=== PATIENT | female | born 1940 | race Caucasian/White ===

== ENCOUNTER → 2018-01-23 13:33 | Outpatient (CLI) | payer MEDICARE, MEDICAID, SELFPAY ==
--- NOTE | 2018-01-23 | DI.RAD.S_ITS ---
PROCEDURE: XR KNEE LT 1TO2V INDICATIONS: LEFT KNEE PAIN TECHNIQUE: 3 views of the knee were acquired. COMPARISON: None. FINDINGS: Bones: No fractures or dislocations. Severe joint space narrowing, subchondral sclerosis and osteophyte formation in the lateral femorotibial compartment and patellofemoral compartment. There is chondrocalcinosis. No suspicious bony lesions. Soft tissues: No joint effusion. No suspicious soft tissue calcifications. IMPRESSION: 1. Severe degenerative joint disease involving the lateral femorotibial compartment and patellofemoral compartment. 2. Chondrocalcinosis. Recommend clinical correlation for CPPD. Dictated by: Naya Rodriguez M.D. on 01/23/2018 at 17:14 Approved by: Naya Rodriguez M.D. on 01/23/2018 at 17:16
== END ==
PROVIDERS: Visit Provider Nurse Practitioner Family
DX: M17.12 Unilateral primary osteoarthritis, left knee (principal); M11.262 Other chondrocalcinosis, left knee; M25.562 Pain in left knee
CPT/HCPCS: 73560

== ENCOUNTER → 2018-02-02 07:49 | Outpatient (REF) | payer MEDICARE, MEDICAID, SELFPAY ==
[2018-02-02 08:36] LABS: Add Manual Diff / Slide Review NO; Basophils Percent Auto 0.8 % (0-2); Eosinophils Percent Auto 3.2 % (2-4); Hematocrit 40.7 % (36-46); Hemoglobin 13.8 g/dL (12.0-16.0); Lymphocytes Percent Auto 22.4 % (25-40); Mean Corpuscular HGB Conc 33.9 % (30-36); Mean Corpuscular Hemoglobin 30.2 PG (26-34); Mean Corpuscular Volume 88.9 fL (80-100); Monocytes Percent Auto 9.2 % (3-14); Neutrophils Absolute Auto 4000 /uL (3000-5900); Neutrophils Percent Auto 64.4 % (50-75); Platelet Count 220 X10^3/uL (150-400); Red Blood Cell Count 4.58 X10^6/uL (4.0-5.2); Red Cell Distribution Width 12.4 % (11.6-14.8); White Blood Cell Count 6.2 X10^3/uL (4.5-11.0)
[2018-02-02 08:52] LABS: BUN Creatinine Ratio 22.9 (6-22); Blood Urea Nitrogen 16 mg/dL (7-17); Calcium 9.4 mg/dL (8.4-10.2); Carbon Dioxide 31 mmol/L (22-32); Chloride 104 mmol/L (98-107); Estimated Glomerular Filt Rate > 60.0 mL/min (>60); Glucose 89 mg/dL (80-110); HEMOLYSIS < 15 (0-50); Magnesium 2.2 mg/dL (1.6-2.3); Potassium 4.3 mmol/L (3.4-5.1); Sodium 143 mmol/L (137-145)
== END ==
LOC: LAB 07:49
PROVIDERS: Visit Provider Nurse Practitioner Family
DX: M11.20 Other chondrocalcinosis, unspecified site (principal); M19.90 Unspecified osteoarthritis, unspecified site
CPT/HCPCS: 36415; 80048; 83735; 84443; 85025

== ENCOUNTER → 2018-02-27 11:00 | Outpatient (CLI) | payer MEDICARE, MEDICAID, SELFPAY ==
--- NOTE | 2018-02-27 | DI.US.S_ITS ---
PROCEDURE: US PELVIC COMPLETE INDICATIONS: POSTMENOPAUSAL BLEEDING TECHNIQUE: Real-time scanning was performed of the pelvic organs, with image documentation. Additional endovaginal scanning was necessary due to incomplete visualization of the adnexal and endometrial structures by transabdominal scanning. COMPARISON: None. FINDINGS: Transabdominal scanning: Limited scanning through the kidneys shows no hydronephrosis. No pathologic free abdominal or pelvic fluid. Endovaginal scanning: Uterus: Uterus is not well seen by transabdominal or endovaginal technique and appears enlarged. The endometrial complex is not well visualized cannot be accurately evaluated. Ovaries: Not visualized. IMPRESSION: Essentially nondiagnostic pelvic ultrasound as the uterus is not well-visualized, the endometrial complex is suboptimally visualized and the ovaries are not seen bilaterally. If indicated, pre and post contrast gynecologic protocol MRI could be performed for further assessment. Dictated by: Kwaku CABRAL Interpreted: Crystal Edgar MD on 02/27/2018 at 12:15 Approved by: Crystal Edgar MD, PhD on 02/27/2018 at 13:49
== END ==
PROVIDERS: Visit Provider Nurse Practitioner Family
DX: N95.0 Postmenopausal bleeding (principal)
CPT/HCPCS: 76830; 76856

== ENCOUNTER → 2018-03-09 07:50 | Outpatient (REF) | payer MEDICARE, MEDICAID, SELFPAY ==
[2018-03-09 08:23] LABS: Estimated Glomerular Filt Rate > 60.0 mL/min (>60)
== END ==
LOC: LAB 07:50
PROVIDERS: Visit Provider Nurse Practitioner Family
DX: N95.0 Postmenopausal bleeding (principal)
CPT/HCPCS: 36415; 82565

== ENCOUNTER → 2018-03-21 16:28 | Outpatient (CLI) | payer MEDICARE, MEDICAID, SELFPAY ==
--- NOTE | 2018-03-21 16:32 | DI.MRI.S_ITS ---
PROCEDURE: MR PELVIS WO/W CON INDICATIONS: POST MENOPAUSAL BLEEDING TECHNIQUE: Coronal HASTE, sagittal breath-hold T2 FSE; axial T1 FSE with and without fat saturation through the pelvis. Optional long- and short-axis uterine nonbreath-hold T2 FSE through the uterus. Sagittal or axial dynamic VIBE during administration of contrast. Post-contrast axial or coronal VIBE/2-D FLASH with fat saturation from the iliac crests to the symphysis. Optional diffusion weighted imaging and ADC may be performed. COMPARISON: [facility], , US PELVIC COMPLETE, 02/27/2018, 11:24. FINDINGS: Image quality: Excellent. Uterus: Endometrium is normal in thickness. Junctional zone is normal in thickness at 12 mm or less. There is an ovoid T2 hypointense mass along the fundal endometrium with associated mild mass effect. Findings likely represent asymmetric also fibroid and measures approximately 1.6 x 1.4 x 1.6 cm. In addition, there is a large ovoid slightly lobulated T2 hyperintense mass in the left adnexa measuring approximately 8.1 x 7.6 x 8.0 cm which is contiguous with the uterus and most likely represents an exophytic fibroid. This demonstrates mildly heterogeneous hypoenhancement following contrast administration. In addition, there are a few additional small low T2 signal intensity foci within the uterus compatible with smaller fibroids. Adnexa: The ovaries appear within normal size limits. The left ovary abuts the left adnexal mass. Urinary system: The urinary bladder is partially distended with mild trabeculation of the bladder wall and small areas of cystic changes suggesting sequelae of chronic bladder outlet obstruction. Distal ureters are non distended. Urethra appears normal in morphology. Nodes and vessels: No pelvic or inguinal adenopathy by size criteria. Iliac vessels are normal in size. Bowel and peritoneum: No pathologic free pelvic fluid. Inferior colon and small bowel loops are normal in caliber. Soft tissues: No inguinal hernias. No findings of pelvic floor incompetence in the absence of provocation. Bones: There is heterogeneous bone marrow signal intensity consistent with hematopoietic marrow reconversion. In addition, there is a discrete ovoid T2 hyperintense lesion in the posterior right ilium measuring 1.6 x 0.9 x 1.9 cm which demonstrates enhancement following contrast administration. IMPRESSION: 1. Small T2 hypointense mass along the endometrium likely represents a submucosal fibroid and may be associated with patient's bleeding. 2. Large T2 hypointense exophytic mass contiguous with the left aspect of the uterus. This also likely represents a large fibroid. However, a low-grade leiomyosarcoma cannot be distinguished by imaging. Consider surgical consultation. 3. Enhancing lesion in the right iliac bone is nonspecific but metastatic disease cannot be excluded. Consider further evaluation with dedicated bone scan. 4. Mild trabeculation of the bladder wall suggesting sequela of chronic bladder outlet obstruction. Dictated by: Luciano Moses M.D. on 03/22/2018 at 15:06 Approved by: Luciano Moses M.D. on 03/22/2018 at 15:17
== END ==
PROVIDERS: Visit Provider Nurse Practitioner Family
DX: N95.0 Postmenopausal bleeding (principal); N85.9 Noninflammatory disorder of uterus, unspecified; N32.89 Other specified disorders of bladder; M89.9 Disorder of bone, unspecified
CPT/HCPCS: 72197; A9579

== ENCOUNTER → 2018-05-02 08:45 | Outpatient (REF) | payer MEDICARE, MEDICAID, SELFPAY ==
[2018-05-02 10:05] LABS: Add Manual Diff / Slide Review NO; Eosinophils Percent Auto 1.7 % (2-4); Hematocrit 40.8 % (36-46); Hemoglobin 13.7 g/dL (12.0-16.0); Lymphocytes Percent Auto 7.1 % (25-40); Mean Corpuscular HGB Conc 33.6 % (30-36); Mean Corpuscular Hemoglobin 29.9 PG (26-34); Mean Corpuscular Volume 88.9 fL (80-100); Monocytes Percent Auto 7.7 % (3-14); Neutrophils Absolute Auto 6400 /uL (3000-5900); Neutrophils Percent Auto 82.5 % (50-75); Platelet Count 210 X10^3/uL (150-400); Red Blood Cell Count 4.59 X10^6/uL (4.0-5.2); White Blood Cell Count 7.8 X10^3/uL (4.5-11.0)
[2018-05-02 10:18] LABS: Alanine Aminotransferase 19 IU/L (9-52); Albumin 4.1 g/dL (3.5-5.0); Albumin Globulin Ratio 1.4 (1.0-2.8); Alkaline Phosphatase 78 U/L (38-126); Aspartate Aminotransferase 19 IU/L (14-36); BUN Creatinine Ratio 25.7 (6-22); Bilirubin Total 0.6 mg/dL (0.2-1.3); Blood Urea Nitrogen 18 mg/dL (7-17); Calcium 9.2 mg/dL (8.4-10.2); Carbon Dioxide 30 mmol/L (22-32); Chloride 104 mmol/L (98-107); Cholesterol 223 mg/dL (140-199); Estimated Glomerular Filt Rate > 60.0 mL/min (>60); Globulin 2.9 g/dL (1.7-4.1); Glucose 80 mg/dL (80-110); HDL Cholesterol 61 mg/dL (40-60); HEMOLYSIS < 15 (0-50); LDL Cholesterol Calculated 148 mg/dL (<100); Sodium 144 mmol/L (137-145); Triglycerides 70 mg/dL (35-150)
== END ==
LOC: LAB 08:45
PROVIDERS: PCP Nurse Practitioner Family; Visit Provider Internal Medicine
DX: E78.5 Hyperlipidemia, unspecified (principal)
CPT/HCPCS: 36415; 80053; 80061; 85025

== ENCOUNTER → 2018-06-08 19:06 | Outpatient (REF) | payer MEDICARE, MEDICAID, SELFPAY ==
[2018-06-12 14:43] LABS: Fecal Immunochemical Test NOT DETECTED
== END ==
LOC: LAB 19:06
PROVIDERS: PCP Nurse Practitioner Family; Visit Provider Nurse Practitioner Family
DX: K62.5 Hemorrhage of anus and rectum (principal)
CPT/HCPCS: 82274

== ENCOUNTER → 2018-06-15 07:22 | Outpatient (REF) | payer MEDICARE, MEDICAID, SELFPAY ==
[2018-06-15 07:36] LABS: Hemoglobin 13.8 g/dL (12.0-16.0)
== END ==
LOC: LAB 07:22
PROVIDERS: PCP Nurse Practitioner Family; Visit Provider Nurse Practitioner Family
DX: K62.5 Hemorrhage of anus and rectum (principal)
CPT/HCPCS: 36415; 85014; 85018

== ENCOUNTER → 2018-09-23 08:06 | Outpatient (REF) | payer MEDICARE, MEDICAID, SELFPAY ==
[2018-09-23 08:09] LABS: Bacteria Urine None Seen
[2018-09-23 08:17] LABS: Appearance Urine UA CLEAR; Bilirubin Urine UA NEGATIVE (NEGATIVE); Color Urine UA YELLOW; Glucose Urine UA NEGATIVE (Negative); Ketones Urine UA NEGATIVE (NEGATIVE); Leukocyte Esterase Urine UA NEGATIVE (NEGATIVE); Nitrite Urine UA NEGATIVE (Negative); Occult Blood Urine UA TRACE-INTACT (Negative); Protein Urine UA NEGATIVE (Negative); Urobilinogen Urine UA 0.2 E.U./dL (0.2)
[2018-09-23 08:31] LABS: Culture Indicated Urine Cult Not Indicated; RBC Urine 0-1/HPF (0-5/HPF); WBC Urine 0-1/HPF (0-5/HPF)
== END ==
LOC: LAB 08:06
PROVIDERS: PCP Nurse Practitioner Family; Visit Provider Nurse Practitioner Family
DX: R35.0 Frequency of micturition (principal); R32 Unspecified urinary incontinence
CPT/HCPCS: 81001

== ENCOUNTER → 2018-09-24 08:23 | Outpatient (REF) | payer MEDICARE, MEDICAID, SELFPAY ==
[2018-09-24 08:57] LABS: Blood Urea Nitrogen 21 mg/dL (7-17); Calcium 9.5 mg/dL (8.4-10.2); Carbon Dioxide 27 mmol/L (22-32); Chloride 105 mmol/L (98-107); Cholesterol 251 mg/dL (140-199); Estimated Glomerular Filt Rate > 60.0 mL/min (>60); Glucose 83 mg/dL (80-110); HDL Cholesterol 66 mg/dL (40-60); HEMOLYSIS 15 (0-50); LDL Cholesterol Calculated 170 mg/dL (<100); Potassium 4.2 mmol/L (3.4-5.1); Sodium 140 mmol/L (137-145); Triglycerides 77 mg/dL (35-150)
[2018-09-24 09:07] LABS: Add Manual Diff / Slide Review NO; Basophils Absolute Auto 100 /uL (0-100); Basophils Percent Auto 0.9 % (0-2); Eosinophils Absolute Auto 200 /uL (0-450); Eosinophils Percent Auto 2.9 % (2-4); Hematocrit 42.1 % (36-46); Hemoglobin 14.1 g/dL (12.0-16.0); Lymphocytes Absolute Auto 1600 /uL (1100-4500); Lymphocytes Percent Auto 26.2 % (25-40); Mean Corpuscular HGB Conc 33.4 % (30-36); Mean Corpuscular Hemoglobin 29.5 PG (26-34); Mean Corpuscular Volume 88.4 fL (80-100); Monocytes Absolute Auto 400 /uL (0-900); Monocytes Percent Auto 6.3 % (3-14); Neutrophils Absolute Auto 3800 /uL (1500-7000); Neutrophils Percent Auto 63.7 % (50-75); Platelet Count 218 X10^3/uL (150-400); Red Blood Cell Count 4.76 X10^6/uL (4.0-5.2); Red Cell Distribution Width 12.9 % (11.6-14.8); White Blood Cell Count 5.9 X10^3/uL (4.5-11.0)
== END ==
LOC: LAB 08:23
PROVIDERS: PCP Nurse Practitioner Family; Visit Provider Nurse Practitioner Family
DX: K62.5 Hemorrhage of anus and rectum (principal); E78.2 Mixed hyperlipidemia
CPT/HCPCS: 36415; 80048; 80061; 85025

== ENCOUNTER → 2018-09-28 07:30 | Outpatient (REF) | payer MEDICARE, MEDICAID, SELFPAY ==
[2018-09-28 09:40] LABS: Carcinoembryonic Antigen 1.4 ng/mL (0.1-3.0)
== END ==
LOC: LAB 07:30
PROVIDERS: PCP Nurse Practitioner Family; Visit Provider Nurse Practitioner Family
DX: K62.5 Hemorrhage of anus and rectum (principal)
CPT/HCPCS: 36415; 82378

== ENCOUNTER → 2019-04-24 20:37 | Outpatient (ROUT) | payer MEDICARE, MEDICAID, SELFPAY ==
[2019-04-24 20:43] LABS: Appearance Urine UA CLEAR; Bilirubin Urine UA NEGATIVE (NEGATIVE); Color Urine UA YELLOW; Glucose Urine UA NEGATIVE (Negative); Ketones Urine UA NEGATIVE (NEGATIVE); Leukocyte Esterase Urine UA 2+ (NEGATIVE); Nitrite Urine UA NEGATIVE (Negative); Occult Blood Urine UA TRACE-INTACT (Negative); Protein Urine UA NEGATIVE (Negative); Specific Gravity Urine UA 1.025 (1.000-1.035); Urobilinogen Urine UA 0.2 E.U./dL (0.2)
[2019-04-24 21:00] LABS: Bacteria Urine Few (2-10); Culture Indicated Urine Specimen Cultured; Mucus Urine 1+ (Negative); RBC Urine 5-10/HPF (0-5/HPF); Squamous Epithelial Cell Urine 1-5 /HPF (0-5/HPF); Transitional Epi Cells Urine 1-5/HPF (0-5/HPF); WBC Urine 30-100/HPF (0-5/HPF)
== END ==
PROVIDERS: PCP Nurse Practitioner Family; Visit Provider Nurse Practitioner Family
DX: R39.81 Functional urinary incontinence (principal)
CPT/HCPCS: 81001; 87077; 87086; 87147

== ENCOUNTER → 2019-06-27 02:56 | Outpatient (ROUT) | payer MEDICARE, MEDICAID, SELFPAY ==
[2019-06-27 03:01] LABS: RBC Urine None Seen (0-5/HPF)
[2019-06-27 03:04] LABS: Appearance Urine UA CLEAR; Bilirubin Urine UA NEGATIVE (NEGATIVE); Color Urine UA YELLOW; Glucose Urine UA NEGATIVE (Negative); Ketones Urine UA NEGATIVE (NEGATIVE); Leukocyte Esterase Urine UA 1+ (NEGATIVE); Nitrite Urine UA NEGATIVE (Negative); Occult Blood Urine UA NEGATIVE (Negative); Protein Urine UA NEGATIVE (Negative); Urobilinogen Urine UA 0.2 E.U./dL (0.2)
[2019-06-27 03:44] LABS: Bacteria Urine Few (2-10); Culture Indicated Urine Specimen Cultured; Squamous Epithelial Cell Urine 0-1 /HPF (0-5/HPF); WBC Urine 0-1/HPF (0-5/HPF)
== END ==
PROVIDERS: PCP Nurse Practitioner Family; Visit Provider Nurse Practitioner Family
DX: R35.0 Frequency of micturition (principal)
CPT/HCPCS: 81001; 87086

== ENCOUNTER → 2019-08-16 07:24 | Outpatient (ROUT) | payer OTHER, MEDICAID, SELFPAY ==
[2019-08-16 08:29] LABS: Add Manual Diff / Slide Review NO; Alanine Aminotransferase 14 IU/L (<35); Albumin 4.5 g/dL (3.5-5.0); Albumin Globulin Ratio 1.3 (1.0-2.8); Alkaline Phosphatase 90 U/L (38-126); Aspartate Aminotransferase 22 IU/L (14-36); BUN Creatinine Ratio 27.5 (6-22); Basophils Absolute Auto 100 /uL (0-100); Basophils Percent Auto 0.9 % (0-2); Bilirubin Total 0.4 mg/dL (0.2-1.3); Blood Urea Nitrogen 22 mg/dL (7-17); Calcium 9.8 mg/dL (8.4-10.2); Carbon Dioxide 27 mmol/L (22-32); Chloride 104 mmol/L (98-107); Eosinophils Absolute Auto 300 /uL (0-450); Eosinophils Percent Auto 3.8 % (2-4); Estimated Glomerular Filt Rate > 60.0 mL/min (>60); Globulin 3.5 g/dL (1.7-4.1); Glucose 94 mg/dL (80-110); HEMOLYSIS < 15 (0-50); Hematocrit 40.2 % (36-46); Hemoglobin 13.8 g/dL (12.0-16.0); Lymphocytes Absolute Auto 1400 /uL (1100-4500); Lymphocytes Percent Auto 17.8 % (25-40); Mean Corpuscular HGB Conc 34.3 % (30-36); Mean Corpuscular Volume 87.4 fL (80-100); Monocytes Absolute Auto 500 /uL (0-900); Monocytes Percent Auto 6.5 % (3-14); Neutrophils Absolute Auto 5500 /uL (1500-7000); Platelet Count 240 X10^3/uL (150-400); Potassium 4.4 mmol/L (3.4-5.1); Red Cell Distribution Width 12.7 % (11.6-14.8); Sodium 142 mmol/L (137-145); White Blood Cell Count 7.7 X10^3/uL (4.5-11.0)
[2019-08-16 09:12] LABS: Thyroid Stimulating Hormone 2.49 uIU/mL (0.47-4.68)
[2019-08-16 09:18] LABS: Vitamin B12 296 pg/mL (239-931)
== END ==
PROVIDERS: PCP Nurse Practitioner Family; Visit Provider Nurse Practitioner Family
DX: R79.89 Other specified abnormal findings of blood chemistry (principal); E03.8 Other specified hypothyroidism; R53.83 Other fatigue
CPT/HCPCS: 36415; 80053; 82607; 84443; 85025

== ENCOUNTER → 2019-08-24 12:03 | Outpatient (ROUT) | payer OTHER, MEDICAID, SELFPAY ==
[2019-08-24 12:05] LABS: Bacteria Urine None Seen; RBC Urine None Seen (0-5/HPF); WBC Urine None Seen (0-5/HPF)
[2019-08-24 12:17] LABS: Appearance Urine UA CLEAR; Bilirubin Urine UA NEGATIVE (NEGATIVE); Color Urine UA YELLOW; Glucose Urine UA NEGATIVE (Negative); Ketones Urine UA NEGATIVE (NEGATIVE); Leukocyte Esterase Urine UA NEGATIVE (NEGATIVE); Nitrite Urine UA NEGATIVE (Negative); Occult Blood Urine UA NEGATIVE (Negative); Protein Urine UA NEGATIVE (Negative); Specific Gravity Urine UA 1.015 (1.000-1.035); Urobilinogen Urine UA 0.2 E.U./dL (0.2)
[2019-08-24 12:18] LABS: pH Urine UA 7.5 (4.5-8.0)
[2019-08-24 12:19] LABS: Culture Indicated Urine Cult Not Indicated; Urine Comments Microscopic Normal
== END ==
PROVIDERS: PCP Nurse Practitioner Family; Visit Provider Nurse Practitioner Family
DX: R53.83 Other fatigue (principal); R35.0 Frequency of micturition
CPT/HCPCS: 81001

== ENCOUNTER → 2019-12-27 07:21 | Outpatient (ROUT) | payer OTHER, MEDICAID, SELFPAY ==
[2019-12-27 08:37] LABS: BUN Creatinine Ratio 27.6 (6-22); Blood Urea Nitrogen 21 mg/dL (7-17); Carbon Dioxide 28 mmol/L (22-32); Chloride 104 mmol/L (98-107); Estimated Glomerular Filt Rate > 60.0 mL/min (>60); Glucose 92 mg/dL (80-110); HEMOLYSIS < 15 (0-50); Potassium 4.3 mmol/L (3.4-5.1); Sodium 139 mmol/L (137-145)
== END ==
PROVIDERS: PCP Nurse Practitioner Family; Visit Provider Nurse Practitioner Family
DX: R60.9 Edema, unspecified (principal)
CPT/HCPCS: 36415; 80048

== ENCOUNTER → 2020-02-12 07:25 | Outpatient (ROUT) | payer OTHER, MEDICAID, SELFPAY ==
[2020-02-12 08:23] LABS: Add Manual Diff / Slide Review NO; Basophils Absolute Auto 0 /uL (0-100); Basophils Percent Auto 0.4 % (0-2); Eosinophils Absolute Auto 100 /uL (0-450); Eosinophils Percent Auto 2.3 % (2-4); Hematocrit 40.8 % (36-46); Hemoglobin 13.5 g/dL (12.0-16.0); Lymphocytes Absolute Auto 1300 /uL (1100-4500); Lymphocytes Percent Auto 20.1 % (25-40); Mean Corpuscular HGB Conc 33.2 % (30-36); Mean Corpuscular Hemoglobin 29.5 PG (26-34); Mean Corpuscular Volume 88.9 fL (80-100); Monocytes Absolute Auto 400 /uL (0-900); Monocytes Percent Auto 6.6 % (3-14); Neutrophils Absolute Auto 4600 /uL (1500-7000); Neutrophils Percent Auto 70.6 % (50-75); Platelet Count 257 X10^3/uL (150-400); Red Blood Cell Count 4.59 X10^6/uL (4.0-5.2); Red Cell Distribution Width 12.9 % (11.6-14.8); White Blood Cell Count 6.5 X10^3/uL (4.5-11.0)
[2020-02-12 08:30] LABS: BUN Creatinine Ratio 22.4 (6-22); Blood Urea Nitrogen 15 mg/dL (7-17); Calcium 9.6 mg/dL (8.4-10.2); Carbon Dioxide 26 mmol/L (22-32); Chloride 107 mmol/L (98-107); Estimated Glomerular Filt Rate > 60.0 mL/min (>60); Glucose 96 mg/dL (80-110); HEMOLYSIS < 15 (0-50); Potassium 4.1 mmol/L (3.4-5.1); Sodium 139 mmol/L (137-145)
[2020-02-12 09:05] LABS: Thyroid Stimulating Hormone 2.29 uIU/mL (0.47-4.68)
== END ==
PROVIDERS: PCP Nurse Practitioner Family; Visit Provider Nurse Practitioner Family
DX: F32.9 Major depressive disorder, single episode, unspecified (principal)
CPT/HCPCS: 36415; 80048; 84443; 85025

== ENCOUNTER → 2020-07-08 08:14 | Outpatient (ROUT) | payer OTHER, MEDICAID, SELFPAY ==
[2020-07-08 09:05] LABS: Add Manual Diff / Slide Review NO; Basophils Absolute Auto 0 /uL (0-100); Basophils Percent Auto 0.5 % (0-2); Eosinophils Absolute Auto 100 /uL (0-450); Eosinophils Percent Auto 2.2 % (2-4); Hematocrit 41.4 % (36-46); Lymphocytes Absolute Auto 1400 /uL (1100-4500); Lymphocytes Percent Auto 21.3 % (25-40); Mean Corpuscular HGB Conc 33.7 % (30-36); Mean Corpuscular Hemoglobin 29.9 PG (26-34); Mean Corpuscular Volume 88.9 fL (80-100); Monocytes Absolute Auto 300 /uL (0-900); Monocytes Percent Auto 5.1 % (3-14); Neutrophils Absolute Auto 4700 /uL (1500-7000); Neutrophils Percent Auto 70.9 % (50-75); Platelet Count 238 X10^3/uL (150-400); Red Blood Cell Count 4.66 X10^6/uL (4.0-5.2); White Blood Cell Count 6.6 X10^3/uL (4.5-11.0)
[2020-07-08 10:01] LABS: Thyroid Stimulating Hormone 1.62 uIU/mL (0.47-4.68)
[2020-07-08 12:52] LABS: BUN Creatinine Ratio 21.6 (6-22); Blood Urea Nitrogen 16 mg/dL (7-17); Calcium 9.6 mg/dL (8.4-10.2); Carbon Dioxide 32 mmol/L (22-32); Chloride 107 mmol/L (98-107); Estimated Glomerular Filt Rate > 60.0 mL/min (>60); Glucose 100 mg/dL (80-110); HEMOLYSIS < 15 (0-50); Sodium 142 mmol/L (137-145)
[2020-07-08 13:40] LABS: Vitamin B12 251 pg/mL (239-931)
== END ==
PROVIDERS: PCP Nurse Practitioner Family; Visit Provider Nurse Practitioner Family
DX: R41.82 Altered mental status, unspecified (principal)
CPT/HCPCS: 36415; 80048; 82607; 84443; 85025

== ENCOUNTER → 2020-08-08 16:16 | Outpatient (ROUT) | payer OTHER, MEDICAID, SELFPAY ==
[2020-08-08 16:24] LABS: Bacteria Urine None Seen; RBC Urine None Seen (0-5/HPF); WBC Urine None Seen (0-5/HPF)
[2020-08-08 16:40] LABS: Appearance Urine UA CLEAR; Bilirubin Urine UA NEGATIVE (NEGATIVE); Color Urine UA YELLOW; Glucose Urine UA NEGATIVE (Negative); Ketones Urine UA NEGATIVE (NEGATIVE); Leukocyte Esterase Urine UA NEGATIVE (NEGATIVE); Nitrite Urine UA NEGATIVE (Negative); Occult Blood Urine UA NEGATIVE (Negative); Protein Urine UA NEGATIVE (Negative); Urobilinogen Urine UA 0.2 E.U./dL (0.2)
[2020-08-08 16:55] LABS: Culture Indicated Urine Cult Not Indicated; Squamous Epithelial Cell Urine 1-5 /HPF (0-5/HPF)
== END ==
PROVIDERS: PCP Nurse Practitioner Family; Visit Provider Nurse Practitioner Family
DX: R35.0 Frequency of micturition (principal); R32 Unspecified urinary incontinence
CPT/HCPCS: 81001

== ENCOUNTER → 2020-08-26 07:27 | Outpatient (ROUT) | payer OTHER, MEDICAID, SELFPAY ==
[2020-08-26 07:41] LABS: Ammonia (NH3) < 9 umol/L (9-30)
[2020-08-26 08:33] LABS: Add Manual Diff / Slide Review NO; Basophils Absolute Auto 100 /uL (0-100); Basophils Percent Auto 0.6 % (0-2); Eosinophils Absolute Auto 200 /uL (0-450); Eosinophils Percent Auto 2.5 % (2-4); Hematocrit 40.2 % (36-46); Hemoglobin 13.5 g/dL (12.0-16.0); Lymphocytes Absolute Auto 1600 /uL (1100-4500); Lymphocytes Percent Auto 20.7 % (25-40); Mean Corpuscular HGB Conc 33.7 % (30-36); Mean Corpuscular Hemoglobin 29.8 PG (26-34); Mean Corpuscular Volume 88.5 fL (80-100); Monocytes Absolute Auto 500 /uL (0-900); Monocytes Percent Auto 6.3 % (3-14); Neutrophils Absolute Auto 5500 /uL (1500-7000); Neutrophils Percent Auto 69.9 % (50-75); Platelet Count 263 X10^3/uL (150-400); Red Blood Cell Count 4.54 X10^6/uL (4.0-5.2); Red Cell Distribution Width 12.8 % (11.6-14.8); White Blood Cell Count 7.8 X10^3/uL (4.5-11.0)
[2020-08-26 08:41] LABS: Alanine Aminotransferase 13 IU/L (<35); Albumin Globulin Ratio 1.3 (1.0-2.8); Alkaline Phosphatase 76 U/L (38-126); Aspartate Aminotransferase 20 IU/L (14-36); BUN Creatinine Ratio 26.8 (6-22); Bilirubin Total 0.4 mg/dL (0.2-1.3); Blood Urea Nitrogen 19 mg/dL (7-17); Calcium 9.6 mg/dL (8.4-10.2); Carbon Dioxide 29 mmol/L (22-32); Chloride 107 mmol/L (98-107); Estimated Glomerular Filt Rate > 60.0 mL/min (>60); Globulin 3.2 g/dL (1.7-4.1); Glucose 97 mg/dL (80-110); HEMOLYSIS < 15 (0-50); Sodium 139 mmol/L (137-145); Total Protein 7.2 g/dL (6.3-8.2)
[2020-08-26 09:31] LABS: Vitamin B12 263 pg/mL (239-931)
== END ==
PROVIDERS: PCP Nurse Practitioner Family; Visit Provider Nurse Practitioner Family
DX: F22 Delusional disorders (principal)
CPT/HCPCS: 36415; 80053; 82140; 82607; 85025

== ENCOUNTER 2020-09-17 13:56 | Emergency (ER) | payer OTHER, MEDICAID, SELFPAY ==
[2020-09-17 14:00] VITALS: BP 138/77; PULSE 90; RESP 20; TEMP 36.9; O2SAT 95; BMI 31.8
--- NOTE | 2020-09-17 14:04 | ED.AMS ---
HPI - Altered Mental Status General Chief Complaint: Neuro Symptoms/Deficit Stated Complaint: auditory hallucinations/delusions not at baseline Time Seen by Provider: 09/17/20 13:57 Source: patient Limitations: no limitations History of Present Illness HPI narrative: 79-year-old female nonsmoker with advancing behavior disorder and delirium from a local nursing facility presents due to the presence of increasing auditory hallucinations over the past month or so. She has been seen by her primary care provider and they have initiated medications but the patient escalated earlier today and was sent here for evaluation. Patient has had no trauma has had no fever chills denies nausea, vomiting or diarrhea. She has not been violent, denies desire to hurt herself or others. She is not currently hearing or seeing anything that is not there and is very pleasant and agreeable. Onset (ago): day(s) Severity: mild Associated symptoms: denies other symptoms Related Data Home Medications Medication Instructions Recorded Confirmed acetaminophen 325 mg PO BID 09/17/20 09/17/20 acetaminophen 650 mg PO Q4H PRN 09/17/20 09/17/20 docusate sodium 100 mg PO DAILY PRN 09/17/20 09/17/20 fluticasone propionate [Allergy 1 spray INTRANASAL DAILY PRN 09/17/20 09/17/20 Relief (fluticasone)] fluticasone propionate [Flonase] 1 spray INTRANASAL DAILY PRN 09/17/20 09/17/20 phenyleph-shark [id number] 1 applic NM QID PRN 09/17/20 09/17/20 [Preparation H] quetiapine 25 mg PO BID 09/17/20 09/17/20 Allergies Allergy/AdvReac Type Severity Reaction Status Date / Time Penicillins [PENICILLINS] Allergy Unknown Verified 09/17/20 14:07 Review of Systems Constitutional Constitutional: Denies chills, Denies fatigue, Denies fever(s), Denies frequent falls, Denies lethargy and Denies weakness Eyes Eyes: Denies change in vision, Denies eye discharge, Denies irritation and Denies loss of vision ENT Ears, Nose, Mouth, and Throat: Denies change in voice, Denies dizziness, Denies neck pain, Denies sore throat and Denies throat swelling Cardiovascular Cardiovascular: Denies chest pain, Denies irregular heart rhythm, Denies lightheadedness, Denies palpitations, Denies dyspnea, Denies dyspnea on exertion and Denies orthopnea Respiratory Respiratory: Denies cough, Denies dyspnea, Denies dyspnea on exertion and Denies wheezing Gastrointestinal Gastrointestinal: Denies abdominal pain, Denies change in bowel habits, Denies diarrhea, Denies nausea and Denies vomiting Musculoskeletal Musculoskeletal: Denies neck pain and Denies numbness Integumentary/Breasts Skin/Breast: Denies pruritus, Denies erythema, Denies rash and Denies wounds Neurologic Neurologic: Denies behavioral changes, Denies confusion, Denies dizziness, Denies frequent falls, Denies loss of vision, Denies numbness and Denies weakness Psychiatric Psychiatric: Denies anxiety, Denies behavioral changes, Denies confusion, Denies depression, Reports auditory hallucinations, Denies homicidal ideation and Denies suicidal ideation Endocrine Endocrine: Denies fatigue, Denies flushing and Denies palpitations Hematologic/Lymphatic Hematologic/Lymphatic: Denies easy bruising Allergic/Immunologic Allergic/Immunologic: Denies urticaria, Denies throat swelling and Denies wheezing Patient History Social History Smoking Status: Never smoker Smoking Status: Never smoker Exam Narrative Exam Narrative: GENERAL: [79] year old patient appears stated age. Well-nourished, well-developed patient, in no obvious distress, very pleasant, very hard of hearing. No current complaints HEAD: Atraumatic. Normocephalic. EYES: Pupils equal round and reactive. Extraocular motions intact. No scleral icterus. No injection or drainage. ENT: Nose without bleeding, purulent drainage. Throat without erythema, tonsillar hypertrophy or exudate. Airway patent. NECK: Trachea midline. Non tender CARDIOVASCULAR: Regular rate and rhythm without murmurs, gallops, or rubs. RESPIRATORY: Clear to auscultation. Breath sounds equal bilaterally. No wheezes, rales, or rhonchi. GASTROINTESTINAL: Abdomen soft, non-tender, nondistended. EXTREMITIES: No edema or joint tenderness. BACK: Nontender without deformity or crepitance. No flank tenderness. NEURO: Moving all extremities, cranial nerves 2-12 grossly intact SKIN: No rash or erythema of visible areas Initial Vital Signs Initial Vital Signs: Vital Signs Temperature 98.5 F 09/17/20 14:00 Pulse Rate 90 09/17/20 14:00 Respiratory Rate 20 09/17/20 14:00 Blood Pressure 138/77 09/17/20 14:00 Pulse Oximetry 95 09/17/20 14:00 Course Orders Ordered: ED Orders 09/17/20 14:05 CT head/brain wo con Stat 09/17/20 14:10 Urinalysis and Microscopic Stat 09/17/20 14:17 Complete Blood Count AUTO DIFF Stat Comprehensive Metabolic Panel Stat Vital Signs Vital signs: Vital Signs - 8 hr 09/17/20 14:00 09/17/20 14:30 09/17/20 14:52 Temperature 98.5 F Pulse Rate 90 78 83 Respiratory Rate 20 Blood Pressure 138/77 141/65 H 147/71 H Pulse Oximetry 95 94 97 09/17/20 15:00 09/17/20 15:30 Temperature Pulse Rate 77 70 Respiratory Rate Blood Pressure 142/69 H 139/63 Pulse Oximetry 97 98 MDM - Altered Mental Status Lab Data Result diagrams: 09/17/20 14:17 09/17/20 14:17 Labs: Lab Results 09/17/20 09/17/20 09/17/20 Range/Units 14:10 14:17 14:17 WBC 8.8 (4.5-11.0) X10^3/uL RBC 4.45 (4.0-5.2) X10^6/uL Hgb 13.1 (12.0-16.0) g/dL Hct 39.7 (36-46) % MCV 89.3 (80-100) fL MCH 29.5 (26-34) PG MCHC 33.1 (30-36) % RDW 12.9 (11.6-14.8) % Plt Count 280 (150-400) X10^3/uL Neut % (Auto) 78.1 H (50-75) % Lymph % (Auto) 13.9 L (25-40) % [place] % (Auto) 6.7 (3-14) % Eos % (Auto) 0.7 L (2-4) % Baso % (Auto) 0.6 (0-2) % Neut # (Auto) 6800 (6811-2126) /uL Lymph # (Auto) 1200 (4580-9830) /uL [place] # (Auto) 600 (0-900) /uL Eos # (Auto) 100 (0-450) /uL Baso # (Auto) 100 (0-100) /uL Sodium 141 (137-145) mmol/L Potassium 4.1 (3.4-5.1) mmol/L Chloride 106 (98-107) mmol/L Carbon Dioxide 28 (22-32) mmol/L BUN 19 H (7-17) mg/dL Creatinine 0.76 (0.52-1.04) mg/dL Estimated GFR > 60.0 (>60) mL/min BUN/Creatinine Ratio 25.0 H (6-22) Glucose 114 H (80-110) mg/dL Calcium 9.5 (8.4-10.2) mg/dL Total Bilirubin 0.2 (0.2-1.3) mg/dL AST 18 (14-36) IU/L ALT 14 (<35) IU/L Alkaline Phosphatase 84 (38-126) U/L Total Protein 7.2 (6.3-8.2) g/dL Albumin 4.1 (3.5-5.0) g/dL Globulin 3.1 (1.7-4.1) g/dL Albumin/Globulin Ratio 1.3 (1.0-2.8) Urine Color Yellow Urine Appearance Clear Urine pH 7.0 (4.5-8.0) Ur Specific [place] 1.020 (1.000-1.035) Urine Protein Negative (Negative) Urine Glucose (UA) Negative (Negative) g/dL Urine Ketones Negative (NEGATIVE) Urine Occult Blood Trace-intact (Negative) Urine Nitrate Negative (Negative) Urine Bilirubin Negative (NEGATIVE) Urine Urobilinogen 0.2 (0.2) E.U./dL Ur Leukocyte Esterase Negative (NEGATIVE) Urine RBC 0-1/hpf (0-5/HPF) Urine WBC 1-5/hpf (0-5/HPF) Ur Squamous Epith Cells 0-1 /hpf (0-5/HPF) Urine Bacteria Few (2-10) H (None) Hyaline Casts 0-1/lpf (None) Ur Culture Indicated? Cult not indicated Imaging Data CT scan - head: Radiologist's Impression: Chart Viewer Diagnostics DATE TYPE STATUS REF RANGE/AUTHOR Hx Today 14:05 Ricardo Gross 03/21/18 16:32 Luciano Moses 02/27/18 00:00 Crystal Edgar 01/23/18 00:00 Sacha Rodriguez 08/24/16 11:08 08/24/16 11:08 Perri Gaytan 79, [id number] [facility], Main ED R05 160.02cm 81.647kg BMI: 31.9kg/m? Neuro Symptoms/Deficit Search Chart No Data to Display ONSET Today 15:30 Perri Gaytan 79 F [address] [id number] Scan ReportSigned Patient: Perri Gaytan RMR#: [id number]: 1940cct:[id number]/Sex: 79 / FDate of Service: 09/17/20Loc: EDAccession Number: [id number] Procedure: CT head/brain wo con Ordering Provider: Dustin Villegas D.O. PROCEDURE: CT HEAD/BRAIN WO CON INDICATIONS: altered, confused TECHNIQUE: Noncontrast 4.5 mm thick angled axial sections acquired from the foramen magnum to the vertex, with coronal and sagittal reformats. For radiation dose reduction, the following was used: automated exposure control, adjustment of mA and/or kV according to patient size. COMPARISON: [facility], CT, HEAD WITHOUT CONTRAST, 08/24/2016, 11:09. FINDINGS: Image quality: Excellent. CSF spaces: Basal cisterns are patent. No extra-axial fluid collections. The ventricles are symmetric in size and shape. Brain: No intracranial bleeds or masses. There is moderate cerebral volume loss for age, with resultant ventricular and sulcal prominence. There are moderate periventricular and deep white matter chronic small vessel ischemic changes. Stable appearance of chronic right lacunar infarcts. There is intracranial internal carotid artery atherosclerosis. Skull and face: Calvarium and visualized facial bones appear intact, without suspicious lesions. Sinuses: Visualized sinuses and mastoids are clear. IMPRESSION: 1. CT head without acute intracranial abnormalities or acute calvarial fractures. 2. Age-related senescent changes and sequela of moderate chronic small vessel ischemic disease. 3. Stable appearance of remote right basal ganglial lacunar infarctions. Dictated by: Ricardo Gross M.D. on 09/17/2020 at 14:56 Approved by: Ricardo Gross M.D. on 09/17/2020 at 14:58 MDM Narrative Medical decision making narrative: Elderly female with increasing auditory hallucinations presents for evaluation. She is currently at her apparent baseline, physical exam is reassuring, no significant abnormalities in her labs, physical exam or head CT. There is no obvious reversible cause. I have discussed this case with her primary care provider who agrees to receive her back and will alter her medications accordingly. Discharge Plan Departure Patient Disposition: Home Clinical Impression: Delirium Instructions: Delirium Activity Restrictions/Additional Instructions: *You have been diagnosed with [auditory hallucinations and confusion] *What to do: *Take medications as directed *Follow up with your primary care provider in 2-3 days, call for an appointment. Let them know you were seen in the Emergency Department and that we ask that you be seen in follow up *Return to ER if you should have any new, worsening or concerning symptoms Prescriptions: No Action acetaminophen 325 mg Tablet 325 mg PO BID RF: 0 quetiapine 25 mg Tablet 25 mg PO BID RF: 0 acetaminophen 325 mg Tablet 650 mg PO Q4H PRN (Reason: Fever) RF: 0 docusate sodium 100 mg Capsule 100 mg PO DAILY PRN (Reason: Constipation) RF: 0 fluticasone propionate [Allergy Relief (fluticasone)] 50 mcg/actuation [place],Suspension 1 spray INTRANASAL DAILY PRN (Reason: Congestion) RF: 0 fluticasone propionate [Flonase] 50 mcg/actuation [place],Suspension 1 spray INTRANASAL DAILY PRN (Reason: Congestion) RF: 0 Preparation H Cream 1 applic NM QID PRN (Reason: Hemorrhoids) RF: 0 Referrals: Ayanna Darnell ARNP [Primary Care Provider] -
[2020-09-17 14:24] LABS: Add Manual Diff / Slide Review NO; Basophils Absolute Auto 100 /uL (0-100); Basophils Percent Auto 0.6 % (0-2); Eosinophils Absolute Auto 100 /uL (0-450); Eosinophils Percent Auto 0.7 % (2-4); Hematocrit 39.7 % (36-46); Hemoglobin 13.1 g/dL (12.0-16.0); Lymphocytes Absolute Auto 1200 /uL (1100-4500); Lymphocytes Percent Auto 13.9 % (25-40); Mean Corpuscular HGB Conc 33.1 % (30-36); Mean Corpuscular Hemoglobin 29.5 PG (26-34); Mean Corpuscular Volume 89.3 fL (80-100); Monocytes Absolute Auto 600 /uL (0-900); Monocytes Percent Auto 6.7 % (3-14); Neutrophils Absolute Auto 6800 /uL (1500-7000); Neutrophils Percent Auto 78.1 % (50-75); Platelet Count 280 X10^3/uL (150-400); Red Blood Cell Count 4.45 X10^6/uL (4.0-5.2); Red Cell Distribution Width 12.9 % (11.6-14.8); White Blood Cell Count 8.8 X10^3/uL (4.5-11.0)
[2020-09-17 14:30] VITALS: BP 141/65; PULSE 78; O2SAT 94
[2020-09-17 14:35] LABS: Appearance Urine UA CLEAR; Bilirubin Urine UA NEGATIVE (NEGATIVE); Color Urine UA YELLOW; Glucose Urine UA NEGATIVE (Negative); Ketones Urine UA NEGATIVE (NEGATIVE); Leukocyte Esterase Urine UA NEGATIVE (NEGATIVE); Nitrite Urine UA NEGATIVE (Negative); Occult Blood Urine UA TRACE-INTACT (Negative); Protein Urine UA NEGATIVE (Negative); Urobilinogen Urine UA 0.2 E.U./dL (0.2)
[2020-09-17 14:40] LABS: Alanine Aminotransferase 14 IU/L (<35); Albumin 4.1 g/dL (3.5-5.0); Albumin Globulin Ratio 1.3 (1.0-2.8); Alkaline Phosphatase 84 U/L (38-126); Aspartate Aminotransferase 18 IU/L (14-36); Bilirubin Total 0.2 mg/dL (0.2-1.3); Blood Urea Nitrogen 19 mg/dL (7-17); Calcium 9.5 mg/dL (8.4-10.2); Carbon Dioxide 28 mmol/L (22-32); Chloride 106 mmol/L (98-107); Estimated Glomerular Filt Rate > 60.0 mL/min (>60); Globulin 3.1 g/dL (1.7-4.1); Glucose 114 mg/dL (80-110); Potassium 4.1 mmol/L (3.4-5.1); Sodium 141 mmol/L (137-145); Total Protein 7.2 g/dL (6.3-8.2)
[2020-09-17 14:49] LABS: HEMOLYSIS < 15 (0-50)
[2020-09-17 14:50] LABS: Bacteria Urine Few (2-10); Culture Indicated Urine Cult Not Indicated; Hyaline Casts Urine 0-1/LPF; RBC Urine 0-1/HPF (0-5/HPF); Squamous Epithelial Cell Urine 0-1 /HPF (0-5/HPF); WBC Urine 1-5/HPF (0-5/HPF)
[2020-09-17 14:52] VITALS: BP 147/71; PULSE 83; O2SAT 97
[2020-09-17 15:00] VITALS: BP 142/69; PULSE 77; O2SAT 97
[2020-09-17 15:30] VITALS: BP 139/63; PULSE 70; O2SAT 98
[2020-09-17 16:00] VITALS: BP 132/69; PULSE 78; TEMP 37.1; O2SAT 95
== END 2020-09-17 16:08 | disposition home or self-care (01) ==
PROVIDERS: Emergency Provider Emergency Medicine; PCP Nurse Practitioner Family
DX: R41.0 Disorientation, unspecified (principal); R44.0 Auditory hallucinations
CPT/HCPCS: 36415; 70450; 80053; 81001; 85025; 99284

== ENCOUNTER → 2020-09-23 08:16 | Outpatient (ROUT) | payer OTHER, MEDICAID, SELFPAY ==
[2020-09-23 08:51] LABS: Cholesterol 237 mg/dL (140-199); HDL Cholesterol 58 mg/dL (40-60); LDL Cholesterol Calculated 153 mg/dL (<100); Triglycerides 129 mg/dL (35-150)
[2020-09-23 09:55] LABS: Folate 15.1 ng/mL (2.76-20.0); Vitamin B12 235 pg/mL (239-931)
== END ==
PROVIDERS: PCP Nurse Practitioner Family; Visit Provider Nurse Practitioner Family
DX: R41.0 Disorientation, unspecified (principal); E78.00 Pure hypercholesterolemia, unspecified
CPT/HCPCS: 36415; 80061; 82607; 82746

== ENCOUNTER 2020-10-07 16:37 | Observation (INO) | payer OTHER, MEDICAID, SELFPAY ==
[2020-10-07] VITALS (17 sets, daily range): BP systolic 133–166; BP diastolic 68–86; PULSE 64–84; RESP 17–20; TEMP 36.9; O2SAT 91–99
--- NOTE | 2020-10-07 17:11 | DI.RAD.S_ITS ---
PROCEDURE: XR CHEST 1V INDICATIONS: suspected sepsis TECHNIQUE: One view of the chest was acquired. COMPARISON: [facility], , CHEST 1 VIEW, 08/24/2016, 11:23. FINDINGS: Surgical changes and devices: None. Lungs and pleura: Probable patchy left basilar consolidation. No pleural effusions or pneumothorax. Mediastinum: Mediastinal contours appear normal. Mild cardiomegaly. Bones and chest wall: No suspicious bony lesions. Overlying soft tissues appear unremarkable. IMPRESSION: 1. Mild cardiomegaly. 2. Probable focal left basilar pneumonia. Dictated by: Avery Aleman M.D. on 10/07/2020 at 18:28 Approved by: Avery Aleman M.D. on 10/07/2020 at 18:29
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
[2020-10-07 17:27] LABS: Add Manual Diff / Slide Review NO; Basophils Absolute Auto 100 /uL (0-100); Basophils Percent Auto 0.8 % (0-2); Eosinophils Absolute Auto 100 /uL (0-450); Eosinophils Percent Auto 1.3 % (2-4); Hemoglobin 13.4 g/dL (12.0-16.0); Lactate (Lactic Acid) 1.1 mmol/L (0.7-2.1); Lymphocytes Absolute Auto 1300 /uL (1100-4500); Lymphocytes Percent Auto 19.3 % (25-40); Mean Corpuscular HGB Conc 33.4 % (30-36); Mean Corpuscular Volume 89.9 fL (80-100); Monocytes Absolute Auto 400 /uL (0-900); Monocytes Percent Auto 6.5 % (3-14); Neutrophils Absolute Auto 4800 /uL (1500-7000); Neutrophils Percent Auto 72.1 % (50-75); Platelet Count 232 X10^3/uL (150-400); Red Blood Cell Count 4.45 X10^6/uL (4.0-5.2); Red Cell Distribution Width 12.9 % (11.6-14.8); White Blood Cell Count 6.6 X10^3/uL (4.5-11.0)
[2020-10-07 17:28] LABS: Alanine Aminotransferase 12 IU/L (<35); Albumin 4.1 g/dL (3.5-5.0); Albumin Globulin Ratio 1.4 (1.0-2.8); Alkaline Phosphatase 72 U/L (38-126); Aspartate Aminotransferase 19 IU/L (14-36); BUN Creatinine Ratio 23.3 (6-22); Bilirubin Total 0.4 mg/dL (0.2-1.3); Blood Urea Nitrogen 20 mg/dL (7-17); Calcium 9.8 mg/dL (8.4-10.2); Carbon Dioxide 29 mmol/L (22-32); Chloride 106 mmol/L (98-107); Estimated Glomerular Filt Rate > 60.0 mL/min (>60); Globulin 2.9 g/dL (1.7-4.1); Glucose 102 mg/dL (80-110); HEMOLYSIS < 15 (0-50); Lipase 119 U/L (23-300); Potassium 3.8 mmol/L (3.4-5.1); Sodium 140 mmol/L (137-145)
[2020-10-07 17:45] LABS: Procalcitonin 0.04 ng/mL (<0.5)
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
[2020-10-07 18:42] LABS: Prothrombin Time 11.7 SECONDS (10.1-12.7)
[2020-10-07 18:45] LABS: PTT Partial Thromboplastin Tim 37 SECONDS (26.4-36.2)
--- NOTE | 2020-10-07 19:15 | PC.NURSE ---
BRIAN nurse Senia) called in and arrived to ED. provider aware.
--- NOTE | 2020-10-07 19:45 | PC.NURSE ---
BRIAN Soria at bedside.
--- NOTE | 2020-10-07 21:40 | PC.NURSE ---
At request of Adrián PLAZA, called [employer] [phone], [employer] to discuss safety plan.
--- NOTE | 2020-10-07 21:49 | PC.NURSE ---
Spoke w/ Catina Hart who approved social admission for patient safety. Felled Seam Operator aware.
[2020-10-07] MEDS: DOXYCYCLINE HYCLATE 100 MG TABLET PO (21:52)
[2020-10-07] MEDS: GENTAMICIN 160 MG in SODIUM CHLORIDE 0.9% 100 ML 104 ML IV (21:52)
[2020-10-07 22:38] LABS: COVID19 - ADMIT (NP swab/PCR) Negative (Negative)
--- NOTE | 2020-10-07 22:53 | PC.NURSE ---
Assisted patient with urination. She was able to get off the bed and on to the commode with very little assistance. Patient was able to complete the urination process and cleansing herself independently. Patient was then assisted back in bed, covered up, call light within reach, and patient instructed to use it for any need that may arise. Left patient napping.
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
[2020-10-08 00:06] LABS: Appearance Urine UA CLEAR; Bilirubin Urine UA NEGATIVE (NEGATIVE); Color Urine UA YELLOW; Glucose Urine UA NEGATIVE (Negative); Ketones Urine UA NEGATIVE (NEGATIVE); Leukocyte Esterase Urine UA TRACE (NEGATIVE); Nitrite Urine UA NEGATIVE (Negative); Occult Blood Urine UA TRACE-LYSED (Negative); Protein Urine UA NEGATIVE (Negative); Specific Gravity Urine UA >=1.030 (1.000-1.035); Urobilinogen Urine UA 0.2 E.U./dL (0.2)
[2020-10-08 00:22] VITALS: BP 131/62
[2020-10-08 00:32] LABS: UR Morphine/Opiate cutoff 300 Negative (Negative); Ur Creatinine 20 (Normal); Ur Specific Gravity >1.030 (Normal); Urine Amphetamines Negative (Negative); Urine Barbiturates Negative (Negative); Urine Benzodiazepines Negative (Negative); Urine Cocaine Negative (Negative); Urine MDMA Negative (Negative); Urine Methadone Negative (Negative); Urine Methamphetamines Negative (Negative); Urine Oxycodone Negative (Negative); Urine Phencyclidine Negative (Negative); Urine Tetrahydrocannabinol Negative (Negative); Urine Tricyclic Antidepressant Positive (Negative); Urine pH 6 (Normal)
[2020-10-08 00:33] LABS: Bacteria Urine Few (2-10); Culture Indicated Urine Specimen Cultured; Mucus Urine 2+ (Negative); RBC Urine 0-1/HPF (0-5/HPF); Squamous Epithelial Cell Urine 1-5 /HPF (0-5/HPF); WBC Urine 0-1/HPF (0-5/HPF)
[2020-10-08 01:50] VITALS: BP 157/83; PULSE 74; RESP 18; TEMP 36.2; O2SAT 94
[2020-10-08 02:00] VITALS: BMI 30.9
--- NOTE | 2020-10-08 04:10 | PC.NURSE ---
Patient has with her a dress, sandals,cloth masks, wearing a string bead bracelet, took off alert watch type band. Placed in her belongings bag as she requested.
[2020-10-08 08:01] VITALS: BP 173/80; PULSE 70; RESP 20; TEMP 36.7; O2SAT 96
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
[2020-10-08] MEDS: QUETIAPINE 25 MG TABLET 100 MG PO (10:26)
--- NOTE | 2020-10-08 10:43 | PC.NURSE ---
Patient got dressed and collected her things trying to leave. She was standing at her door wanting to find the front door because her family was waiting for her. This telegraphic typewriter operator chief redirected the patient to have a seat in the doorway and sat with her for a while. This telegraphic typewriter operator chief encouraged the patient to take her scheduled Seroquel which she eventually agreed to after having some questions about the medication answered. She is sitting pleasantly singing the same phrase repetitively to herself and engaging in conversation. Chair alarm attached.
--- NOTE | 2020-10-08 11:58 | PC.NURSE ---
Addendum entered by Hu White R.N. 10/08/20 12:02: Patient was becoming increasingly anxious to go home. Refused all her morning medications from this RN, stating she would not take any medications from the hospital, that she wanted to take her own at home. Patient had put on her own gown and had made her way to the door of her room with UX DEVELOPER standby. Patient singing same phrase repeatedly and would not go back to sit in her chair in her room. Float RN in to sit with patient at doorway (see her note). Patient eventually fell asleep in her chair with chair alarm in place. Original Note: Upon AM assessment this morning at approx. 8am, patient sitting up in her looking out the window. Alert to self, her birthday, and todays date. Denies pain, or shortness of breath. States she has urinated but did not have any BM. Patient would like to put on her own gown, she is mentioning frequently that she would like to go home today, stating she lives at the facility [facility] across the street. Chair alarm in place, call light within reach. Continue to monitor.
[2020-10-08] MEDS: LORazepam 2 MG/ML INJ 0.5 MG IV (13:33)
--- NOTE | 2020-10-08 14:13 | PC.NURSE ---
Assistance called overhead paging to main nurses station, as patient had made her way with LIVE OUT NANNY up to the front end web developer and was attempting to leave. Patient was agitated and refusing to sit down or go back to room. Yolanda Ashford and other RN's and LIVE OUT NANNY's on team up to see and assist with patient. Float RN was able to convince patient to get back to room to rest, IV lorazepam given as ordered. Float RN then continued to sit 1:1 with patient to monitor for safety.
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
[2020-10-08 22:27] LABS: Appearance Urine UA CLOUDY; Bilirubin Urine UA NEGATIVE (NEGATIVE); Color Urine UA YELLOW; Glucose Urine UA NEGATIVE (Negative); Ketones Urine UA 1+ (NEGATIVE); Leukocyte Esterase Urine UA TRACE (NEGATIVE); Nitrite Urine UA NEGATIVE (Negative); Occult Blood Urine UA TRACE-LYSED (Negative); Protein Urine UA NEGATIVE (Negative); Specific Gravity Urine UA 1.025 (1.000-1.035); Urobilinogen Urine UA 0.2 E.U./dL (0.2)
[2020-10-08 22:28] LABS: Amorphous Sediment Urine 3+; Bacteria Urine Few (2-10); Hyaline Casts Urine 0-1/LPF; RBC Urine 0-1/HPF (0-5/HPF); Squamous Epithelial Cell Urine 0-1 /HPF (0-5/HPF); WBC Urine 0-1/HPF (0-5/HPF); pH Urine UA 5.5 (4.5-8.0)
[2020-10-08 22:33] LABS: Culture Indicated Urine Specimen Cultured
[2020-10-09] VITALS: BP 132/60; PULSE 58; RESP 16; TEMP 36.6; O2SAT 93
[2020-10-09] MEDS: HALOPERIDOL 5 MG/ML VIAL 2 MG IV ×2 (02:11→20:10)
[2020-10-09] MEDS: SODIUM CHLORIDE 0.9% FLUSH 10 ML IV ×2 (02:11→20:57)
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
[2020-10-09 05:00] VITALS: BP 148/77; PULSE 83; RESP 17; TEMP 36.3; O2SAT 96
[2020-10-09 07:45] VITALS: BP 133/74; PULSE 78; RESP 20; TEMP 36.7; O2SAT 97
--- NOTE | 2020-10-09 09:09 | PC.NURSE ---
Addendum entered by Selene Burnham R.N. 10/09/20 11:04: Patient is back in chair and napping. She only ate bites at breakfast. She allowed the teasel gig operator to change her to a gown and her brief was changed. She is calm and quiet at this time. Original Note: Assess- Patient compliant this am, able to get a physical assessment done. She is now upset because Ni is not showing up. Patient was standing in the door way and now sitting back in her chair. She wants to go home. 0945- Patient is now sitting in her chair, she has been incontinent in her brief but she will not let us help her to the bathroom or change her. Will re approach patient soon.
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
[2020-10-09 16:01] VITALS: BP 161/97; PULSE 92; RESP 17; TEMP 36.8; O2SAT 95
[2020-10-09] MEDS: LORazepam 0.5 MG TABLET PO (17:19)
[2020-10-09] MEDS: QUETIAPINE 25 MG TABLET 100 MG PO (20:47)
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
[2020-10-10 06:03] VITALS: RESP 18
--- NOTE | 2020-10-10 06:08 | PC.NURSE ---
Addendum entered by Fatmata Bird CNA 10/10/20 06:48: Was able to retrieve wrist call light and clean it, placed it on the self above the glove dispenser. Original Note: Patient ambulated to bathroom and back to her chair well and required little assistance, only preparing the room. Patient wanted water, but refused to let staff get it for her from the tap, even when she was shown that it was rinsed, and could see that staff was not tampering with the water. Patient took the cup and washed it three times with soap and water, before drinking approximately 50cc of water. Patient refused offered food, and threw away her bracelet call light from the assisted living facility into the trash and did not allow staff to retrieve.
[2020-10-10] MEDS: ASPIRIN 81 MG CHEW TAB PO (10:28)
[2020-10-10] MEDS: SODIUM CHLORIDE 0.9% FLUSH 10 ML IV (10:33)
--- NOTE | 2020-10-10 11:20 | PC.NURSE ---
Addendum entered by Viv Dickinson R.N. 10/10/20 14:43: pt PIV removed and tolerated well. All personal belongings, including call light bracelet and beaded bracelet in patient belonging bag. This nurse remained 1:1 with patient all shift. Addendum entered by Viv Dickinson R.N. 10/10/20 14:17: called and gave report to nurse Fatmata at [facility]. No questions or concerns. Addendum entered by Viv Dickinson R.N. 10/10/20 13:46: pt declined shower because she said she was going home today. I encouraged a quick bath in the chair, pt agreed. pt did decline soap d/t a topical allergy. pt helped perform bath and asked to clean under her breast by her self. pt was also very private and would not take off gown so we kept a blanket over her during the bath and only exposed her extremities. Gown was changed. Tracey-area was not cleaned at this time as pt stated she would clean that area when she goes to the BR next. pt ate a couple bites of her lunch and stated that she wasn't very hungry since she ate a big breakfast. pt asked if I would throw her bracelet away and when I confirmed that she wanted to throw it away she changed her mind and asked me to place it on the sink counter (the bracelet is by the sink currently). pt resting in chair with legs elevated intermittently. Agreed to take AM Seroquel dose at [address] Nolasco conversation. Denying pain and pleasant. Original Note: AM Shift note. pt AOx3, poor historian, and will answer some questions incorrectly (like when I asked pt if she has been passing gas and she responded with I don't normally cough). pt up SBA to BR and repositions IND in chair. Tracey-care and breif change at start of shift. Washed face, brushed teeth and had a BM before breakfast. pt ate all her breakfast this AM. Pleasant and giving thanks often. Alarm bracelet is on top of closet still (per previous shifts). pt wearing personal shoes. Denying pain and choosing which medications she would like to take, Aspirin and NS flush, and declined her Seroquel, docusate, and Lovenox. PIV right FA flushing.
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
[2020-10-10] MEDS: QUETIAPINE 25 MG TABLET 100 MG PO (13:38)
--- NOTE | 2020-10-10 13:40 | PC.NURSE ---
Dr. Nolasco call. Dr. Nolasco called to discuss concerns for patient returning home, mostly d/t the patient refusing Seroquel. Ask me to encourage pt to take her Seroquel or Ativan before transfer. I agreed to talk to the patient and stated that the patient was oriented and making her own decisions this AM during medication pass. Dr. Nolasco also mentioned that the pt will not be going back to her original room and the change may be disruptive but that it was for the pt's safety.
--- NOTE | 2020-10-10 14:38 | CM.DPNOTE ---
DC Note This PICKLER HELPER and CM Edda Denissesherri Brysonchiquita met yesterday morning w/two investigators from the [facility]. They were in an interview process w/staff at [facility] before coming in to [facility] to speak with us, and they were scheduled to return to [facility] after our visit. They were appreciative for information and advised that a wet mount specimen collection needed to be done and results faxed to [facility] before patient would be considered safe to return to her home. this did not require a COMMERCIAL LINES UNDERWRITER. MELA Morton completed the wet mount specimen collection yesterday afternoon w/ORDERLY at bedside, patient was agreeable and remained calm and cooperative throughout this process...specimen was sent to the lab, results were back 4.08.30 at 1500, this PICKLER HELPER left message for Isa and lab work had been electronically sent to PCP, DARELL Darnell. This morning, faxed completed lab results that indicated the following: occasional WBC seen, no clue cells, no yeast, no trichomonas Patient doing very well today, calm and cooperative, in good spirits. Spoke w/Isa at [facility] throughout the day, faxed completed DC ppk and signed med list to [facility]. MELA Avilez completed bedside assessment w/patient and later transport arranged for [id number] Patient aware and agreeable to returning home. Staff updated w/p/u information Plan: DC back to [facility] via facility [facility]
--- NOTE | 2020-10-12 10:23 | PC.NURSE ---
spoke w/ Fatmata Meyers from [employer]. Requested to speak with Jeanine PLAZA who is not present at this time. Gave contact information for Estella Marsh (SANE examiner) and Karlie Chowdhury, director of care management. Fatmata's call back number is [phone].
--- NOTE | 2020-10-12 11:37 | PC.NURSE ---
I returned a call back to [employer] agency and spoke with Fatmata Meyers. Fatmata asked if I had any other information regarding Perri Gaytan and the report that was made. I added that while Perri Gaytan was in my care she was alert and oriented. When I asked Perri Gaytan who she was and her birthday she replied with Perri Gaytan 1940. When I asked Perri Gaytan what month and year it was she answered September 2020. When I asked Perri Gaytan where she was currently at she replied a hospital across from where I live. I answered all her questions and told that I would be available if needed.
== END 2020-10-10 14:50 ==
LOC: ED 10-08 01:21 → AC 10-08 01:22
PROVIDERS: Emergency Medicine; Admitting Provider Nurse Practitioner Family; Emergency Provider Emergency Medicine; PCP Nurse Practitioner Family; Referring Provider Emergency Medicine; Visit Provider Nurse Practitioner Family
DX: S30.814A Abrasion of vagina and vulva, initial encounter (principal); F03.91 Unspecified dementia, unspecified severity, with behavioral disturbance; E78.5 Hyperlipidemia, unspecified; Z20.822 Contact with and (suspected) exposure to COVID-19
CPT/HCPCS: 36415; 51798; 71045; 80053; 80305; 81001; 83605; 83690; 84145; 85025; 85610; 85730; 87040; 87086; 87210; 87635; 93005; 96365; 96375; 96376; 99285; G0378; J1630; J2060

== ENCOUNTER 2020-10-20 11:25 | Emergency (ER) | payer OTHER, MEDICAID, SELFPAY ==
[2020-10-20] VITALS (34 sets, daily range): BP systolic 95–150; BP diastolic 52–77; PULSE 64–94; RESP 16–20; TEMP 36.9; O2SAT 94–99
--- NOTE | 2020-10-20 11:28 | DI.CT.S_ITS ---
PROCEDURE: CT HEAD/BRAIN WO CON INDICATIONS: altered mental status TECHNIQUE: Noncontrast 4.5 mm thick angled axial sections acquired from the foramen magnum to the vertex, with coronal and sagittal reformats. For radiation dose reduction, the following was used: automated exposure control, adjustment of mA and/or kV according to patient size. COMPARISON: [facility], CT, HEAD WITHOUT CONTRAST, 08/24/2016, 11:09. [facility], CT, CT HEAD/BRAIN WO CON, 09/17/2020, 14:45. FINDINGS: Image quality: Excellent. CSF spaces: Basal cisterns are patent. No extra-axial fluid collections. The ventricles are symmetric in size and shape. Brain: No intracranial bleeds or masses. There is cerebral volume loss for age, with resultant ventricular and sulcal prominence. There are periventricular and deep white matter chronic small vessel ischemic changes. Areas of focal volume loss and encephalomalacia can be seen, which are worst involving the occipital lobes, left worse than right. These findings are similar to the prior examination dated 09/17/2020. Bilateral basal ganglia lacunar infarctions are also seen. There is intracranial internal carotid artery atherosclerosis. Skull and face: Calvarium and visualized facial bones appear intact, without suspicious lesions. Sinuses: Visualized sinuses and mastoids are clear. IMPRESSION: No bashir, acute intracranial abnormality can be seen. No acute intracranial hemorrhage is seen. Areas of prior focal infarction are seen, which are similar to the prior examination. If there is strong clinical suspicion for an acute stroke, please consider an MRI for further evaluation, as it is more sensitive (assuming that there is no contraindication to MRI). Dictated by: Tigre Senior M.D. on 10/20/2020 at 11:44 Approved by: Tigre Senior M.D. on 10/20/2020 at 11:45
--- NOTE | 2020-10-20 12:06 | ED_ITS ---
HPI - Altered Mental Status <Dustin Villegas DO - Last Filed: 10/22/20 16:06> General Chief Complaint: Altered Mental Status Stated Complaint: Altered mental status Time Seen by Provider: 10/20/20 11:28 Source: patient, EMS and other Mode of arrival: EMS Limitations: altered mental status History of Present Illness HPI narrative: 79-year-old femaleNonsmoker with recent hospitalization presents by EMS for evaluation of continued confusion and altered mental status. The patient has been increasingly confused and refusing her medications. She apparently has made comments to the staff and her primary care provider that she is preparing to have a wedding with some unknown person and apparently is convinced that he is here waiting for her in the emergency department. She has had no traumas or injuries. She has had no fever or chills. She has no suggestion of recent chest pain, shortness of breath, nausea, vomiting or diarrhea. She is sent here largely to get a mental health evaluation by social Work and consider the possibility of referral to geriatric psych facility MD complaint: altered mental status and confusion Onset (ago): week(s) Timing confirmed by: caregiver Severity: moderate Related Data Home Medications Medication Instructions Recorded Confirmed acetaminophen 650 mg PO Q4H PRN 09/17/20 10/20/20 docusate sodium 100 mg PO DAILY PRN 09/17/20 10/20/20 fluticasone propionate [Allergy 1 spray INTRANASAL DAILY PRN 09/17/20 10/20/20 Relief (fluticasone)] nystatin 1 applic TOPICAL BID 10/08/20 10/20/20 C Valentina/Di/Leopoldo 0.5/12/5/0.5mg/Gm 2 ml TOPICAL Q2HR PRN 10/20/20 10/20/20 haloperidol lactate 1 mg PO BID 10/20/20 10/20/20 lorazepam 1 mg PO Q4HR PRN 10/20/20 10/20/20 phenyleph-shark vao-zchw-uxp 1 applic GA BID PRN 10/20/20 10/20/20 [Preparation H] Allergies Allergy/AdvReac Type Severity Reaction Status Date / Time Penicillins [PENICILLINS] Allergy Unknown Verified 10/20/20 16:52 Review of Systems <Dustin Villegas DO - Last Filed: 10/22/20 16:06> Constitutional Constitutional: Denies chills, Denies fatigue, Denies fever(s), Denies frequent falls, Denies lethargy and Denies weakness Eyes Eyes: Denies change in vision, Denies eye discharge, Denies irritation and Denies loss of vision ENT Ears, Nose, Mouth, and Throat: Denies change in voice, Denies dizziness, Denies neck pain, Denies sore throat and Denies throat swelling Cardiovascular Cardiovascular: Denies chest pain, Denies irregular heart rhythm, Denies lightheadedness, Denies palpitations, Denies dyspnea, Denies dyspnea on exertion and Denies orthopnea Respiratory Respiratory: Denies cough, Denies dyspnea, Denies dyspnea on exertion and Denies wheezing Gastrointestinal Gastrointestinal: Denies abdominal pain, Denies change in bowel habits, Denies diarrhea, Denies nausea and Denies vomiting Musculoskeletal Musculoskeletal: Denies neck pain and Denies numbness Integumentary/Breasts Skin/Breast: Denies pruritus, Denies erythema, Denies rash and Denies wounds Neurologic Neurologic: Denies behavioral changes, Denies confusion, Denies dizziness, Denies frequent falls, Denies loss of vision, Denies numbness and Denies weakness Psychiatric Psychiatric: Denies anxiety, Denies behavioral changes, Denies confusion, Denies depression, Denies homicidal ideation and Denies suicidal ideation Endocrine Endocrine: Denies fatigue, Denies flushing and Denies palpitations Hematologic/Lymphatic Hematologic/Lymphatic: Denies easy bruising Allergic/Immunologic Allergic/Immunologic: Denies urticaria, Denies throat swelling and Denies wheezing Patient History <Dustin Villegas DO - Last Filed: 10/22/20 16:06> Medical History Dementia HLD (hyperlipidemia) Social History household members: other Smoking Status: Never smoker alcohol intake: former Smoking Status: Never smoker Substance Use Type: does not use Exam <Dustin Villegas DO - Last Filed: 10/22/20 16:06> Narrative Exam Narrative: GENERAL: [79] year old patient appears stated age. Well- nourished, well-developed patient, in mild distress. Pleasantly confused. GCS 14 HEAD: Atraumatic. Normocephalic. EYES: Pupils equal round and reactive. Extraocular motions intact. No scleral icterus. No injection or drainage. ENT: Nose without bleeding, purulent drainage. Throat without erythema, tonsillar hypertrophy or exudate. Airway patent. NECK: Trachea midline. Non tender CARDIOVASCULAR: Regular rate and rhythm without murmurs, gallops, or rubs. RESPIRATORY: Clear to auscultation. Breath sounds equal bilaterally. No wheezes, rales, or rhonchi. GASTROINTESTINAL: Abdomen soft, non-tender, nondistended. EXTREMITIES: No edema or joint tenderness. BACK: Nontender without deformity or crepitance. No flank tenderness. NEURO: Cranial nerves 2-12 grossly intact, moving all 4 extremities with equal strength, sensation and coordination.. SKIN: No rash or erythema of visible areas Initial Vital Signs Initial Vital Signs: Vital Signs Temperature 98.5 F 10/20/20 11:25 Pulse Rate 85 10/20/20 11:25 Respiratory Rate 20 10/20/20 11:25 Blood Pressure 149/74 H 10/20/20 11:25 Pulse Oximetry 99 10/20/20 11:25 <Maik Jones DO - Last Filed: 10/21/20 06:17> Initial Vital Signs Initial Vital Signs: Vital Signs Temperature 98.5 F 10/20/20 11:25 Pulse Rate 85 10/20/20 11:25 Respiratory Rate 20 10/20/20 11:25 Blood Pressure 149/74 H 10/20/20 11:25 Pulse Oximetry 99 10/20/20 11:25 Course <Dustin Villegas DO - Last Filed: 10/22/20 16:06> Course Course Narrative: Patient is again alert and oriented but certainly confused about some items such as whether not there is someone waiting for her here that she can . She is singing for much of her visit and largely pleasant with some episodes of confusion. Social work has seen and evaluated the patient and there is request for DCR. DCR is now seen and evaluated the patient and state that she is not detainable. Orders Ordered: Discontinued Medications Haloperidol (Haloperidol 1 Mg Tablet) 1 mg PO NOW ONE Stop: 10/20/20 21:37 Last Admin: 10/20/20 22:48 Dose: Not Given Documented by: IMANI Vital Signs Vital signs: Vital Signs - 8 hr 10/20/20 23:29 10/21/20 04:07 Pulse Rate 84 80 Respiratory Rate 20 18 Blood Pressure 111/61 146/66 H Pulse Oximetry 98 98 <Maik Jones DO - Last Filed: 10/21/20 06:17> Orders Ordered: Discontinued Medications Haloperidol (Haloperidol 1 Mg Tablet) 1 mg PO NOW ONE Stop: 10/20/20 21:37 Last Admin: 10/20/20 22:48 Dose: Not Given Documented by: IMANI Vital Signs Vital signs: Vital Signs - 8 hr 10/20/20 23:29 10/21/20 04:07 Pulse Rate 84 80 Respiratory Rate 20 18 Blood Pressure 111/61 146/66 H Pulse Oximetry 98 98 MDM - Altered Mental Status <Dustin Villegas DO - Last Filed: 10/22/20 16:06> Lab Data Result diagrams: 10/20/20 12:24 10/20/20 12:24 Labs: Lab Results 10/20/20 10/20/20 10/20/20 Range/Units 12:24 12:24 12:24 WBC 9.1 (4.5-11.0) X10^3/uL RBC 4.80 (4.0-5.2) X10^6/uL Hgb 14.4 (12.0-16.0) g/dL Hct 43.0 (36-46) % MCV 89.6 (80-100) fL MCH 29.9 (26-34) PG MCHC 33.4 (30-36) % RDW 12.9 (11.6-14.8) % Plt Count 271 (150-400) X10^3/uL Neut % (Auto) 79.1 H (50-75) % Lymph % (Auto) 12.6 L (25-40) % [place] % (Auto) 7.1 (3-14) % Eos % (Auto) 0.6 L (2-4) % Baso % (Auto) 0.6 (0-2) % Neut # (Auto) 7200 H (4494-9103) /uL Lymph # (Auto) 1100 (5617-1122) /uL [place] # (Auto) 600 (0-900) /uL Eos # (Auto) 100 (0-450) /uL Baso # (Auto) 100 (0-100) /uL Sodium 139 (137-145) mmol/L Potassium 3.6 (3.4-5.1) mmol/L Chloride 105 (98-107) mmol/L Carbon Dioxide 26 (22-32) mmol/L BUN 20 H (7-17) mg/dL Creatinine 0.68 (0.52-1.04) mg/dL Estimated GFR > 60.0 (>60) mL/min BUN/Creatinine Ratio 29.4 H (6-22) Glucose 102 (80-110) mg/dL Calcium 9.8 (8.4-10.2) mg/dL Total Bilirubin 0.5 (0.2-1.3) mg/dL AST 31 (14-36) IU/L ALT 16 (<35) IU/L Alkaline Phosphatase 90 (38-126) U/L Total Protein 7.2 (6.3-8.2) g/dL Albumin 4.0 (3.5-5.0) g/dL Globulin 3.2 (1.7-4.1) g/dL Albumin/Globulin Ratio 1.3 (1.0-2.8) TSH 1.41 (0.47-4.68) uIU/mL U Opiates 300ng/mL cut (Negative) Ur Oxycodone Screen (Negative) Urine Methadone Screen (Negative) Ur Barbiturates Screen (Negative) U Tricyclic Antidepress (Negative) Ur Phencyclidine Scrn (Negative) Ur Amphetamines Screen (Negative) U Methamphetamines Scrn (Negative) Ur MDMA Scrn (Ecstasy) (Negative) U Benzodiazepines Scrn (Negative) Urine Cocaine Screen (Negative) U Marijuana (THC) Screen (Negative) Ethyl Alcohol < 10 ( - 10) mg/dL SARS-CoV-2 (PCR) (Negative) 10/20/20 10/20/20 Range/Units 12:39 15:00 WBC (4.5-11.0) X10^3/uL RBC (4.0-5.2) X10^6/uL Hgb (12.0-16.0) g/dL Hct (36-46) % MCV (80-100) fL MCH (26-34) PG MCHC (30-36) % RDW (11.6-14.8) % Plt Count (150-400) X10^3/uL Neut % (Auto) (50-75) % Lymph % (Auto) (25-40) % [place] % (Auto) (3-14) % Eos % (Auto) (2-4) % Baso % (Auto) (0-2) % Neut # (Auto) (4406-6939) /uL Lymph # (Auto) (1482-6583) /uL [place] # (Auto) (0-900) /uL Eos # (Auto) (0-450) /uL Baso # (Auto) (0-100) /uL Sodium (137-145) mmol/L Potassium (3.4-5.1) mmol/L Chloride (98-107) mmol/L Carbon Dioxide (22-32) mmol/L BUN (7-17) mg/dL Creatinine (0.52-1.04) mg/dL Estimated GFR (>60) mL/min BUN/Creatinine Ratio (6-22) Glucose (80-110) mg/dL Calcium (8.4-10.2) mg/dL Total Bilirubin (0.2-1.3) mg/dL AST (14-36) IU/L ALT (<35) IU/L Alkaline Phosphatase (38-126) U/L Total Protein (6.3-8.2) g/dL Albumin (3.5-5.0) g/dL Globulin (1.7-4.1) g/dL Albumin/Globulin Ratio (1.0-2.8) TSH (0.47-4.68) uIU/mL U Opiates 300ng/mL cut Negative (Negative) Ur Oxycodone Screen Negative (Negative) Urine Methadone Screen Negative (Negative) Ur Barbiturates Screen Negative (Negative) U Tricyclic Antidepress Negative (Negative) Ur Phencyclidine Scrn Negative (Negative) Ur Amphetamines Screen Negative (Negative) U Methamphetamines Scrn Negative (Negative) Ur MDMA Scrn (Ecstasy) Negative (Negative) U Benzodiazepines Scrn Negative (Negative) Urine Cocaine Screen Negative (Negative) U Marijuana (THC) Screen Negative (Negative) Ethyl Alcohol ( - 10) mg/dL SARS-CoV-2 (PCR) Negative (Negative) Urine Dip Bedside Urine Glucose 100 mg/dl Bedside Urine Ketone +/- 5 Urine Specific [place] 1.030 Bedside Urine Occult Blood - Negative Bedside Urine pH 6 Bedside Urine Protein - Negative Bedside Urine Urobilinogen - Negative Bedside Urine Nitrite - Negative Bedside Urine Leukocytes - Negative Esterase Imaging Data CT scan - head: Radiologist's Impression: [facility] [place] [address] [id number] Scan ReportSigned Patient: Perri Gaytan RMR#: [id number]: 9Acct:[id number]/Sex: 79 / FDate of Service: 10/20/20Loc: EDAccession Number: [id number] Procedure: CT head/brain wo con Ordering Provider: Dustin Villegas D.O. PROCEDURE: CT HEAD/BRAIN WO CON INDICATIONS: altered mental status TECHNIQUE: Noncontrast 4.5 mm thick angled axial sections acquired from the foramen magnum to the vertex, with coronal and sagittal reformats. For radiation dose reduction, the following was used: automated exposure control, adjustment of mA and/or kV according to patient size. COMPARISON: [facility], CT, HEAD WITHOUT CONTRAST, 08/24/2016, 11:09. [facility], CT, CT HEAD/BRAIN WO CON, 09/17/2020, 14:45. FINDINGS: Image quality: Excellent. CSF spaces: Basal cisterns are patent. No extra-axial fluid collections. The ventricles are symmetric in size and shape. Brain: No intracranial bleeds or masses. There is cerebral volume loss for age, with resultant ventricular and sulcal prominence. There are periventricular and deep white matter chronic small vessel ischemic changes. Areas of focal volume loss and encephalomalacia can be seen, which are worst involving the occipital lobes, left worse than right. These findings are similar to the prior examination dated 09/17/2020. Bilateral basal ganglia lacunar infarctions are also seen. There is intracranial internal carotid artery atherosclerosis. Skull and face: Calvarium and visualized facial bones appear intact, without suspicious lesions. Sinuses: Visualized sinuses and mastoids are clear. IMPRESSION: No bashir, acute intracranial abnormality can be seen. No acute intracranial hemorrhage is seen. Areas of prior focal infarction are seen, which are similar to the prior examination. If there is strong clinical suspicion for an acute stroke, please consider an MRI for further evaluation, as it is more sensitive (assuming that there is no contraindication to MRI). Dictated by: Tigre Senior M.D. on 10/20/2020 at 11:44 Approved by: Tigre Senior M.D. on 10/20/2020 at 11:45 <Maik Jones DO - Last Filed: 10/21/20 06:17> Lab Data Labs: Lab Results 10/20/20 10/20/20 10/20/20 Range/Units 12:24 12:24 12:24 WBC 9.1 (4.5-11.0) X10^3/uL RBC 4.80 (4.0-5.2) X10^6/uL Hgb 14.4 (12.0-16.0) g/dL Hct 43.0 (36-46) % MCV 89.6 (80-100) fL MCH 29.9 (26-34) PG MCHC 33.4 (30-36) % RDW 12.9 (11.6-14.8) % Plt Count 271 (150-400) X10^3/uL Neut % (Auto) 79.1 H (50-75) % Lymph % (Auto) 12.6 L (25-40) % [place] % (Auto) 7.1 (3-14) % Eos % (Auto) 0.6 L (2-4) % Baso % (Auto) 0.6 (0-2) % Neut # (Auto) 7200 H (1929-1711) /uL Lymph # (Auto) 1100 (9011-1089) /uL [place] # (Auto) 600 (0-900) /uL Eos # (Auto) 100 (0-450) /uL Baso # (Auto) 100 (0-100) /uL Sodium 139 (137-145) mmol/L Potassium 3.6 (3.4-5.1) mmol/L Chloride 105 (98-107) mmol/L Carbon Dioxide 26 (22-32) mmol/L BUN 20 H (7-17) mg/dL Creatinine 0.68 (0.52-1.04) mg/dL Estimated GFR > 60.0 (>60) mL/min BUN/Creatinine Ratio 29.4 H (6-22) Glucose 102 (80-110) mg/dL Calcium 9.8 (8.4-10.2) mg/dL Total Bilirubin 0.5 (0.2-1.3) mg/dL AST 31 (14-36) IU/L ALT 16 (<35) IU/L Alkaline Phosphatase 90 (38-126) U/L Total Protein 7.2 (6.3-8.2) g/dL Albumin 4.0 (3.5-5.0) g/dL Globulin 3.2 (1.7-4.1) g/dL Albumin/Globulin Ratio 1.3 (1.0-2.8) TSH 1.41 (0.47-4.68) uIU/mL U Opiates 300ng/mL cut (Negative) Ur Oxycodone Screen (Negative) Urine Methadone Screen (Negative) Ur Barbiturates Screen (Negative) U Tricyclic Antidepress (Negative) Ur Phencyclidine Scrn (Negative) Ur Amphetamines Screen (Negative) U Methamphetamines Scrn (Negative) Ur MDMA Scrn (Ecstasy) (Negative) U Benzodiazepines Scrn (Negative) Urine Cocaine Screen (Negative) U Marijuana (THC) Screen (Negative) Ethyl Alcohol < 10 ( - 10) mg/dL SARS-CoV-2 (PCR) (Negative) 10/20/20 10/20/20 Range/Units 12:39 15:00 WBC (4.5-11.0) X10^3/uL RBC (4.0-5.2) X10^6/uL Hgb (12.0-16.0) g/dL Hct (36-46) % MCV (80-100) fL MCH (26-34) PG MCHC (30-36) % RDW (11.6-14.8) % Plt Count (150-400) X10^3/uL Neut % (Auto) (50-75) % Lymph % (Auto) (25-40) % [place] % (Auto) (3-14) % Eos % (Auto) (2-4) % Baso % (Auto) (0-2) % Neut # (Auto) (3408-0107) /uL Lymph # (Auto) (8859-7685) /uL [place] # (Auto) (0-900) /uL Eos # (Auto) (0-450) /uL Baso # (Auto) (0-100) /uL Sodium (137-145) mmol/L Potassium (3.4-5.1) mmol/L Chloride (98-107) mmol/L Carbon Dioxide (22-32) mmol/L BUN (7-17) mg/dL Creatinine (0.52-1.04) mg/dL Estimated GFR (>60) mL/min BUN/Creatinine Ratio (6-22) Glucose (80-110) mg/dL Calcium (8.4-10.2) mg/dL Total Bilirubin (0.2-1.3) mg/dL AST (14-36) IU/L ALT (<35) IU/L Alkaline Phosphatase (38-126) U/L Total Protein (6.3-8.2) g/dL Albumin (3.5-5.0) g/dL Globulin (1.7-4.1) g/dL Albumin/Globulin Ratio (1.0-2.8) TSH (0.47-4.68) uIU/mL U Opiates 300ng/mL cut Negative (Negative) Ur Oxycodone Screen Negative (Negative) Urine Methadone Screen Negative (Negative) Ur Barbiturates Screen Negative (Negative) U Tricyclic Antidepress Negative (Negative) Ur Phencyclidine Scrn Negative (Negative) Ur Amphetamines Screen Negative (Negative) U Methamphetamines Scrn Negative (Negative) Ur MDMA Scrn (Ecstasy) Negative (Negative) U Benzodiazepines Scrn Negative (Negative) Urine Cocaine Screen Negative (Negative) U Marijuana (THC) Screen Negative (Negative) Ethyl Alcohol ( - 10) mg/dL SARS-CoV-2 (PCR) Negative (Negative) Urine Dip Bedside Urine Glucose 100 mg/dl Bedside Urine Ketone +/- 5 Urine Specific [place] 1.030 Bedside Urine Occult Blood - Negative Bedside Urine pH 6 Bedside Urine Protein - Negative Bedside Urine Urobilinogen - Negative Bedside Urine Nitrite - Negative Bedside Urine Leukocytes - Negative Esterase MDM Narrative Medical decision making narrative: Dr jones: Received turned over. Reviewed patient's history and physical. Patient was seen by DCR who stated that the patient is not detainable. No emergent/urgent condition that requires admission to hospital. Social Work has been involved. I did discuss the case with the nurse practitioner at the patient's living facility. We did discuss their concerns about her behavior in her safety. Unfortunately there is not much more we can do out of the emergency department. Feel patient would be best off back at a location where she is familiar. We do not disagree that she would benefit from a geriatric psychiatric facility however we are not going to be able to get that established during this visit. Nurse practitioner at the living facility understands this. Facility will come pick her up in the morning. Discharge Plan Departure Patient Disposition: Home Clinical Impression: Behavioral disorder Activity Restrictions/Additional Instructions: Perri can continue all of her medications as directed. I recommend that the medical providers at the facility continue to work on finding geriatric psych facility. Prescriptions: No Action acetaminophen 325 mg Tablet 650 mg PO Q4H PRN (Reason: Fever) RF: 0 docusate sodium 100 mg Capsule 100 mg PO DAILY PRN (Reason: Constipation) RF: 0 fluticasone propionate [Allergy Relief (fluticasone)] 50 mcg/actuation [place],Suspension 1 spray INTRANASAL DAILY PRN (Reason: Congestion) RF: 0 nystatin 100,000 unit/gram cream 1 applic TOPICAL BID RF: 0 lorazepam 2 mg/mL concentrate 1 mg PO Q4HR PRN (Reason: anxiety / agitation) RF: 0 haloperidol lactate 2 mg/mL concentrate 1 mg PO BID RF: 0 Preparation H Cream 1 applic GA BID PRN (Reason: hemroids) RF: 0 C Valentina/Di/Leopoldo 0.5/12/5/0.5mg/Gm 2 ml topical Q2HR PRN (Reason: Agitation) RF: 0 Referrals: Ayanna Darnell ARNP [Primary Care Provider] -
[2020-10-20 12:40] LABS: Add Manual Diff / Slide Review NO; Basophils Absolute Auto 100 /uL (0-100); Basophils Percent Auto 0.6 % (0-2); Eosinophils Absolute Auto 100 /uL (0-450); Eosinophils Percent Auto 0.6 % (2-4); Hemoglobin 14.4 g/dL (12.0-16.0); Lymphocytes Absolute Auto 1100 /uL (1100-4500); Lymphocytes Percent Auto 12.6 % (25-40); Mean Corpuscular HGB Conc 33.4 % (30-36); Mean Corpuscular Hemoglobin 29.9 PG (26-34); Mean Corpuscular Volume 89.6 fL (80-100); Monocytes Absolute Auto 600 /uL (0-900); Monocytes Percent Auto 7.1 % (3-14); Neutrophils Absolute Auto 7200 /uL (1500-7000); Neutrophils Percent Auto 79.1 % (50-75); Platelet Count 271 X10^3/uL (150-400); Red Cell Distribution Width 12.9 % (11.6-14.8); White Blood Cell Count 9.1 X10^3/uL (4.5-11.0)
[2020-10-20 13:06] LABS: Alanine Aminotransferase 16 IU/L (<35); Albumin Globulin Ratio 1.3 (1.0-2.8); Alkaline Phosphatase 90 U/L (38-126); Aspartate Aminotransferase 31 IU/L (14-36); BUN Creatinine Ratio 29.4 (6-22); Bilirubin Total 0.5 mg/dL (0.2-1.3); Blood Urea Nitrogen 20 mg/dL (7-17); Calcium 9.8 mg/dL (8.4-10.2); Carbon Dioxide 26 mmol/L (22-32); Chloride 105 mmol/L (98-107); Estimated Glomerular Filt Rate > 60.0 mL/min (>60); Ethanol (ETOH) < 10 mg/dL; Globulin 3.2 g/dL (1.7-4.1); Glucose 102 mg/dL (80-110); HEMOLYSIS 31 (0-50); Potassium 3.6 mmol/L (3.4-5.1); Sodium 139 mmol/L (137-145); Total Protein 7.2 g/dL (6.3-8.2)
[2020-10-20 13:50] LABS: Thyroid Stimulating Hormone 1.41 uIU/mL (0.47-4.68)
[2020-10-20 14:09] LABS: COVID19 - ADMIT (NP swab/PCR) Negative (Negative)
[2020-10-20 15:34] LABS: UR Morphine/Opiate cutoff 300 Negative (Negative); Ur Creatinine Normal (Normal); Ur Specific Gravity Normal (Normal); Urine Amphetamines Negative (Negative); Urine Barbiturates Negative (Negative); Urine Benzodiazepines Negative (Negative); Urine Cocaine Negative (Negative); Urine MDMA Negative (Negative); Urine Methadone Negative (Negative); Urine Methamphetamines Negative (Negative); Urine Oxycodone Negative (Negative); Urine Phencyclidine Negative (Negative); Urine Tetrahydrocannabinol Negative (Negative); Urine Tricyclic Antidepressant Negative (Negative); Urine pH Normal (Normal)
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
--- NOTE | 2020-10-20 17:39 | PC.NURSE ---
patient ordered and offered dinner. patient declined eating at this time. provider aware.
--- NOTE | 2020-10-20 22:30 | PC.NURSE ---
Assisted patient with elimination and hygiene of brushing teeth. Offered to assist patient with a shower but she declined. Offered a couple more times and she declined each time.
[2020-10-21 04:05] VITALS: BP 118/59; PULSE 57; RESP 16; O2SAT 96
[2020-10-21 04:07] VITALS: BP 146/66; PULSE 80; RESP 18; O2SAT 98
[2020-10-21 07:23] VITALS: BP 123/60; PULSE 81; RESP 16; TEMP 36.6; O2SAT 96
== END 2020-10-21 08:22 | disposition home or self-care (01) ==
PROVIDERS: Emergency Medicine; Emergency Provider Emergency Medicine; PCP Nurse Practitioner Family
DX: R41.82 Altered mental status, unspecified (principal)
CPT/HCPCS: 36415; 70450; 80053; 80305; 80320; 81003; 84443; 85025; 87635; 93005; 93010; 99284; C9803

== ENCOUNTER 2020-10-21 09:01 | Observation (INO) | payer OTHER, MEDICAID, SELFPAY ==
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
[2020-10-21 09:12] VITALS: BP 154/78; PULSE 84; RESP 16; O2SAT 95
--- NOTE | 2020-10-21 09:15 | PC.NURSE ---
pt refused to go home at [facility].
--- NOTE | 2020-10-21 12:22 | PC.NURSE ---
patient sitting up in bed working on a crossword puzzle. patient alert and very pleasant.
--- NOTE | 2020-10-21 12:43 | PC.NURSE ---
Pt attempting to get out of bed without calling and is a fall risk, requires frequent redirection from staff. sitter in place. SEO ENGINEER assisting w/ plan of care.
[2020-10-21 12:48] VITALS: BP 142/58; PULSE 74; O2SAT 98
--- NOTE | 2020-10-21 13:27 | PC.NURSE ---
Dr. Johnson at bedside.
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
--- NOTE | 2020-10-21 17:35 | PC.NURSE ---
Dr. Johnson at bedside speaking with patient.
[2020-10-21] MEDS: OLANZapine 2.5 MG TABLET PO (17:41)
--- NOTE | 2020-10-21 17:48 | PC.NURSE ---
After speaking with Dr. Johnson patient was willing to take the Zyprexa that was ordered. patient swallowed the Zyprexa without any problems. provider aware.
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
--- NOTE | 2020-10-21 18:04 | PC.NURSE ---
pt has been introduced to sitter. pt is calm and lying in bed. pt singing quietly.
--- NOTE | 2020-10-21 18:15 | PC.NURSE ---
patient lying in bed still stating that she does not want to go back to [place] she has to go back to [place].
--- NOTE | 2020-10-21 19:26 | PC.NURSE ---
pt calls me in to let me know that the new leader of [facility] would come help us. pt then states you could pull the fire alarm and stop that prem from being here, he is just trying to get a job
[2020-10-21 20:34] VITALS: BP 121/70; PULSE 84; RESP 16; O2SAT 98
--- NOTE | 2020-10-21 21:39 | PC.NURSE ---
patient given 118 mls of apple juice and 2 estrada crackers.
[2020-10-22 04:08] VITALS: BP 116/58; RESP 18; O2SAT 95
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
--- NOTE | 2020-10-22 11:07 | PC.NURSE ---
0900: received report on patient. resting in hospital bed at this time. eyes closed. on 1:1 observation.
--- NOTE | 2020-10-22 12:20 | PC.NURSE ---
pt resting in bed. eyes open talking to herself. was assisted to commode by RONDA Corbett
--- NOTE | 2020-10-22 13:23 | CM.SWNOTE ---
CURING OVEN TENDER Note CURING OVEN TENDER calls [facility] correctional casework specialist Maurene Soham (Ph. # [phone]) and leaves requesting return call regarding patient and the potential for change of placement or respite. crossing supervisor discuss patient with ED Director Maria Isabel. Maria Isabel states that [facility] Administrative staff will come today to meet with patient to assess if patients want to continue to reside at [facility] and if patient wishes to not return to [facility], she will be discharged from the facility. Maria Isabel reports that Jacob a gate supervisor of [facility] case picker will be dispatched to identify other placement options for patient. CURING OVEN TENDER calls Sfoía Sheikh with [facility] for [facility]. CURING OVEN TENDER leaves requesting return call. Sofía calls CURING OVEN TENDER and reports that Jacob Sepulveda is the gate supervisor of Emergency Transition team of [facility] case picker and Jacob has dispatched a correctional casework specialist for patient to seek placement. Sofía states that Jacob?s phone number is: [phone]. CURING OVEN TENDER meets with patient at bedside, Liana & Ni with [facility] and MELA Pitts. [facility] staff assesses patient and patient reports she does not want to return to [facility] in the [facility] unit. [facility] staff provides patient and CURING OVEN TENDER a copy of the [facility] discharge form. [facility] staff states they will update Jacob Sepulveda and provide CURING OVEN TENDER's phone number to Jacob. CURING OVEN TENDER calls Marleny GRIFFITH with [facility] (Ph. # [phone]), leaves requesting return call. Per ED Director Maria Isabel, patient to be admitted to at this time pending placement search. Plan: Patient will be admitted pending placement search, Emergency Transition team has been dispatched for placement search. CURING OVEN TENDER will assist with coordination while patient is in the ED. CURING OVEN TENDER will inform CAP CURING OVEN TENDER of upcoming admission. BC Palacios
--- NOTE | 2020-10-22 14:06 | CM.DPNOTE ---
Addendum entered by BC Ríos 10/22/20 14:51: In addition, DCR dispatched to ER 10.20.20, this TOWER HOIST OPERATOR has reviewed the completed form Briefing of Intervention Investigation Request and Outcome by ELISABETH James; summary of which is patient does not meet criteria to be detained against her will to a geriatric psych facility, states patient requires alternative dementia care unit placement and is agreeable to such. Original Note: DCP Note According to ED TOWER HOIST OPERATOR Tasha, patient now transferred to the acute care floor for placement efforts. Patient has met w/ [facility] crm administrator, facilitated by ER team, and patient refuses to return to [facility] the locked unit that has been identified as the only safe and secure option for patient at [facility]. Reviewed chart. Patient somewhat familiar to this TOWER HOIST OPERATOR from prior hospitalization. Placed f/u call to Jacob Sepulveda, the city plant supervisor of Emergency Transition team, [facility] P#[phone]; according to Jacob, patient's case will be transferred to the Hospital Team today and the assigned worker will contact this TOWER HOIST OPERATOR team. According to Jacob, timeline of 1.) securing an assigned worker and 2.) scheduling an assessment to update daily rate are unknown at this time Placed f/u call to Marleny Amaya w/ [facility] Ph. # [phone], updated that patient now on the acute care floor; Marleny explains that patient was scheduled for a psych eval at former residence [facility] for Monday10.26.20 at 1000 w/maida and [facility] Geriatric psychology internDARELL Salomon. Marleny is not available to meet w/patient today or tomorrow but will plan to see patient Monday at this schedule time, 1000. Marleny further explained that [facility] has been involved w/patient's care for approx. 3 weeks and DARELL Lopez connected w/Dr Johnson yesterday... and she would likely be willing to connect for consultation further if Dr Johnson and/or his cohort felt this would be helpful. Psychiatric involvement appreciated and as Dr Johnson has indicated: May need to include legal/competency declaration in order to appropriately place the patient. Ni Justice, [facility], dropping off patient's personal items to acute care floor Rm #[id number]. This TOWER HOIST OPERATOR following closely BC Ríos
[2020-10-22 14:14] VITALS: BP 155/95; PULSE 81; RESP 19; TEMP 36.6; O2SAT 99
--- NOTE | 2020-10-22 14:15 | PC.NURSE ---
Director of [facility] in to speak to pt regarding coming back to the [facility] area [facility]. Pt adamantly refusing to go back to living in the [facility] area of the facility. Presented with documentation stating if refusing to come back to [facility], she will be DC'd from facility with access to ED Transition Team via APS who will help facilitate acceptance to a new assisted living facility. ED director MELA Nicolas and BC Cordova in room for witness of conversation and copy of documentation given to BC Cordova. Report Given to MELA Limon. Pt transported upstairs with Ayanna Ayala RN and 1:1 sitter.
[2020-10-22 14:38] VITALS: BMI 29.9
[2020-10-22 14:55] VITALS: BP 126/70; PULSE 89; RESP 18; TEMP 37.2; O2SAT 96; O2SAT 97
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
[2020-10-22] MEDS: OLANZapine 2.5 MG TABLET PO (18:45)
--- NOTE | 2020-10-22 21:34 | PC.NURSE ---
Evening Shift Note- Patient alert and oriented x3 with periods of confusion, paranoia, delusions, and auditory hallucinations. Patient able to answer questions appropriatly if able hear or read the question.. Patient very hard of hearing. Patient calm and cooperative for first half of shift. increased confusion and delusions noted after 1999. Patient became more emotionsal andmore difficult to redirect. Patient stated to this RN that people are poisoning my food so i havent eat. Patients weight is down since last admission. I told her I would cook her dinner for her. She asked for egg and toast and oatmeal. She ate 100% of dinner. Increased weakness noted. 2PA to BSC required. 2+ Edema noted to LLE. No complaints of pain or discomfort. Safety measures in place. bed alarm activated. This RN has been 1:1 with this patient this shift. Will continue to monitor.
[2020-10-22] MEDS: HALOPERIDOL 5 MG/ML VIAL 2 MG IM (22:48)
[2020-10-22 23:10] VITALS: BP 127/77; PULSE 95; RESP 16; TEMP 37; O2SAT 93
--- NOTE | 2020-10-22 23:30 | PC.NURSE ---
patient currently lying in bed and is cooperative with physical assessment although suspicious of staff. Would not answer orientation questions stating no one else is asking me that. When asked her name states Lee Ann Hernandez and points at her name band. Was able to tell me her birthdate. Is very [place] and speaks in very loud voice. Breath sounds CTA with RA sat of 93%. HRR. Denies nausea. BT present and abdomen is soft. Denies dysuria with urination; has been continent of urine. Reported weakness in bilateral LE with walking and generally uses walker and 1 assist. Is able to turn herself. Does have non-pitting edema to left foot. Fall risk score is high and bed alarm is on and has 1:1 staff observation/ assistance. Denies pain.
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
--- NOTE | 2020-10-23 08:29 | PC.NURSE ---
pt refused to eat breakfast, ask pt if she want something else pt refused and said the food here has poison.
--- NOTE | 2020-10-23 11:04 | PM.PN.1 ---
Subjective Subjective Date Patient Seen: 10/23/20 Time Patient Seen: 11:04 Interval history: Perri Gaytan is an 79 year old female with a past medical history of HLD and dementia admitted for difficulties with placement and continued adjustment of medications for her behavior. She remains delusional and slightly paranoid, thinking the food is poison and refusing to eat. She intermittently takes medications and is able to eat depending depending on if she trusts that particular staff member. Denies complaints today, sitting comfortably in her hospital chair. Exam Vital Signs (past 8 hours): Oxygen Delivery Method Room Air Oxygen Flow Rate 0 Narrative Exam Narrative: GENERAL APPEARANCE: Well developed, well nourished, in no acute distress. LUNGS: Auscultation of the lungs revealed no wheezes, rhonchi, or rales. CARDIOVASCULAR: There was a regular rate and rhythm without any murmurs, gallops, rubs. ABDOMEN: Soft, nontender, and nondistended MUSCULOSKELETAL: There was no tenderness or effusions noted. Muscle strength and tone were normal. EXTREMITIES: No cyanosis, clubbing or edema. NEUROLOGIC: Alert and oriented x 3 (person, place, time). Strength is +5/5 in the Upper Extremities and Lower Extremities Bilaterally. Sensation to touch was normal. Psych: calm, cooperative, currently. does hum and sing frequently, but does not seem distracted by internal stimuli. [facility] Medical History Dementia HLD (hyperlipidemia) Social History household members: other Smoking Status: Never smoker alcohol intake: former Assessment & Plan Assessment & Plan narrative: Perri Gaytan is an 79 year old female with a past medical history of HLD and dementia admitted for difficulties with placement, continued adjustment of medications for her behavior. 1. Dementia with reported behavioral disturbance - Patient was seen by Psychiatry, Dr. jane 10/21, in the emergency room. Patient was started on olanzapine 2.5 mg, will continue this. - DIRECTOR OF COMMUNITY CENTER consultation for placement. 2. HLD, chronic. - does not appear to be on home medications, listed as a chronic condition. No indication for lipid testing at this time. Dispo: Unclear, admitted under observation status, pending placement. DVT: Lovenox daily Code: Full per documentation, surrogate decision maker is not currently available as she is pending state guardianship. Quality VTE Deep Vein Thrombosis/Pulmonary Embolism Present on Admission: No
[2020-10-23 11:35] VITALS: BP 114/67; PULSE 77; RESP 20; TEMP 36.7; O2SAT 97
--- NOTE | 2020-10-23 12:15 | PC.NURSE ---
Pt received waking up this a.m. using fww with x1 min assist to Bathroom for large void, and cleaned of incontinence. Pt A&OX1, uncooperative with full neurological assessment, for date, year, place and situation. Refuses breakfast, and lunch this a.m. Refused medications. Patient stating she wants to go home because her is her doctor and he will take care of her. Pt drinking some water but refuses other drink options offered. Now requesting for PARAPROFESSIONAL AIDE TEACHER to leave the room, because she wants to visit with her alone. Believes he is in the room with her when no one actually is. Pt restful this a.m. no pain behaviors or agitation noted, except when encouraging patient to take medications or eat. Continuous monitoring. PARAPROFESSIONAL AIDE TEACHER remains in room for 1:1 supervision.
--- NOTE | 2020-10-23 13:17 | CM.DPNOTE ---
Addendum entered by BC Ríos 10/24/20 08:33: Listened to VM this AM, left yesterday afternoon after this COMMERCIAL LENDER left for the day; assigned Home and Community Services worker is Marianne Osman P# [phone]. Marianne will be available to discuss patient's case Monday AM at 0900. Original Note: DCP Note Placed call to Home and Community Services main number P# [phone], had to leave message requesting the name of assigned worker today in Hospital placement team. Following along closely. JW
--- NOTE | 2020-10-23 14:01 | PC.NURSE ---
pt refused lunch pt does not want anything to eat pt also refused going to the bathroom. 12;00 Pt asks me to leave the room because her is coming and they want to have private conversation. 14:17 Pt started to get agitated want to get out the room to find her . Offer to lay down on bed to get some rest pt refused to do so
--- NOTE | 2020-10-23 14:38 | PC.NURSE ---
14:38 pt agreed to use the bathroom but refused for help roberto care offer to lay down pt refused because her is coming to pick her up anytime pt stated. offer again to eat or snacks pt refused and stated food here has poison
[2020-10-23 15:34] VITALS: BP 114/69; PULSE 76; RESP 18; TEMP 36.4; O2SAT 96
[2020-10-23 16:00] VITALS: O2SAT 96
[2020-10-23] MEDS: OLANZapine 2.5 MG TABLET PO (16:58)
--- NOTE | 2020-10-23 16:59 | PC.NURSE ---
Addendum entered by Beatrice Greene R.N. 10/23/20 23:01: Resting quietly in bed without signs of distress or discomfort. Addendum entered by Beatrice Greene R.N. 10/23/20 21:49: Lying in bed talking out loud to self. Remains calm and responds to TOOL AND PRODUCTION PLANNER [place]. Pt reassured by Patricia. Oral fluids offered. Pt informs TOOL AND PRODUCTION PLANNER unable to sleep. Pt was offered sleeping aid which pt declined. Addendum entered by Beatrice Greene R.N. 10/23/20 19:00: Pt permits TOOL AND PRODUCTION PLANNER, Jelena, to use shower cap and perform pericare after toileting. Addendum entered by Beatrice Greene R.N. 10/23/20 18:43: Sitting quietly in wheelchair in room watching television. TOOL AND PRODUCTION PLANNER remains 1:1. Pt took zyprexa crushed in evening meal. Pt was self feeder with set up. Original Note: Pt is awake, alert, globally confused. Speaks loudly and is 1:1 with TOOL AND PRODUCTION PLANNER in room. Pt is calm and repeats self continually asking for spouse. Out of room in wheelchair with TOOL AND PRODUCTION PLANNER. Now taking evening meal. Feeding self with set up.
--- NOTE | 2020-10-24 03:59 | PC.NURSE ---
Patient has been asleep since start of shift but now awake. Pleasant and conversant and states she slept well. Cooperative with assessment. Is MAKAH. Breath sounds CTA. HRR. Denies nausea. BT present and abdomen is soft. Denies dysuria; wearing brief and has been incontinent but also voids on toilet; denies need to urinate at this time. Is able to move herself in bed. Reportedly has been up with walker and 1 assist. Denies pain. Fall risk score is high and bed alarm is activated. Has 1:1 staff observation/assistance due to behavioral concerns. When asked if staff could do anything to make her more comfortable states you can take me home. Tells staff she has a who is a doctor and can take care of her.
[2020-10-24 07:16] VITALS: BP 138/61; PULSE 68; RESP 20; TEMP 36.4; O2SAT 96
--- NOTE | 2020-10-24 09:16 | PM.PN.1 ---
Subjective Subjective Date Patient Seen: 10/24/20 Time Patient Seen: 09:46 Interval history: Perri Gaytan is an 79 year old female with a past medical history of HLD and dementia admitted for difficulties with placement and continued adjustment of medications for her behavior. Patient demonstrates no delusions or paranoia today. Patient's interaction is delightful she is resting comfortably in her chair looking through the window, patient denies any pain or discomfort, she is refusing to eat, drink, change her diaper, or take any medications. Became highly agitated when the nurses attempted to change her earlier. During exam pt demonstrates no pain or discomfort but refuses my offers of food. I did remove my white coat to go in and speak to the patient as I believe on last admission white coats agitate her. Rounds were to assess how to facilitate patient's placement in an appropriate facility and government guardianship, due to non decisional status related to dementia. As well as the patient is full code status as it relates to her unwillingness to eat, drink, or take medications. Exam Vital Signs (past 8 hours): - 10/24/20 07:16 Temperature 97.5 F L Pulse Rate 68 Respiratory Rate 20 Blood Pressure 138/61 Pulse Oximetry 96 Oxygen Delivery Method Room Air Oxygen Flow Rate 0 Narrative Exam Narrative: GENERAL APPEARANCE: Well developed, well nourished, in no acute distress. LUNGS: Auscultation of the lungs revealed no wheezes, rhonchi, or rales. CARDIOVASCULAR: There was a regular rate and rhythm without any murmurs, gallops, rubs. ABDOMEN: Soft, nontender, and nondistended MUSCULOSKELETAL: There was no tenderness or effusions noted. Muscle strength and tone were normal. EXTREMITIES: No cyanosis, clubbing or edema. NEUROLOGIC: Alert and oriented x 2 (person, place). Strength is +5/5 in the Upper Extremities and Lower Extremities Bilaterally. Sensation to touch was normal. Psych: calm, cooperative, currently. [facility] Medical History Dementia HLD (hyperlipidemia) Social History household members: other Smoking Status: Never smoker alcohol intake: former Assessment & Plan Assessment & Plan narrative: Assessment & Plan narrative: Perri Gaytan is an 79 year old female with a past medical history of HLD and dementia admitted for difficulties with placement, continued adjustment of medications for her behavior. 1. Dementia with reported behavioral disturbance - Patient was seen by Psychiatry, Dr. jane 10/21, in the emergency room. Patient was started on olanzapine 2.5 mg, will continue this though patient is currently refusing all medications. Based on consultation with care team during rounds will request Dr. jane consult to evaluate for non decisional in facilitation of state guardianship, and patient is scheduled for a [facility] psych evaluation Monday. The processes need to be started for state guardianship of the patient based on her non decisional mental status related to a diagnosis of dementia. Patient also continues to be a full code -recommended to the nursing staff to present to the ethics committee for evaluation due to the patient's continued refusal to eat drink or take medications. -will attempt to provide patient with Ativan to allow for diaper/ linen change. -patient continues with bedside sitter for safety protocol - SPORTS WRITER consultation for placement. 2. HLD, chronic. - does not appear to be on home medications, listed as a chronic condition. No indication for lipid testing at this time. -patient refusing all medications including Lovenox. Dispo: Unclear, admitted under observation status, pending placement. DVT: Lovenox daily Code: Full per documentation, surrogate decision maker is not currently available, we are attempting to begin facilitation of state guardianship. Quality VTE Deep Vein Thrombosis/Pulmonary Embolism Present on Admission: No
--- NOTE | 2020-10-24 12:30 | PC.NURSE ---
Pt became agitated, yelling at us that she heard her in the hallway and that we sent him away. She continuously attempted to wheel herself to the elevator. Pt was informed that her did not come here and that we didn't send him away. She then started loudly singing Cyndy the beautiful, and was wheeled back to her room. She was given a pen and paper, then her agitation seemed to decrease. She declined food/snacks and beverages.
[2020-10-24 15:51] VITALS: BP 139/96; PULSE 97; RESP 20; TEMP 36.3; O2SAT 97
[2020-10-24 16:36] VITALS: O2SAT 97
[2020-10-24] MEDS: OLANZapine 2.5 MG TABLET PO (19:17)
--- NOTE | 2020-10-24 22:32 | PC.NURSE ---
pt watched TV and did some drawing today. she ate 1 cup of yogurt and drank 300cc of water. she also took her PM meds. pt did express of wanting to go home today. HEAD OF SALES was able to change her brief. pt incontinent. 1:1.
--- NOTE | 2020-10-25 04:47 | PC.NURSE ---
At start of shift patient asleep but woke shortly after and started yelling at PROGRAM DIRECTOR/AIR PERSONALITY wanting door to be closed. PROGRAM DIRECTOR/AIR PERSONALITY in room with door closed and then patient went back to sleep and has been sleeping since but now awake. States she always wakes up about 0400. Is currently pleasant, smiling and cooperative. Declined offer of bath stating she is going to wash up well when she goes home today. Was agreeable to getting up and walking to bathroom and having brief changed. Also states she would like to brush her teeth. Breath sounds are CTA. HRR. Denies nausea. BT present and abdomen is soft. Denies dysuria, frequency or urgency but is incontinent. Is able to walk with walker and SBA but seems weak and is very slow in movements. Sometimes lets walker get a little too far in front of her and needs reminders to stay close to walker. Has 1+ bilateral LE edema left > right which she states is chronic. Is very BARROW but able to hear if spoken to right next to ear. Has had 1:1 sitter/observation entire shift. Fall risk score is high and bed alarm is activated.
[2020-10-25 05:45] VITALS: BP 126/64; PULSE 70; RESP 18; TEMP 37.1; O2SAT 98
--- NOTE | 2020-10-25 08:47 | PC.NURSE ---
Addendum entered by Jeanine Julian CNA 10/25/20 13:45: Pt took her for a walk and she walked outside in the hallway. She did good with them but got agitated with me after they left. I explained to her that they were just making sure she is able to move around for when she leaves here. She believes that today is Easter Monday and she is having a weeding ceremony with . She has been wanting to get out of here because she thinks she is going to miss her wedding. She is still asking about when she is going to leave. She asked to go for a walk. We walked to [facility] and back to her room. Addendum entered by Jeanine Julian CNA 10/25/20 12:58: She did not eat lunch because she has a big meal planned later but did accept some carrots as a snack. Pt has kept herself occupied by making cards for her . She has been moving around freely in the wheelchair in the room while I am watching her. Addendum entered by Jeanine Julian CNA 10/25/20 11:31: Patient finally agreed to get up for a little bit, so I help her into the restroom. I got her some warm soapy wash cloths and she cleaned her face, underarms, and roberto area herself. Patient was also able to void. No incontinence so far this shift. Addendum entered by Jeanine Julian CNA 10/25/20 10:07: I have made multiple attempts to help patient wash up or at least let me help her into the restroom to change her pull up. She told it was dry and let me check it. IT was actually dry so I encouraged her to drink more water. Original Note: This RONDA took over 1:1 observations for this morning. Perri has been pleasant so far and easily redirected. She is very sweet and likes to talk. It helps to redirect her by asking about things in her life.
[2020-10-25 09:56] VITALS: BP 120/60; PULSE 63; RESP 15; TEMP 36.8; O2SAT 99
--- NOTE | 2020-10-25 12:46 | P.PN_ITS ---
Subjective Subjective Date Patient Seen: 10/25/20 Time Patient Seen: 12:47 Interval history: She is seen in her room here today to follow-up her dementia with behavioral disturbances. She tells me, with great conviction, that she is working on her wedding invitation's and that she and are going to have a recommitment ceremony over there near the hospital. She is actually eating some food today and allowed the CNAs to change her but has not been bathing. A psychiatry consult is pending as is an evaluation by the [facility]. She will also be starting PT and OT evaluations for possible halfway facility placement. Exam Vital Signs (past 8 hours): - 10/25/20 05:45 10/25/20 09:56 Temperature 98.7 F 98.3 F Pulse Rate 70 63 Respiratory Rate 18 15 Blood Pressure 126/64 120/60 Pulse Oximetry 98 99 Oxygen Delivery Method Room Air Oxygen Flow Rate 0 Narrative Exam Narrative: She is alert and oriented to her name only. She is pleasant and cooperative but is very hard of hearing. Heart is regular rate and rhythm without murmur Lungs are clear to auscultation bilaterally Extremities have chronic 2+ ankle edema. [facility] Medical History Dementia HLD (hyperlipidemia) Social History household members: other Smoking Status: Never smoker alcohol intake: former Assessment & Plan Assessment & Plan narrative: Perri Gaytan is an 79 year old female with a past medical history of HLD and dementia admitted for difficulties with placement, continued adjustment of medications for her behavior. 1. Dementia with reported behavioral disturbance - Patient was seen by Psychiatry, Dr. jane 10/21, in the emergency room. Patient was started on olanzapine 2.5 mg, will continue this though patient is currently refusing all medications. Based on consultation with care team during rounds will request Dr. jane consult to evaluate for non decisional in facilitation of state guardianship, and patient is scheduled for a [facility] psych evaluation Monday. The processes need to be started for state guardianship of the patient based on her non decisional mental status related to a diagnosis of dementia. Patient also continues to be a full code -recommended to the nursing staff to present to the ethics committee for evaluation due to the patient's continued refusal to eat, drink or take medications. -will attempt to provide patient with Ativan to allow for diaper/ linen change. -patient continues with bedside sitter for safety protocol - ELECTROENCEPHALOGRAM TECHNOLOGIST consultation for placement. 2. HLD, chronic. - does not appear to be on home medications, listed as a chronic condition. No indication for lipid testing at this time. -patient refusing all medications including Lovenox. Dispo: Unclear, admitted under observation status, pending placement. DVT: Lovenox daily Code: Full per documentation, surrogate decision maker is not currently available, we are attempting to begin facilitation of state guardianship. Quality VTE Deep Vein Thrombosis/Pulmonary Embolism Present on Admission: No
--- NOTE | 2020-10-25 13:36 | PT.IIE ---
Current Diagnoses Alzheimer's disease, unspecified (10/23/20) Medical History (Last Review[facility] 10/24/20 @ 09:17 [facility] Dementia HLD (hyperlipidemia) Physical Therapy Inpatient Evaluation/Re-Eval M1 PT/OT-IP Prior Functional Status Start: 10/25/20 12:27 Freq: NEEDED Status: Active Protocol: Document 10/25/20 13:36 AW (Rec: 10/25/20 14:54 AW [id number]) Medical Review Prior Functional Status Medical History Reviewed Yes Communication EMR indicates diagnosis of dementia. Recent nursing notes state pt has been cooperative and pleasant though not oriented. She is extremely EMMONAK . Mobility and Gait Pt uses 4WW for all mobility. Activities of Daily Living and IADL's Pt is a resident of [facility]. It is unclear what level of assist she receives. Social History Household Members other Living Arrangements Assisted Living Additional Social History Comment No family or social support is identified in the chart. Pt enjoys drawing which she can do in her room. She states she likes to paint as well. M2 PT-IP Current Condition Start: 10/25/20 12:27 Freq: NEEDED Status: Active Protocol: Document 10/25/20 13:36 AW (Rec: 10/25/20 14:54 AW [id number]) Physical Therapy Current Condition Current Condition Evaluation Date 10/25/20 Treatment Diagnosis dementia; impaired mobility and gait Onset Date 10/21/20 M3 PT-IP Subjective Start: 10/25/20 12:27 Freq: NEEDED Status: Active Protocol: Document 10/25/20 13:36 AW (Rec: 10/25/20 14:54 AW [id number]) Subjective Physical Therapy Visit Type Type Initial Evaluation Visit Start Time 13:15 Visit Stop Time 13:36 Total Visit Minutes 21 Notes Pt has 1:1 care with INTELLIGENCE AGENT at time of evaluation. Number of DIRECTOR OF ACCOUNTING Visits 0 Physical Therapy Visit Comments Patient Comments Why am I having therapy when my is a physical therapist and taught me everything already? M4 PT-IP Mobility and Gait Start: 10/25/20 12:27 Freq: NEEDED Status: Active Protocol: Document 10/25/20 13:36 AW (Rec: 10/25/20 14:54 AW [id number]) PT-Transfer Assessment Sit to and From Stand Sit to and from Stand Contact Guard Assistance,1 Person Assistance,Use of Upper Extremities Equipment Transfer Assistive Device Gait Belt,4 Wheeled Walker Orthotic/Prosthetic Devices or Brace: No Transfers Transfer Destination Toilet,Wheelchair Transfer Technique Stand Step Pivot Transfer Ability Level of Assist Contact Guard Assistance Comments Mobility Comments Pt was sitting up in the wheelchair as PT arrived. She needed cues to lock the w/c brakes before attempting to stand. She stood CGA and used the 4WW to ambulate around the room and in the halls for a total of 120 feet. Pt has significant genu valgum and externally rotated tibia bilaterally. She walks with feet in excessive prontation. She pushes the 4WW too far ahead, increasing her fall risk. She responds briefly to cues to show that she is really 5'3 but is easily distracted and reverts to unsafe walker management. On return to the room, pt requests to use the toilet. She transferred CGA and was able to don briefs without assist. She was left with INTELLIGENCE AGENT attending. Gait Assessment Gait Gait Assistance Required: Contact Guard Assist Distance (Feet) 120 Able to Maintain Weight Bearing Status Yes During Gait Assistive Devices Assistive Device Gait Belt,4 Wheeled Walker Orthotic/Prosthetic Devices or Brace: No Gait Deviations General Gait Pattern Decreased Stride Length, Decreased Feet Clearance, Flexed Trunk,Wide Based Gait Factors Limiting Gait Function Factors Limiting Gait Function Decreased Strength,Limited Range of Motion,Poor Balance, Poor Safety Awareness Comments Gait Comments Pt required constant cues for safe walker management and for obstacle navigation. She ambulated with her own 4WW Stair Climbing Assessment Comments Stair Climbing Comments Not assessed. PT-Balance Assessment Sitting Balance and Reactions Static Sitting Balance Ability Good Dynamic Sitting Balance Ability Good Standing Balance and Reactions Static Standing Balance Ability Fair Dynamic Standing Balance Ability Poor Device Used 4WW M5 PT-IP Objective Assessments Start: 10/25/20 12:27 Freq: NEEDED Status: Active Protocol: Document 10/25/20 13:36 AW (Rec: 10/25/20 14:54 AW [id number]) Orientation Orientation/Cognition Level of Alertness Confusional State Orientation Name Language Function Ability Hard of Hearing Safety Awareness Decreased Safety Awareness Memory Description Short Term Impaired,Long-Term Impaired Gross Range of Motion Lower Extremity ROM Assessment Bilaterally Impaired Impairments Lacks TKE bilaterally. Dorsiflexion to less than neutral bilaterally. Strength Lower Extremity Strength Assessment Bilaterally Impaired Hip 4-/5 Knee 4/5 extension; 4-/5 flexion Ankle 3/5 Sensation Assessment Comments Sensation Comments Unable to assess due to cognition. M6 PT-IP Treatment Start: 10/25/20 12:27 Freq: NEEDED Status: Active Protocol: Document 10/25/20 13:36 AW (Rec: 10/25/20 14:54 AW [id number]) Physical Therapy Treatment Education Education Provided Safety M7 PT-IP Assessment and Plan Start: 10/25/20 12:27 Freq: NEEDED Status: Active Protocol: Document 10/25/20 13:36 AW (Rec: 10/25/20 14:54 AW [id number]) PT Summary Assessment and Plan Potential Rehabilitation Potential Good Status of Condition at Evaluation Stable Summary Impairments ROM,Strength,Balance,Cognition ,Bed Mobility,Transfers,Gait Assessment Summary Perri is a pleasant 79 yo woman admitted with behavioral disturbance secondary to dementia. She has been living at [facility] but alternative placement is currently being sought. Pt's PLOF is unclear. On evaluation, she presents with decreased strength, impaired dynamic balance, and reduced safety awareness which increase her risk of falling. She is a good candidate for SNF rehab and would ultimately benefit from long-term placement or memory care. Goals Bed Mobility Goal Independent Transfer Goal Independent,Four Wheeled Walker Gait Goal Standby Assistance,Four Wheel Walker Gait Distance 200 Other Goals - improve ambulation to modified independent with 4WW. Days to Meet Goals 10 Frequency of Treatment Frequency Of Treatment Once a Day Treatment Plan Physical Therapy Treatment Plan Bed Mobility Training,Transfer Training,Gait Training, Therapeutic Exercise,Balance Retraining,Discharge Planning, Neuromuscular Re-ed Other Recommendations and Next Treatment ambulation with 4WW Focus Recommendations To Nursing Amount of Assist Needed 1 Person Assist Discharge Recommendations PT Discharge Recommendations Home with 30/01 Assist Available,SNF Rehab Transportation Needs at Discharge Wheelchair/Cabulance
--- NOTE | 2020-10-25 13:44 | CM.DANOTE ---
SEE COGNOS CONSULTANT notes for details. Currently PT/OT evaluations pending. If patient qualifies might be beneficial to send to SNF while waiting on long-term plan to unfold through the state. [facility] Discharge Planning/Care Management CM Discharge Assessment Start: 10/25/20 13:37 Freq: Status: Active Protocol: Document 10/25/20 13:37 KJDave (Rec: 10/25/20 13:44 KJS [id number]) Discharge Planning Assessment Assigned Driver Operator Morelia Degroot MSW Contact Information None indicated Advance Directives? No Advance Directives on File No History Provided By Patient,Medical Record Prior Living Arrangements Assisted Living Household Members other Type of transporation used prior to Relies on Others admit Facility Name Admitted From: [facility] Independent with ADL's Primarily I at [facility] Is patient alert and oriented? No: Dementia Needs Assistance With Meal Prep,Managing Medications ,Home Chores / Shopping Caregiver for Another No Barriers to Discharge Yes Comment Review COGNOS CONSULTANT notes from ED and acute floor COGNOS CONSULTANT's. Patient lived at [facility] and does not want to go back. Medicaid is primary payor for long-term placement. Patient has [employer] ADV as prime for hospitalization. Messages have been left with [facility] for immediate change in placement. Contact for [facility] is Marianne Osman ph# [phone]. Emergency Transisiton Team CM is Jacob ph# . Discharge Plan Assisted Living Facility Referrals Initiated Other Additional Comment Awaiting assistance from [facility] for long-term placement. PT/OT evaluations ordered for potential SNF stay while waiting for snf placement? Review Status In Process Next Review Type Continued Stay Review ED Psychiatric Symptoms Assessment Start: 10/21/20 15:44 Freq: Status: Discharge Protocol: Document 10/21/20 15:44 BS (Rec: 10/21/20 15:49 BS [id number]) Psychiatric Symptoms Assessment Symptoms/Complaint Altered Mental Status History Of Same Yes Details of Plan patient does not want to go back to [place] she wants to go back to [place] she states [place] is not safe, [place] is safe Level of Consciousness Alert,Awake,Follows Commands, Restless Patient Orientation Name,Month,Year Patient Behavior/Mood Anxious,Restless Ability to Follow Directions Fair Affect Description Anxious,Fearful Nausea/Vomiting None Document 10/22/20 00:10 AP (Rec: 10/22/20 00:12 AP [id number]) Psychiatric Symptoms Assessment Symptoms/Complaint does to want to go back to specific SNF building Duration Constant History Of Same Yes Context Significant Life Stressor Improves With Nothing Worsens With Nothing Associated Symptoms Denies Other Symptoms Level of Consciousness Alert,Awake,Follows Commands Patient Orientation Name,Age,Place Patient Behavior/Mood Cooperative Ability to Follow Directions Excellent Patient Cognition Impaired No Document 10/22/20 08:00 NISSA (Rec: 10/22/20 12:20 [facility] [id number]) Psychiatric Symptoms Assessment Symptoms/Complaint Altered Mental Status Level of Consciousness Alert,Awake Ability to Follow Directions Poor Patient Cognition Impaired Yes Major Depressive Episode No Feelings of Hopelessness No Suicidal Ideation None Suicide Plan No Plan Homicidal Ideation None Nausea/Vomiting None
[2020-10-25 15:29] VITALS: BP 133/55; PULSE 71; RESP 18; TEMP 36.8; O2SAT 97
[2020-10-25 16:32] VITALS: O2SAT 97
--- NOTE | 2020-10-25 17:33 | PC.NURSE ---
patient sitting peacefully in room conversing with 1:1 aid laughing and telling stories at this time. Patient is alert to self, date, place and some situation. Patient voices that they are coming to get me to go home soon. Patient was hesitant of eating dinner as she will eat when she goes home. Nurse and aid convince patient that she may wish to eat just a little. Patient was agreeable and ate about 25% of meal.
[2020-10-25] MEDS: OLANZapine 2.5 MG TABLET PO (21:22)
--- NOTE | 2020-10-25 23:12 | PC.NURSE ---
Addendum entered by José Abrams CNA 10/26/20 06:22: @0600 Pt awoke pleasantly, commenting on how beautiful the sunrise was. Pt requested to walk, being able to walk with FWW and TRASH HAULER approximately 150 feet without difficulty. When asked to use bathroom pt initially refused, but was discovered to be incontinent. Pt encouraged to use bathroom, where she voided, and afterwards had bath with assistance from female TRASH HAULER and RN. Original Note: Continuation of 1:1, start of shift patient speaking alone in room with herself, and shortly after fell asleep.
--- NOTE | 2020-10-26 04:24 | PC.NURSE ---
Addendum entered by Jannie Isaacs R.N. 10/26/20 06:41: Pt finally awake and very happy and animated. Denies pain, states she slept well and feels good. Pt up to walk with walker down the bobo and back to her room, incontinent and voided in toilet, and then was agreeable to having her hair washed, face cleaned, teeth brushed, and part of her body cleaned. Brief changed, hair combed, new gown. Pt given fresh water and is now talking with José BOND. Original Note: 0300 Pt still sleeping, breathing even and unlabored, face relaxed. Bed alarm on. Pt has been asleep since the beginning of shift which inhibits physical assessment. Spoke with Hospitalist Aj who stated that I should let the Pt rest and not wake her up for a full assessment. Pt still sleeping at 0426 but being closely observed 1:1 and alert for any change in Pt condition.
[2020-10-26 07:00] VITALS: BP 120/80; PULSE 82; RESP 20; TEMP 36.4; O2SAT 94
--- NOTE | 2020-10-26 09:15 | OT.IP.EVAL ---
Current Diagnoses Alzheimer's disease, unspecified (10/23/20) Past Medical History (Last Reviewed 10/24/20 @ 09:17 by JHON Alarcon) Dementia HLD (hyperlipidemia) Occupational Therapy Inpatient Evaluation/Re-Eval M1 PT/OT-IP Prior Functional Status Start: 10/25/20 12:27 Freq: NEEDED Status: Active Protocol: Document 10/26/20 11:09 CGR (Rec: 10/26/20 11:22 CGR [id number]) Medical Review Prior Functional Status Medical History Reviewed Yes Communication EMR indicates diagnosis of dementia. Recent nursing notes state pt has been cooperative and pleasant though not oriented. She is extremely [place] . Mobility and Gait Pt uses 4WW for all mobility. Activities of Daily Living and IADL's Pt is a resident of [facility]. It is unclear what level of assist she receives. Social History Household Members other Living Arrangements Assisted Living M1 PT/OT-IP Prior Functional Status Start: 10/26/20 11:08 Freq: NEEDED Status: Active Protocol: Document 10/26/20 11:09 CGR (Rec: 10/26/20 11:22 CGR [id number]) Medical Review Prior Functional Status Medical History Reviewed Yes Communication EMR indicates diagnosis of dementia. Recent nursing notes state pt has been cooperative and pleasant though not oriented. She is extremely [place] . Mobility and Gait Pt uses 4WW for all mobility. Activities of Daily Living and IADL's Pt is a resident of [facility]. It is unclear what level of assist she receives. Social History Household Members other Living Arrangements Assisted Living M2 OT-IP Current Condition Start: 10/26/20 11:08 Freq: Status: Active Protocol: Document 10/26/20 11:09 CGR (Rec: 10/26/20 11:22 CGR [id number]) Occupational Therapy Current Condition Current Condition Evaluation Date 10/26/20 Treatment Diagnosis dementia with behavioral disturbance Diagnosis Onset Date 10/23/20 M3 OT- IP Subjective and Pain Start: 10/26/20 11:08 Freq: Status: Active Protocol: Document 10/26/20 11:09 CGR (Rec: 10/26/20 11:22 CGR [id number]) OT- Subjective Occupational Therapy Visit Type Type Initial Evaluation Visit Start Time 08:49 Visit Stop Time 09:15 Total Visit Minutes 26 Notes sitter present in room when OT entered. OT Pain Assessment Pain When Pain Assessed At Rest Pain Present Pain Present Denied Pain M4 OT- IP ADL's Start: 10/26/20 11:08 Freq: Status: Active Protocol: Document 10/26/20 11:09 CGR (Rec: 10/26/20 11:22 CGR [id number]) OT [id number] Comments OT Self-Feeding Comments not meal time OT ADL-Grooming General Evaluation Grooming Ability Independent,Standby Assistance Areas Needing Assistance Retrieving/Set-up of Grooming Items,Combing/Brushing Hair, Face Washing Comments OT Grooming Comments standing at sink OT ADL-Oral Care General Eval Oral Care Ability Independent,Standby Assistance Areas of Assistance Brushing Teeth Comments Oral Care Comments standing at sink OT ADL-Dressing General Eval Lower Body Dressing Ability Independent Areas Needing Assistance Underpants/Brief,Socks Comments OT Dressing Comments seated in chair without AD OT ADL-Toileting General Evaluation Toileting Ability Independent,Standby Assistance Comments OT Toileting Comments seated on toielt for urination OT ADL-Bathing Comments OT Bathing Comments not performed, nursing states bed bath this AM M5 OT- IP IADL's Start: 10/26/20 11:08 Freq: Status: Active Protocol: Document 10/26/20 11:09 CGR (Rec: 10/26/20 11:22 CGR [id number]) OT-Instrumental Activities of Daily Living Deficits IADL Deficits Identified Deficits Home Safety Awareness Awareness of Need for Assistance at Home Decreased Awareness Ability to Problem Solve Emergency Unable to Problem Solve Situations Medication Management Medication Management Caregiver Administers Money Management Money Management Caregiver Provides Assistance Meal Preparation Meal Preparation Caregiver Provides Assist Box Office Clerk Box Office Clerk Caregiver Provides Assist Driving Driving Comments Pt does not drive M6 OT- IP Functional Cognition Start: 10/26/20 11:08 Freq: Status: Active Protocol: Document 10/26/20 11:09 CGR (Rec: 10/26/20 11:22 CGR [id number]) Cognitive Factors Limiting Selfcare Function Cognitive Ability Level of Alertness Alert Patient Orientation Name,Month,Date,Year,Day of Week,Place Attention Span Ability Capable of Focused Attention, Unable to Sustain Attention Ability to Follow Commands Able to Follow One Step Commands with Increased Time, Able to Follow One Step Commands with Repetition OT- Vision and Hearing OT- Hearing Assessment OT- Hearing Assessment Hearing Impaired OT- Vision Assessment Visual Acuity Glasses For Reading Visual Attentiveness WFL Occular Pursuits WFL Visual Convergence WFL Vision Assessment Comments Pt states that she typically has glasses but did not bring them with her. M7 OT- IP Mobility and Balance Start: 10/26/20 11:08 Freq: Status: Active Protocol: Document 10/26/20 11:09 CGR (Rec: 10/26/20 11:22 CGR [id number]) OT-Transfer Assessment Sit to and From Stand Sit to and from Stand Standby Assistance Transfers Transfer Ability Standby Assistance Technique Transfer Destination Chair,Toilet Transfer Technique Stand Step Pivot Devices Transfer Assistive Devices Gait Belt,4 Wheeled Walker Comments Mobility Comments Pt mobilizes in the room with 4WW and gait belt with SBA. Pt has poor safety awareness and does not lock her walker with transfers. OT- Balance Assessment Sitting Balance and Reactions Static Sitting Balance Ability Good Dynamic Sitting Balance Ability Good M8 OT- IP Objective Assessments Start: 10/26/20 11:08 Freq: Status: Active Protocol: Document 10/26/20 11:09 CGR (Rec: 10/26/20 11:22 CGR [id number]) OT Gross Range of Motion Upper Extremity Range of Motion Assessment Within Functional Limits OT Strength Upper Extremity Strength Assessment Within Functional Limits Comments Strength Comments 4/5 throughout OT- Coordination Assessment Upper Extremity Finger to Nose Test Within Functional Limits Finger Tapping Test Within Functional Limits OT-Muscle Tone Assessment Muscle Tone WNL Yes OT Sensation Assessment Edema Edema Present Edema Comments BLE swelling noted. M9 OT- IP Assessment and Plan Start: 10/26/20 11:08 Freq: Status: Active Protocol: Document 10/26/20 11:09 CGR (Rec: 10/26/20 11:22 R [id number]) OT Summary Assessment and Plan Potential Rehabilitation Potential Good Analytic Complexity at Evaluation Low Summary OT Impairments Functional Cognition Progress Towards Goals Goals Met Assessment Summary Pt presents as a low complexity evaluation s/p admit for dementia with behavioral disturbance. Pt appears to be at her baseline for ADLs at this time. Pt does not use walker as intended but at this time appears balanced with her mobility and is unlikely to remember and incorporate newly learned safty into her daily life. No further OT needs. Frequency of Treatment Frequency Of Treatment Discharge Discharge Recommendations OT Discharge Recommendations LTAC Transportation Needs at Discharge Private Vehicle
--- NOTE | 2020-10-26 10:03 | PC.NURSE ---
Patient has 1:1 sitter present. Alert to name, LARSEN BAY, up to chair. Patient currently calm and cooperative. Refused Lovenox shot, stated she will take pills but no shots. Patient's breathing is unlabored, RR WNL. Patient denies dizziness or lightheadedness. Pulses equal and WNL.
--- NOTE | 2020-10-26 10:28 | PM.PN.1 ---
Subjective Subjective Date Patient Seen: 10/26/20 Time Patient Seen: 08:29 Interval history: She is seen in her room here today to follow-up her dementia with behavioral disturbances. She is eating well today, per the bedside DICE MAKER she has been very pleasant and participatory with PT and other medical staff. She has no concerns today. Exam Vital Signs (past 8 hours): - 10/26/20 07:00 Temperature 97.5 F L Pulse Rate 82 Respiratory Rate 20 Blood Pressure 120/80 Pulse Oximetry 94 Oxygen Delivery Method Room Air Oxygen Flow Rate 0 Narrative Exam Narrative: General: She is alert and oriented to name, date, and location. She is hard of hearing Heart: regular rate and rhythm without murmur Lungs: clear bilaterally Extremities: have chronic 2+ ankle edema. [facility] Medical History Dementia HLD (hyperlipidemia) Social History household members: other Smoking Status: Never smoker alcohol intake: former Assessment & Plan Assessment & Plan narrative: Perri Gaytan is an 79 year old female with a past medical history of HLD and dementia admitted for difficulties with placement, continued adjustment of medications for her behavior. 1. Dementia with reported behavioral disturbance - Patient was seen by Psychiatry, Dr. jane 10/21, in the emergency room. Patient was started on olanzapine 2.5 mg, will continue this. Today she is very pleasant and cooperative. - pending PT/OT evaluation - pending evaluation for possible guardianship, as has no known health poa - she continues with bedside sitter for safety protocol - FIBER OPTICS TECHNICIAN working on placement 2. HLD, chronic. - does not appear to be on home medications, listed as a chronic condition. No indication for lipid testing at this time. Dispo: Pending placement. DVT: Lovenox daily Code: Full per documentation, surrogate decision maker is not currently available, we are attempting to begin facilitation of state guardianship. Time Spent With Patient Time with patient: less than 15 minutes Quality VTE Deep Vein Thrombosis/Pulmonary Embolism Present on Admission: No
--- NOTE | 2020-10-26 10:51 | CM.DPNOTE ---
Faxed clinicals to [facility] and [facility] RAFAEL Thibodeaux on 10/26/20. Received fax confirmation. Nora Barrett CM Asst.
--- NOTE | 2020-10-26 11:56 | CM.DPC ---
Addendum entered by Morelia Degroot 10/26/20 14:59: Received vm from [facility] RAHUL/Marianne phone# [phone]. CARTRIDGE MAKER returned call and vm left requesting that CM come and do state assessment for placement [facility]. Provider reports patient is medically stable for discharge. P: CARTRIDGE MAKER following closely for planning. Currently awaiting for updated state assessment. Unsure if patient would be best suited at [facility] or Assisted Living environment. Morelia Degroot, BC Original Note: DCP Continued: Spoke with Isa at [facility] this morning, she confirmed patient has been having hallucination and delusions prior to September, ?It has been getting worse slowly.? Isa reported she does not have a DPOA, or any supports. Patient does have a daughter but the daughter is not to be called as there was a past restraining order and APS involvement. Spoke with patient this date sitting in a chair she was oriented to self. The patient was informed [facility] will be visiting at 10am, she was agreeable to the interview and signed a Consent form for information to be shared with [facility]. Spoke with Marleny and VOLODYMYR Young from [facility] post their assessment. 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 [facility] is recommended long-term placement with mental health support provided by [facility]. Called and spoke with Jacob at [facility] this date she confirmed she no longer has Ms. Span?s case the case was moved to the hospital unit: supervisor machine workers is Tiffanie Arora she confirmed Marianne Ho has Ms. Melissa case since Monday. Valerio Maite stated Marianne is in her allotted time frame to return the call. She also, stated an in-person interview will need to be conducted prior to exploring placement options. Ms. Arora confirmed the last annual assessment was completed on 17 AUG 2020. In addition, to above trying to secure a SNF placement however, it will be very limited amount of time due to patient?s functional level. [facility] and [facility] for placement. [facility] Johnathan Ford returned call they currently do not have a bed open at this time. PLAN: Pending calls from Marianne Osman to see how [facility] can assist in D/C placement and from [facility]. CM Team to continue to follow closely. BC Dang MSW Student
[2020-10-26 15:35] VITALS: BP 120/69; PULSE 69; RESP 17; TEMP 36.9; O2SAT 97
[2020-10-26 16:00] VITALS: O2SAT 95
--- NOTE | 2020-10-26 17:10 | PC.NURSE ---
Addendum entered by Destinee Dowd R.N. 10/26/20 21:54: Pt sleeping at this time. Denies any discomfort. Call light w/in reach, bed alarm on for pt safety. Continue w/plan of care. Original Note: Pt sitting in chair, drawing Alert w/some confusion, Denies discomfort at this time. Continues w/sitter Call light w/in reach, chair alarm on for pt safety.
--- NOTE | 2020-10-26 17:14 | PC.NURSE ---
Pt. refused her dinner tray. I gave her jello, which she ate. Offered raw celery and carrots but she refused those. She keeps herself entertained with drawing pictures from the magazine.
[2020-10-26] MEDS: OLANZapine 2.5 MG TABLET PO (21:52)
--- NOTE | 2020-10-27 06:08 | PC.NURSE ---
At start of shift Perri was covering face complaining that she smelled smoke and accusing staff of smoking; assured that this is a non smoking facility and no one is smoking. After provided reassurance Perri was able to go to sleep and has slept the entire night. Now awakened for assessment. Is pleasant and cooperative but very [place]. Is oriented except did not know the year she was born and had her age incorrect at 89. Breath sounds CTA. HRR. Denies nausea. BT present and abdomen is soft; reports she had a BM yesterday. Has been often incontinent of urine but does sometimes agree to get up to go to the bathroom and voids; denies dysuria. Able to move herself in bed. Is able to walk with walker and 1 assist to provide cues for safe ambulation due to weakness. Fall risk score is high and bed alarm is being used as well as 1:1 staff observation due to history of behavioral disturbances. Relates that she is here at the hospital because she was in ICU. States she was told she would be in for 1 day and now have been here for 5 days. Did allow BIOMEDICAL ENGINEER to change brief and provide pericare but declined bath or brushing teeth at this time.
[2020-10-27 08:18] VITALS: TEMP 36.7
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
[2020-10-27 09:37] VITALS: BP 126/67; PULSE 63; RESP 17; O2SAT 98
--- NOTE | 2020-10-27 10:10 | P.PN_ITS ---
Subjective Subjective Date Patient Seen: 10/27/20 Time Patient Seen: 09:10 Interval history: No acute issues today. She is participating with staff, and she has no concerns. Exam Vital Signs (past 8 hours): - 10/27/20 08:18 10/27/20 09:37 Temperature 98.0 F Pulse Rate 63 Respiratory Rate 17 Blood Pressure 126/67 Pulse Oximetry 98 Oxygen Delivery Method Room Air Oxygen Flow Rate 0 Narrative Exam Narrative: General: She is alert and oriented to name, date, and location. She is hard of hearing Heart: regular rate and rhythm without murmur Lungs: clear bilaterally Extremities: have chronic 1+ ankle edema. [facility] Medical History Dementia HLD (hyperlipidemia) Social History household members: other Smoking Status: Never smoker alcohol intake: former Assessment & Plan Assessment & Plan narrative: Perri Gaytan is an 79 year old female with a past medical history of HLD and dementia admitted for difficulties with placement, continued adjustment of medications for her behavior. 1. Dementia with reported behavioral disturbance - Patient was seen by Psychiatry, Dr. johnson 10/21, in the emergency room. Patient was started on olanzapine 2.5 mg, will continue this. Today she is very pleasant and cooperative. - pending PT/OT evaluation - pending evaluation for possible guardianship, as has no known health poa - she continues with bedside sitter for safety protocol - MOVING CONSULTANT working on placement 2. HLD, chronic. - does not appear to be on home medications, listed as a chronic condition. No indication for lipid testing at this time. Dispo: Pending placement. DVT: Lovenox daily Code: Full per documentation, surrogate decision maker is not currently available, we are attempting to begin facilitation of state guardianship. Time Spent With Patient Time with patient: less than 15 minutes Quality VTE Deep Vein Thrombosis/Pulmonary Embolism Present on Admission: No
[2020-10-27] MEDS: LORazepam 0.5 MG TABLET PO (11:09)
--- NOTE | 2020-10-27 15:26 | CM.DANOTE ---
Addendum entered by Morelia Degroot 10/27/20 15:40: Dr. Johnson following, he will be checking on patient throughout hospitalization. [facility] plans to do follow up as outpatient. They will need to be notified of patient's d/c disposition. Original Note: DCP/continued: Reviewed chart. Received return phone call for assigned home and community CM/Marianne Osman she reports that she will be at [facility] on 10-29-20 at 11:00AM. CM sr community manager/Denisse updated. In addition, placed call to Paula Schuster senior escrow officer of [facility] ph# [phone], she reports that she does have medicaid bed available. FURNACE MAINTENANCE requested that Paula come do evaluation. Paula reports that she will come to [facility] Monday in AM to evaluate. Paula inquiring about daily rate? Notified Paula that Home and Community would be doing there assessment on . Paula aware that patient previously at [facility] under medicaid. LEANA/Nora placing calls to both assisted living and adult family homes to check on medicaid bed availability. FURNACE MAINTENANCE hopeful that once state assessment completed and bed rate determined that bed will be located within 24-72hrs. P: Awaiting state assessment for long-term placement. Patient with some cognitive impairment but did fairly well on SLUMS Examination (21). Anticipate assisting living and/or adult family home will be suitable. BC Dang
[2020-10-27 17:00] VITALS: O2SAT 98
--- NOTE | 2020-10-27 23:32 | PC.NURSE ---
Aura Traore RABBET OPERATOR 1:1 care for patient on 10/27/20 at 2300pm Pt. is asleep, bed alarm is on, Pt. is breathing
--- NOTE | 2020-10-27 23:56 | PC.NURSE ---
At about 2356pm Pt. stirring in bed put covers over her head, I am sitting outside ofPt. room door with door crack so I can see Pt.
--- NOTE | 2020-10-28 01:06 | PC.NURSE ---
Pt. is still sleeping
--- NOTE | 2020-10-28 06:17 | PC.NURSE ---
Pt. woke this morning at 0600pm yelling that she wanted to get out of here. Pt.refused roberto-care, refused to have brief changed
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
--- NOTE | 2020-10-28 06:24 | PC.NURSE ---
Pt. stated that she has been here over a week and she wants to talk to the doctor, I told Pt. I didn't know when the doctor would be in, offered Pt. to go to the bathroom she refused, ask would there anything I could get her and she said no thank you she was fine. Pt. is sitting on side of bed.
[2020-10-28 07:11] VITALS: BP 116/73; PULSE 82; RESP 14; TEMP 36.6; O2SAT 97
[2020-10-28] MEDS: LORazepam 0.5 MG TABLET PO (07:32)
--- NOTE | 2020-10-28 10:23 | PM.PN.1 ---
Subjective Subjective Date Patient Seen: 10/28/20 Time Patient Seen: 09:23 Interval history: No new concerns this morning. She intermittently has declined medications including olanzapine last night. Exam Vital Signs (past 8 hours): - 10/28/20 07:11 Temperature 98 F Pulse Rate 82 Respiratory Rate 14 Blood Pressure 116/73 Pulse Oximetry 97 Oxygen Delivery Method Room Air Oxygen Flow Rate 0 Narrative Exam Narrative: General: She is alert and oriented to name, date, and location. She is hard of hearing Heart: regular rate and rhythm without murmur Lungs: clear bilaterally Extremities: have chronic 1+ ankle edema. [facility] Medical History Dementia HLD (hyperlipidemia) Social History household members: other Smoking Status: Never smoker alcohol intake: former Assessment & Plan Assessment & Plan narrative: Perri Gaytan is an 79 year old female with a past medical history of HLD and dementia admitted for difficulties with placement, continued adjustment of medications for her behavior. 1. Dementia with reported behavioral disturbance - Patient was seen by Psychiatry, Dr. johnson 10/21, in the emergency room. Patient was started on olanzapine 2.5 mg, will continue this. Today she is very pleasant and cooperative. - pending PT/OT evaluation - pending evaluation for possible guardianship, as has no known health poa - she continues with bedside sitter for safety protocol - SPRINKLER IRRIGATION EQUIPMENT MECHANIC working on placement 2. HLD, chronic. - does not appear to be on home medications, listed as a chronic condition. No indication for lipid testing at this time. Dispo: Pending placement. DVT: Lovenox daily Code: Full per documentation, surrogate decision maker is not currently available, we are attempting to begin facilitation of state guardianship. Quality VTE Deep Vein Thrombosis/Pulmonary Embolism Present on Admission: No
--- NOTE | 2020-10-28 10:39 | CM.DPNOTE ---
Addendum entered by BC Ríos 10/28/20 13:30: Risa at [facility] P# [phone] Addendum entered by BC Ríos 10/28/20 13:22: Attempting to get a hold of Risa at [facility]- attempted number listed in chart x2- P# [phone] and first attempt did not allow VM, second attempt was a wrong number. Also attempted prior listed number P# [phone] Original Note: DCP Note Reviewed chart. Patient calm and cooperative this morning, easily redirected. Attempted call to Risa w/[facility] this morning to ask what time she could complete bedside assessment? No answer, no ability to leave message. Placed call to Filemon at [facility] in [place], Filemon explains [facility] has alf care [facility] beds available, Nora Hernández CMA has now faxed clinical SNF packet. Have not heard from [facility]. Following closely. Patient would benefit from an appointed guardian or DPOA, however, this is expected to be a lengthy process and patient's cognition certainly waxes and wanes. Will continue to discuss w/care team, Dr Johnson, and state team ([facility] and [facility]PS) JW
--- NOTE | 2020-10-28 10:52 | CM.DPNOTE ---
Faxed referral packet to [facility] Attn: Filemon on 10/28/20 per Yolanda. Fax confirmation received. Nora Barrett CM Asst.
[2020-10-28 11:15] VITALS: BP 137/78; PULSE 78; RESP 16; TEMP 36.1; O2SAT 98
--- NOTE | 2020-10-28 11:15 | PC.NURSE ---
Pt visiting with 1:1 GROUP LEADER, and was repositioning in her chair, ended up sliding down about 1.5 ft from chair onto floor, landing on a pillow and blanket. Pt got up immediately with assistance, denies pain, skin assessed, no trauma visible. Coordinator and hospitalist informed.
--- NOTE | 2020-10-28 13:35 | CM.DPNOTE ---
Addendum entered by BC Ríos 10/29/20 12:45: Spoke lavinia Odonnell at [facility] in [place], # [phone], she has a shared room available, an all female unit, and in order to consider patient she would need to qualify for the following: the specialized rate for memory care units ($unknown) and the $60 daily rate for patients w/dementia in hospitals awaiting placement. Patient would have to have DPOA or Guardian assigned to make decisions on her behalf. Original Note: DCP Note Clinical packet faxed today to [facility] in [facility]. Spoke lavinia Lord at [facility]; she explained she may not be able to complete a bedside visit today since one of her caregivers is delayed to work. Risa asks about rate? Risa has one private room available, in order for patient to secure this bed, the rate will need to be at least $116 JW
--- NOTE | 2020-10-28 14:58 | CM.DPNOTE ---
Faxed referral packet to [facility] at [facility] [place] [address] [place] per Yolanda on 10/28/20. Received fax confirmations for both. Nora Barrett CM Asst.
[2020-10-28 15:30] VITALS: BP 131/73; PULSE 73; RESP 20; TEMP 36.5; O2SAT 98
[2020-10-28 16:41] VITALS: O2SAT 98
--- NOTE | 2020-10-28 22:04 | PC.NURSE ---
pt declined her olanzipine. pt states she already took her one med for today.
--- NOTE | 2020-10-28 23:58 | PC.NURSE ---
patient is alert and oriented except to age (thinks she is 88) and situation. Very [place]. Breath sounds CTA. HRR. Denies nausea. BT present and abdomen is soft. Has been both continent and incontinent of urine; denies dysuria, frequency or urgency with urination. Able to move self in bed. Out of bed with walker and SBA; generally refuses any assistance. Continued edema bilateral LE left > right. Denies pain. Fall risk score is high and bed alarm is on and has 1:1 sitter/observation.
[2020-10-29 00:06] VITALS: BP 131/75; PULSE 87; RESP 18; O2SAT 92
--- NOTE | 2020-10-29 01:48 | PC.NURSE ---
Addendum entered by Bobbi Morrison CNA 10/29/20 05:24: RONDA note: patient sitting in front wheel walker chair, playing solitaire. Has not slept since 29. Patient occasionally yells out things like my nephew is a box annealer! He wants me out of here! my son is an trademark attorney! I need to get out of here right now! my is a doctor! She will take things off her bed (like her pillows or incontinent pad) and then ask who took my bed pad? I have asked if she would like any coffee or tea this morning. She refuses I'm leaving soon! And I will get breakfast then! Sitting within reach of patient, watching patient. Original Note: RONDA note: patient woke up, is ready to be up for the day, walked up and down the hallway, wanted to use the elevator (my is down there), patient told me that we were holding her here, explained we were not, patient sat on the edge of bed, combed hair, patient is currently playing solitaire. Sitting near patient. Patient has said I'm deaf! You need to talk louder! but shown that she can here staff in the hallway.
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
[2020-10-29 09:35] VITALS: BP 131/77; PULSE 68; RESP 16; TEMP 36.1; O2SAT 98
[2020-10-29 10:54] VITALS: BMI 29.9
--- NOTE | 2020-10-29 11:18 | PC.NURSE ---
Day shift: Per NOC RN report Pt did not sleep last night. Pt has been pleasant today but confused at times. Has not slept today (1120). Per RONDA Solorzano, Pt refused POA designation to her daughter Yomaira today. Yolanda w/ [facility] was in the room as well. VS WNL. No c/o pain or discomfort. Pt sated this AM I feel great. She does still believe the elevator needs to be fixed and her is downstairs and a loss prevention detective. Will continue to monitor and continue w/ plan of care.
--- NOTE | 2020-10-29 11:54 | CM.DPNOTE ---
Addendum entered by BC Ríos 10/29/20 12:42: [facility] Sander Operator contact; Tiffanie Arora P# [phone] Original Note: DCP Note Spoke w/Marianne Osman this morning, patient's [facility] Shot Grinder Operator P# [phone], discussed the following points: -Is patient decisional or non decisional? If patient is found decisional and can manage her own finances, she can theoretically sign the consent forms that are required before the search for an AFH/SHELTER can begin Spoke w/Dr Martinez and psychiatrist Dr Johnson; Dr Johnson plans to complete bedside assessment for decisional capacity this afternoon/evening after his clinic hours -Does patient have anyone she can appoint as DPOA? Daughter Yomaira Cope P# [phone] visited patient today, patient welcomed dtr into her room. See following note for information on this visit. Dtr Yomaira states she may have DPOA ppk that patient completed years ago and will provide if she can find -If patient is found non decisional w/o DPOA, [facility] is obligated to begin the petition for Guardianship on patient's behalf. Once Guardianship is secured, [facility] will complete the assessment and begin AFH/NINFA at that time. Meanwhile, patient remains at [facility] Suggested to Marianne that she hold a spot for patient's assessment tomorrow at 1100 and Marianne agreed. If patient is found capable of signing her own consent forms and/or dtr can produce valid DPOA ppk and sign consent forms on patient's behalf...Marianne can complete the assessment and search can begin on patient's behalf BC Ríos
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
--- NOTE | 2020-10-29 14:54 | PM.PN.1 ---
Subjective Subjective Date Patient Seen: 10/29/20 Time Patient Seen: 08:54 Interval history: Today she has no complaints. She thinks she is leaving the hospital to meet her which is clearly not true. Per the nursing staff she still refuses shower but otherwise has been pleasant, cooperative, redirectable. Exam Vital Signs (past 8 hours): - 10/29/20 09:35 Temperature 97.0 F L Pulse Rate 68 Respiratory Rate 16 Blood Pressure 131/77 Pulse Oximetry 98 Oxygen Delivery Method Room Air Oxygen Flow Rate 0 Narrative Exam Narrative: General: She is alert and oriented to name, date, and location. She is hard of hearing Heart: regular rate and rhythm without murmur Lungs: clear bilaterally Extremities: have chronic 1+ ankle edema. [facility] Medical History Dementia HLD (hyperlipidemia) Social History household members: other Smoking Status: Never smoker alcohol intake: former Assessment & Plan Assessment & Plan narrative: Perri Gaytan is an 79 year old female with a past medical history of HLD and dementia admitted for difficulties with placement, continued adjustment of medications for her behavior. 1. Dementia with reported behavioral disturbance - Patient was seen by Psychiatry, Dr. johnson 10/21, in the emergency room. Patient was started on olanzapine 2.5 mg, will continue this. Today she is very pleasant and cooperative. - pending evaluation for possible guardianship, as has no known health poa - she continues with bedside sitter for safety protocol - [facility] [employer] working on placement 2. HLD, chronic. - does not appear to be on home medications, listed as a chronic condition. No indication for lipid testing at this time. Dispo: Pending placement. DVT: Lovenox daily Code: Full per documentation, surrogate decision maker is not currently available, we are attempting to begin facilitation of state guardianship. Quality VTE Deep Vein Thrombosis/Pulmonary Embolism Present on Admission: No
[2020-10-29 16:00] VITALS: O2SAT 98
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
[2020-10-29] MEDS: OLANZapine 2.5 MG TABLET PO (18:47)
--- NOTE | 2020-10-29 23:24 | PC.NURSE ---
Addendum entered by Fatmata Bird CNA 10/30/20 06:44: At around 0550 the patient got up and ambulated herself down the bobo to the ICU, while there and on the walk down she asked, over and over, why can't I go home? citing as the scheduled renewing of her wedding vows with her later this morning. Myself and other staff informed her that she will have to wait to see the doctor before she can go home. After waiting at the ICU to get the staff to answer her question, at around 0630, the patient ambulated back down the bobo. Currently the patient is sitting in her four wheel walker by her bed, facing the window, coloring with her colored pencils. Continuing one to one observation. Addendum entered by Fatmata Bird CNA 10/30/20 05:18: Patient slept for about 4.5 hours. She woke and I help her to the bathroom and her morning routine. She refused a bath, but preformed a spot bath with roberto-wipes, when I noticed redness and irritation under her left breast and under arm. I attempted to look closer but she would not let me, she refused any baby powder or other help for the irritation. Patient packed up her belongings and refused food, telling me that she will eat once I go home across the street. I told the patient that the doctor will have to take a look at her before she goes home. She seemed to agree. Patient did not tolerate sitting in bed after her morning routine, and while I told her sitting in her four while walker wasn't safe, that she could fall, she insisted to sit in it. Not wanting to agitate her I made her as safe as I could and talked to the nurse about it. We came up with a compromise, of the patient had to sit near her bed while sitting in the four wheel walker. patient is sitting and working on word find puzzles. Original Note: Patient is resting in bed, talking to herself. At 2320 she asked me to write own the name of the pill that will make me I told her that we do not give pills like that here. Continuing one on one observation.
[2020-10-30 09:12] VITALS: BP 129/77; PULSE 87; RESP 21; TEMP 36.9; O2SAT 100
--- NOTE | 2020-10-30 11:55 | CM.DPNOTE ---
After speaking with I had spoken to Ngozi Goodwin at [facility], I called Fatmata Anderson at [facility] ([phone]) to ask her if there would be issue on their end if we proceeded using the DPOA paperwork mentioned in Yolanda Malloy DEBONE SUPERVISOR notes. I explained that this would likely mean that the pts. daughter - DPOA since 2016 - would be handling the financial/billing piece with whatever facility we find for placement. Fatmata stated, I spoke with our APS mold parter this morning and he feels there is nothing wrong with that course of action. Had there been any need to alter the daughters designated DPOA status APS would have made a move to do so earlier. She agreed that at this time it is best for us to make every effort to find pt. a fci living situation using the daughter as DPOA (as identified by official paperwork) if that is what is needed for CM to do so.
--- NOTE | 2020-10-30 12:49 | PC.NURSE ---
offer shower to pt. Pt refused and stating she will take a shower home. Pt was able to change brief, gown,roberto care on her own. I told pt she wont be home so might as well take a shower here, pt started to get agitated and insisted that she will be home today.
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
--- NOTE | 2020-10-30 14:14 | P.PN_ITS ---
Subjective Subjective Date Patient Seen: 10/30/20 Time Patient Seen: 08:14 Interval history: Per staff she has been cooperative. Still think she is getting vows renewed. No concerns from her standpoint except wants to leave hospital. Exam Vital Signs (past 8 hours): - 10/30/20 09:12 Temperature 98.5 F Pulse Rate 87 Respiratory Rate 21 Blood Pressure 129/77 Pulse Oximetry 100 Oxygen Delivery Method Room Air Oxygen Flow Rate 0 Narrative Exam Narrative: General: She is alert and oriented to name, date, and location. She is hard of hearing Heart: regular rate and rhythm without murmur Lungs: clear bilaterally Extremities: have chronic 1+ ankle edema PFSH Medical History Dementia HLD (hyperlipidemia) Social History household members: other Smoking Status: Never smoker alcohol intake: former Assessment & Plan Assessment & Plan narrative: Perri Gaytan is an 79 year old female with a past medical history of HLD and dementia admitted for difficulties with placement, continued adjustment of medications for her behavior. 1. Dementia vs psychotic disorder - She has been followed by psychiatry, appreciate recommendations. Agree with Dr. Johnson Ms. Gaytan does not have capacity to make own decisions. Patient was started on olanzapine 2.5 mg, will continue this. Today she is very pleasant and cooperative. - pending evaluation for possible guardianship, as has no known health poa - she continues with bedside sitter for safety protocol - DIRECTOR OF WOMEN'S SERVICES working on placement 2. HLD, chronic. - does not appear to be on home medications, listed as a chronic condition. No indication for lipid testing at this time. Dispo: Pending placement. DVT: Lovenox daily Code: Full per documentation, surrogate decision maker is not currently available, we are attempting to begin facilitation of state guardianship. Time Spent With Patient Time with patient: less than 15 minutes Quality VTE Deep Vein Thrombosis/Pulmonary Embolism Present on Admission: No
--- NOTE | 2020-10-30 14:35 | CM.DPNOTE ---
Placement [facility]ed [facility] in [place] that patient has a DPOA, dtr Yomaira, and Marianne Osman has started the updated assessment. [facility] appreciative for the update and requests she be kept looped in since she still has a bed available. [facility] in [place] is not able to accept patient at this time. CHIKIS
[2020-10-30] MEDS: OLANZapine 2.5 MG TABLET PO (20:42)
--- NOTE | 2020-10-31 00:31 | PC.NURSE ---
Addendum entered by Bobbi Morrison CNA 10/31/20 06:19: RONDA note: Patient has been sleeping since 0230. Denies need to go to the bathroom. Patient wants to sleep. Bed alarm on. 1:1 sitter. Original Note: RONDA note: patient woke up and is doing leg exercises in bed, telling me I've been asleep for 6 hours. Bed alarm on, patient is in bed.
[2020-10-31 10:32] VITALS: BP 124/70; PULSE 66; RESP 15; TEMP 36.6; O2SAT 98
[2020-10-31] MEDS: LORazepam 0.5 MG TABLET PO (11:46)
--- NOTE | 2020-10-31 12:09 | PC.NURSE ---
Patient has been concerned about wedding/vows/service today. Explained to her that she will be here at least until Monday. She is not happy with the situation. Was crying and tearful. Patient was offered 0.5mg PO Ativan for relaxation, and we wrote down the medication for her so she would know what she was given. Patient seems more relaxed since medication was given.
--- NOTE | 2020-10-31 12:53 | P.PN_ITS ---
Subjective Subjective Date Patient Seen: 10/31/20 Time Patient Seen: 07:53 Interval history: She is walking the halls with staff. She has been intermittently cooperative with staff suggestions to eat and shower. Exam Vital Signs (past 8 hours): - 10/31/20 10:32 Temperature 97.8 F Pulse Rate 66 Respiratory Rate 15 Blood Pressure 124/70 Pulse Oximetry 98 Oxygen Delivery Method Room Air Oxygen Flow Rate 0 Narrative Exam Narrative: General: She is alert and oriented to name, date, and location. She is hard of hearing Heart: regular rate and rhythm without murmur Lungs: clear bilaterally Extremities: have chronic 1+ ankle edema [facility] Medical History Dementia HLD (hyperlipidemia) Social History household members: other Smoking Status: Never smoker alcohol intake: former Assessment & Plan Assessment & Plan narrative: Perri Gaytan is an 79 year old female with a past medical history of HLD and dementia admitted for difficulties with placement, continued adjustment of medications for her behavior. 1. Dementia vs psychotic disorder - She has been followed by psychiatry, appreciate recommendations. Agree with Dr. Johnson Ms. Gaytan does not have capacity to make own decisions. Patient was started on olanzapine 2.5 mg, will continue this. Today she is very pleasant and cooperative. - pending evaluation for possible guardianship, as has no known health poa - she continues with bedside sitter for safety protocol - DIRECTOR OPERATIONS working on placement - daughter appears to be signed POA from documentation that is valid per APS 2. HLD, chronic. - does not appear to be on home medications, listed as a chronic condition. No indication for lipid testing at this time. Dispo: Pending placement. DVT: Lovenox daily Code: Full per documentation. Quality VTE Deep Vein Thrombosis/Pulmonary Embolism Present on Admission: No
[2020-10-31] MEDS: OLANZapine 2.5 MG TABLET PO (19:25)
--- NOTE | 2020-10-31 23:21 | PC.NURSE ---
Addendum entered by José Abrams CNA 11/01/20 01:09: Pt voluntarily wanted to rest, and is now sleeping soundly. Original Note: Start of shift for 1:1 pt is coloring, sitting comfortably, and pleasantly conversing with staff.
--- NOTE | 2020-11-01 07:12 | PC.NURSE ---
CYTOTECHNOLOGIST SUPERVISOR note: Patient slept until 0515. Patient then got up, went to the bathroom, changed her underpants and gown, staff changed her bedding. Patient washed her face, did oral care on herself, and then went for a walk through the halls with staff. Patient requested a purple face mask. We didn't have one. Offered her a Bryant Mouse one. Patient agreed. Patient has been in bed coloring with lights on since 0600.
[2020-11-01 09:14] VITALS: BP 122/68; PULSE 77; RESP 20; TEMP 36.6; O2SAT 98
--- NOTE | 2020-11-01 09:37 | P.PN_ITS ---
Subjective Subjective Date Patient Seen: 11/01/20 Time Patient Seen: 09:38 Interval history: She is walking the halls with staff. She has been intermittently cooperative with staff suggestions to eat and shower. She refused Lovenox injection today. Exam Vital Signs (past 8 hours): - 11/01/20 09:14 Temperature 97.8 F Pulse Rate 77 Respiratory Rate 20 Blood Pressure 122/68 Pulse Oximetry 98 Oxygen Delivery Method Room Air Oxygen Flow Rate 0 Narrative Exam Narrative: General: She is alert and oriented to name, date, and location. She is hard of hearing Heart: regular rate and rhythm without murmur Lungs: clear bilaterally Extremities: have chronic 1+ ankle edema PFSH Medical History Dementia HLD (hyperlipidemia) Social History household members: other Smoking Status: Never smoker alcohol intake: former Assessment & Plan Assessment & Plan narrative: Perri Gaytan is an 79 year old female with a past medical history of HLD and dementia admitted for difficulties with placement, continued adjustment of medications for her behavior. 1. Dementia vs psychotic disorder - She has been followed by psychiatry, appreciate recommendations. Agree with Dr. Johnson Ms. Gaytan does not have capacity to make own decisions. Patient was started on olanzapine 2.5 mg, will continue this. Today she is very pleasant and cooperative. - pending evaluation for possible guardianship, as has no known health poa - she continues with bedside sitter for safety protocol - SCIENTIFIC INFORMATICS LEADER working on placement - daughter appears to be signed POA from documentation that is valid per APS 2. HLD, chronic. - does not appear to be on home medications, listed as a chronic condition. No indication for lipid testing at this time. Dispo: Pending placement. DVT: Lovenox daily Code: Full per documentation. COVID-19 COVID-19 status: Negative Quality VTE Deep Vein Thrombosis/Pulmonary Embolism Present on Admission: No
--- NOTE | 2020-11-01 13:49 | PC.NURSE ---
Pt A&Ox2, forgetful and delusional. Pleasant this shift, and eating breakfast and snacks today. Pt refused lovenox injection. MD aware. Agreeable to assessment. LS CTA, BS +x4 LBM she states was 10/31. Noted compression stockings on, bilateral +2-3 edema in feet. Patient with severe fungal redness under L breast and moisture. mild redness to L groin with moisture. MD notified and recieved order for nystatin powder to rash, applied to areas. Pt remains awake majority of the day coloring and talking, no behavior disturbances this shift. Encouraged to shower but she refused believing there are cameras or people watching in the shower.
[2020-11-01] MEDS: NYSTATIN POWDER 15GM 1 APPLIC TOP (13:59)
[2020-11-01 15:49] VITALS: O2SAT 95
[2020-11-01 16:23] VITALS: BP 122/59; PULSE 75; RESP 16; TEMP 36.6; O2SAT 97
[2020-11-01] MEDS: OLANZapine 2.5 MG TABLET PO (20:10)
[2020-11-02] MEDS: NYSTATIN POWDER 15GM 1 APPLIC TOP (06:06)
--- NOTE | 2020-11-02 06:28 | PC.NURSE ---
patient has slept most of night. Now awake, pleasant and cooperative, oriented but still talking about having a spouse. Breath sounds CTA. HRR. Denies nausea. BT present and abdomen is soft. Incontinent of urine but also gets up and voids on toilet; denies dysuria, frequency or urgency. Lightly pink under breasts and in groins so Nystatin powder applied after cleansing skin as patient agreeable. Continued 1+ edema bilateral LE left > right; had LENIN stockings off overnight but not applied. Is independent with bed mobility and gets up with walker and SBA. Denies pain. Continues to have 1:1 sitter/observation for safety. Fall risk score is high and bed alarm is activated.
[2020-11-02 08:00] VITALS: BP 124/91; PULSE 85; RESP 16; TEMP 36.8; O2SAT 96
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
--- NOTE | 2020-11-02 13:26 | P.PN_ITS ---
Subjective Subjective Date Patient Seen: 11/02/20 Interval history: 79-year-old female admitted to the hospital with dimension behavioral disturbance. She has been awaiting placement. The patient is sitting up in the bed and I have seen her ambulating with her walker without difficulty. She denies any shortness of breath chest pain or any other kinds of pain. Exam Vital Signs (past 8 hours): - 11/02/20 08:00 Temperature 98.3 F Pulse Rate 85 Respiratory Rate 16 Blood Pressure 124/91 H Pulse Oximetry 96 Oxygen Delivery Method Room Air Oxygen Flow Rate 0 Narrative Exam Narrative: Elderly female hard hearing but in no obvious distress Lungs, clear to auscultation Cardiac exam: Regular rate and rhythm normal S1-S2 Abdomen: Soft and nontender Extremities: No edema PFSH Medical History Dementia HLD (hyperlipidemia) Social History household members: other Smoking Status: Never smoker alcohol intake: former Assessment & Plan Assessment & Plan narrative: Dementia vs psychotic disorder - She has been followed by psychiatry, appreciate recommendations. Agree with Dr. Johnson Ms. Gaytan does not have capacity to make own decisions. Patient was started on olanzapine 2.5 mg, will continue this. Today she is very pleasant and cooperative. - pending evaluation for possible guardianship, as has no known health poa - she continues with bedside sitter for safety protocol - ASSOCIATE PROFESSOR OF BIBLICAL STUDIES working on placement - daughter appears to be signed POA from documentation that is valid per APS -plans are underway for placement, anticipate discharge in 1-2 days 2. HLD, chronic. - does not appear to be on home medications, listed as a chronic condition. No indication for lipid testing at this time. Quality VTE Deep Vein Thrombosis/Pulmonary Embolism Present on Admission: No
[2020-11-02 18:00] VITALS: O2SAT 95
--- NOTE | 2020-11-02 18:16 | PC.NURSE ---
Addendum entered by Destinee Dowd R.N. 11/02/20 21:29: Relatively uneventful evening. Continues w/sitter. Denies any issues at this time. Awaiting placement. Call light w/in reach. Sitter in room Continue w/plan of care. Original Note: Pt drawing pictures. Denies discomfort. SpO2 95% RA, refused assessment. Ambulated in hallway w/staff. Continues to be w/sitter. Call light w/in reach.
--- NOTE | 2020-11-02 23:38 | PC.NURSE ---
Addendum entered by Heather White R.N. 11/03/20 05:46: Complains of head congestion/mucus in throat and requests 1 tab of Tylenol. Has been awake most of shift but pleasant and cooperative. Eating cereal this morning. Original Note: patient is alert and oriented. Currently lying in bed and very pleasant and cooperative with assessment. Breath sounds CTA. HRR. Denies nausea. BT present and patient reports having had BM earlier today. Has been both continent and incontinent of urine; denies dysuria, frequency or urgency. Able to turn herself in bed. Is able to walk with walker and SBA. Denies pain. Edema in bilateral LE; chronic left > right. LENIN stockings off for night. Plantar surface of feet dry and cracked; lotion applied. Refused Olanzipine earlier and again at this time. Indicates if she takes pills too often the area behind her kneecaps get like strings. Continues to have 1:1 sitter/observation for safety and bed alarm is activated as fall risk score is high.
[2020-11-03] MEDS: ACETAMINOPHEN 325 MG TABLET 650 MG PO (05:45)
--- NOTE | 2020-11-03 06:46 | PC.NURSE ---
At 0640am Pt. washed her sandals in the shower wouldn't listen, so I just made sure the Pt. was safe and don't fall especially when Pt. is bending down. Sandals are drying in the shower, Pt. seems to very steady on her feet with her walker.
[2020-11-03 09:00] VITALS: BP 116/49; PULSE 67; RESP 20; TEMP 36.8; O2SAT 99
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
--- NOTE | 2020-11-03 12:07 | PM.PN.1 ---
Subjective Subjective Date Patient Seen: 11/03/20 Interval history: Patient is pleasant and cooperative. She is very hard of hearing. She denies any pain, shortness of breath, or any difficulty. She refused her Olanzapine and lovenox last night. She has been ambulating well with her walker. She is agreeable to go to another facility after discharge. Exam Vital Signs (past 8 hours): - 11/03/20 09:00 Temperature 98.2 F Pulse Rate 67 Respiratory Rate 20 Blood Pressure 116/49 L Pulse Oximetry 99 Oxygen Delivery Method Room Air Oxygen Flow Rate 0 Narrative Exam Narrative: pleasant female sitting in her chair in no acute distress Lungs: Clear to auscultation CV: RRR nl Sl S2 Abd: soft/ non tender/ non distended Ext 1-2+ edema PFSH Medical History Dementia HLD (hyperlipidemia) Social History household members: other Smoking Status: Never smoker alcohol intake: former Assessment & Plan Assessment & Plan narrative: 79 y/o female previously diagnosed with dementia, now with fixed delusions. Per psychiatry she may have a psychotic disorder Overall she appears calm, cooperative, and less agitated. We are awaiting feedback from the state regarding placement at an alternative facility. Hyperlipdiemia-continue treatment Quality VTE Deep Vein Thrombosis/Pulmonary Embolism Present on Admission: No
[2020-11-03] MEDS: NYSTATIN POWDER 15GM 1 APPLIC TOP (12:42)
--- NOTE | 2020-11-03 13:58 | CM.DPC ---
Addendum entered by Morelia Degroot 11/03/20 14:50: [facility] have evaluated patient during hospitalization. They are agreeable to follow for outpatient mental health services as well, # [phone]. They should be notified of discharge disposition. AMALIA Original Note: DCP/Continued: DISCOVERY MANAGER reviewed chart on 11-01 and 11-02. Per notes, patient medically stable to d/c once long-term placement can be obtained. Placed call to state RAHUL/Marianne Osman on 11-01 (vm left) and 11-02. Spoke with Marianne via telephone on the afternoon of 11-02 and morning of 11-03. Marianne reports that she is currently working on contract for memory care placement. DISCOVERY MANAGER notified Marianne that bed has been located at [facility] in [place], contact is Belle # [phone]. Belle reports that she will come do bedside evaluation with patient on 11-03-20 at 3:OOpm. Per information already reviewed by [facility] they think they will be able to accept if state rate appropriate. Belle reports anticipated daily rate will be $160.00 per day. DISCOVERY MANAGER notified CM with state Marianne. She confirms that rate is reasonable if memory care facility needed and state administrators review and agree. Marianne reports that assessment will be sent to administrators no later than this afternoon (11-03-20) Marianne indicates that it may take anywhere from 24-72hrs to get approval. However, Marianne reports she will do her best to expedite. Marianne aware that patient is completely medical stable for discharge to safe environment. DISCOVERY MANAGER met with patient on 11-02 (used hearing equipment) to communicate. Patient reports on Monday that her plan is to return to [facility]. This DISCOVERY MANAGER notified patient that this is no longer an option. Patient reports yes it is. DISCOVERY MANAGER provided patient patient with copy of letter indicating that she is no longer a resident of [facility]. Patient frustrated with information. DISCOVERY MANAGER informed patient that CM team would follow up on 11-03-20. CM Mgr. Salcedo updated on above. In addition, to the above DISCOVERY MANAGER received phone call from ROCHELLE benedict/Yomaira # [phone] re: d/c plan. Daughter reports that she would love for patient to be placed somewhere nearby. Notified daughter that currently CM team and state looking at [facility] in [place]. Daughter in complete agreement with plan. Daughter also reports that she will assist with co-signing and financial matters if needed. Previous note indicate previous [facility] involvement however, CM resource manager forester Denisse has spoken with A.[employer]S. and there is not a current open case or financial guardian assigned to this patient. Therefore, current DPOA appropriate to assist. If further questions arise DISCOVERY MANAGER suggests A.P.S. be called. DISCOVERY MANAGER met with patient this AM. Patient alert and somewhat oriented. Patient now reports that she would like to go to [place]. Patient indicates that she thought about if over night and now would like to go. Patient actively drawing and writing notes to staff in room. Patient is requesting that her spouse (Olivia.Miah Doll) join her? Patient easily redirected and made aware that nobody was waiting for her downstairs. Patient made aware facility will do bedside evaluation today. She is agreeable. Also spoke with Dr. Johnson today, he reports patient alert with some orientation. Dr. Johnson confirms that patient told him she was going to [place]. Staff made aware of above and asked to reiterate d/c plan if needed. Patient should not be provided with false information in regards to d/c planning. This only facilitates wrong and/or incorrect information, which leads to more confusion. CM/resource manager forester Denisse notified. If [facility] accepts and rate agreed upon by state anticipate d/c and/or transfer by the end of this week? Marianne reports that it will depend on how quick the state reviews and agrees with rate. In the meantime, Dr. Lo updated. [facility] evaluating today and will bring admit paperwork. Daughter also updated and checking in daily with CM team. P: Pending. BC Dang
--- NOTE | 2020-11-03 15:51 | PC.NURSE ---
Addendum entered by Destinee Dowd R.N. 11/03/20 21:58: Relatively uneventful evening. Alert/cooperative Resting quietly at this time. Continues w/sitter. Call light w/in reach, bed alarm on for pt safety. Continue w/POC Original Note: Pt alert, sitting in chair, pleasant this afternoon. Lungs clear, SpO2 98% RA Pt assisted to BR w/o incidence. Staff from [facility] here to speak w/pt. Continues w/sitter for pt safety. Call light w/in reach,
[2020-11-03] MEDS: OLANZapine 2.5 MG TABLET PO (17:16)
[2020-11-03 18:00] VITALS: O2SAT 98
[2020-11-04 08:36] VITALS: BP 107/71; PULSE 85; RESP 15; TEMP 36.6; O2SAT 98
--- NOTE | 2020-11-04 11:06 | CM.DPC ---
DCP continued: I just received word from Marianne [facility] per her secure email: I just spoke with [facility] and sent the assessment over to them. Belle stated they will take her as long as I get the SDCP rate plus the $60.00 add on approved. I am working on getting the final things done so I can send it off to for approval and I don?t foresee any problems getting it approved. It usually takes a day or two to get it back so I want to get it in this morning. I will let you know when I get it back. Courtney Pardo TRAVEL PROFESSIONAL updated with this information.
--- NOTE | 2020-11-04 11:41 | PC.NURSE ---
Addendum entered by Jeanine Julian CNA 11/04/20 14:21: Pt does not wish to do any washing up today because she will be going tomorrow. Original Note: This INDUSTRIAL EQUIPMENT WIRER is doing 1:1 again with the pt for this morning. Pt has been very pleasant and remembers me from last time. It was explained to her that she will most likely go tomorrow and she has been quietly coloring for the morning. She seems aware of whats going on but still has moments where she is talking to someone that is not there. It sometimes seems like she is talking to her .
--- NOTE | 2020-11-04 13:16 | CM.DPC ---
DCP Cont: GLADIS called [facility] and she confirms that bedside assessment went well but that she is about to have a meeting with her administrators to confirm if they can accept pt pending financial agreement with the state. Belle states she left Marianne with [facility] a message yesterday and has not spoken to Marianne yet or received the updated assessment with daily rate yet. GLADIS called Marianne/[facility] this morning around 0900 and she confirms that she will fax the assessment to [facility] right now and call her to discuss pt further to determine if pt can be accepted at their facility. Plan: SW to follow for further decision from [facility] if they can accept pt and when and for completion of pwk by Hospitalist for admission to [facility]. BC Cheema
--- NOTE | 2020-11-04 13:52 | PM.PN.1 ---
Subjective Subjective Date Patient Seen: 11/04/20 Interval history: The patient is an 79-year-old female admitted to the hospital with a new diagnosis of delusional disorder. She continues to request that she wants to move back to [facility] with her . The patient was agreeable to taking her scheduled Zyprexa last evening. She is calm and cooperative at this time. She appears animated and excited about discharge. She specifically wanted to know when she could leave the hospital. Exam Vital Signs (past 8 hours): - 11/04/20 08:36 Temperature 97.8 F Pulse Rate 85 Respiratory Rate 15 Blood Pressure 107/71 Pulse Oximetry 98 Oxygen Delivery Method Room Air Oxygen Flow Rate 0 Narrative Exam Narrative: Pleasant home elderly female sitting in a chair in no acute distress Lungs: Clear to auscultation Cardiac exam: Regular rate and rhythm normal S1-S2 Abdomen: Soft nontender nondistended Extremities: No edema PFSH Medical History Dementia HLD (hyperlipidemia) Social History household members: other Smoking Status: Never smoker alcohol intake: former Assessment & Plan Assessment & Plan narrative: 1. Delusional disorder, verses dimension Patient is under the care of Dr. johnson Psychiatry. He is just taking medications accordingly. Patient does appear to have a delusional disorder and frequently will refer to her who was disease. She has at least calm not agitated and cooperative Plans are under care way for transfer to home care memory facility within the next 1-2 days Quality VTE Deep Vein Thrombosis/Pulmonary Embolism Present on Admission: No
--- NOTE | 2020-11-04 16:19 | PC.NURSE ---
Addendum entered by Destinee Dowd R.N. 11/04/20 20:12: Pt having uneventful evening. Cooperative/pleasant Continues w/sitter Call light w/in reach, Continue w/ plan of care. Original Note: Pt sitting in chair cooperative/ pleasant. Condition remains essentially unchanged SpO2 96% RA Continues w/sitter. Call light w/in reach.
[2020-11-04 18:00] VITALS: O2SAT 96
[2020-11-04] MEDS: OLANZapine 2.5 MG TABLET PO (18:55)
--- NOTE | 2020-11-05 05:51 | PC.NURSE ---
Addendum entered by Aura Briones CNA 11/05/20 05:57: Pt. really did't sleep much during the night, but she laid very quiet in bed til 0500am 11/05/20 Original Note: Pt. woke up at 0500am changed her brief and gown, I change her bed linens and walk with Pt. up and down the bobo, Pt is very steady on her feet with her walker and a couple of time up and down the bobo Pt. want some cereal and jello. Pt. seems pleasant this morning.
[2020-11-05 09:40] VITALS: BP 126/73; PULSE 60; RESP 20; O2SAT 98
--- NOTE | 2020-11-05 14:17 | CM.DPNOTE ---
DCP Note Two calls today to [facility] Cloth Mender Marianne Osman; No updated determination from state headquarters at this time re: rate. Marianne has requested expedited review to help secure the spot at [facility] in [place]. Following closely for updates and for eventual coordination of DC plan; IH to alternative long term care social worker care facility. CHIKIS
--- NOTE | 2020-11-05 14:25 | PM.PN.1 ---
Subjective Subjective Date Patient Seen: 11/05/20 Interval history: Patient is an 79-year-old female admitted to the hospital for dementia and delusions. She has been treated by Psychiatry is currently awaiting placement Exam Vital Signs (past 8 hours): - 11/05/20 09:40 Pulse Rate 60 Respiratory Rate 20 Blood Pressure 126/73 Pulse Oximetry 98 Oxygen Delivery Method Room Air Oxygen Flow Rate 0 Narrative Exam Narrative: Patient is calm and cooperative coloring in her chair in no acute distress Lungs: Clear to auscultation Cardiac exam regular rate and rhythm normal S1-S2 Abdomen: Soft and nontender Extremities: No edema Psychiatric exam: Patient does ask for her and states she wants to go to a facility only of her is allowed to go. Nursing is redirecting the patient to the facility and encouraging her to be accepting of the disposition in place [facility] Medical History Dementia HLD (hyperlipidemia) Social History household members: other Smoking Status: Never smoker alcohol intake: former Assessment & Plan Assessment & Plan narrative: 1. Delusional disorder -continue medications as prescribed 2. Hyperlipidemia 3. Patient is continuing to await placement Quality VTE Deep Vein Thrombosis/Pulmonary Embolism Present on Admission: No
[2020-11-05 16:00] VITALS: O2SAT 98
[2020-11-05] MEDS: OLANZapine 2.5 MG TABLET PO (18:50)
--- NOTE | 2020-11-05 19:00 | PC.NURSE ---
Shift note: Patient AxOx3, can make needs know but becomes quite agitated in regards to her future living situations. Is having auditory and visual hallucinations of her and told this RN that she has spoken to him today through a computer that floats in the air that only she can hear. He has told her that he's in her room at [facility] and that no one has come to collect and pack her things but has also told her that he won't be able to visit her in [place] at [facility]. Any attempts to redirect or reeducate her is met with agitation and yelling on her part calling both facilities and staff liars. She can be overheard having conversations with her hallucinations. She is otherwise pleasant regarding any other topic and is cooperative with her 1:1 sitter and this RN. Has taken walks around the floor and has been continent of bladder/bowel this shift. High fall risk d/t inpatient fall and decreased mentation.
[2020-11-06 07:38] VITALS: BP 140/89; PULSE 72; RESP 16; TEMP 36.6; O2SAT 98
--- NOTE | 2020-11-06 12:24 | CM.DPNOTE ---
Spoke to Marianne Ho to check on progress of paperwork. She reports it was turned in 11/05 am and is still in HQ. Marianne was not optomistic that the paperwork would clear by today which means pt. will remain until Monday at earliest because of the weekend. I requested and was given her [employer] W[employer] Production Supervisor's name Antony Arora. [phone] and left a VM to clarify status and time frame.
--- NOTE | 2020-11-06 14:08 | CM.DPNOTE ---
DCP Note Met w/patient this morning per her request; Patient asks: when am I going home? This CATTLE DEHORNER responded: we are working on that place in [place], the one you saw pictures of Patient: No, I am going home to [place] This CATTLE DEHORNER: [place] is no longer an option, it will not work out Patient: Yes it will, my is waiting for me there and he cannot go to the other place This CATTLE DEHORNER attempted redirection and discussed possibly joining her at [facility] in [place]? Patient very pleasant and agreeable until brought up, patient became more agitated so this CATTLE DEHORNER attempted redirection again and patient calm and cooperative once more, playing cards w/ENGINEERING OPERATOR. JW
--- NOTE | 2020-11-06 14:48 | PM.PN.1 ---
Subjective Subjective Date Patient Seen: 11/06/20 Time Patient Seen: 14:48 Interval history: Patient is an 79-year-old female admitted to the hospital for dementia and delusions. She has been treated by Psychiatry is currently awaiting placement. Patient without complaints today. Exam Vital Signs (past 8 hours): - 11/06/20 07:38 Temperature 98 F Pulse Rate 72 Respiratory Rate 16 Blood Pressure 140/89 Pulse Oximetry 98 Oxygen Delivery Method Room Air Oxygen Flow Rate 0 Narrative Exam Narrative: Patient is calm and cooperative coloring in her chair in no acute distress Lungs: Clear to auscultation Cardiac exam regular rate and rhythm normal S1-S2 Abdomen: Soft and nontender Extremities: No edema PFSH Medical History Dementia HLD (hyperlipidemia) Social History household members: other Smoking Status: Never smoker alcohol intake: former Assessment & Plan Assessment & Plan narrative: Perri Gaytan is an 79 year old female with a past medical history of HLD and dementia admitted for difficulties with placement, continued adjustment of medications for her behavior. 1. Dementia vs psychotic disorder - She has been followed by psychiatry, appreciate recommendations. Agree with Dr. Johnson Ms. Gaytan does not have capacity to make own decisions. Patient was started on olanzapine 2.5 mg, will continue this. Today she is very pleasant and cooperative. - CONSUMER SERVICES CONSULTANT working on placement, maybe Monday. 2. HLD, chronic. - does not appear to be on home medications, listed as a chronic condition. No indication for lipid testing at this time. Dispo: Pending placement. DVT: Lovenox daily Code: Full per documentation. Quality VTE Deep Vein Thrombosis/Pulmonary Embolism Present on Admission: No
[2020-11-06] MEDS: OLANZapine 2.5 MG TABLET PO (18:45)
--- NOTE | 2020-11-06 19:38 | PC.NURSE ---
Addendum entered by Beatrice Greene R.N. 11/07/20 03:45: COOK SEAFOOD assignment change. Fatmata now 1:1 with this patient who remains asleep and quiet in bed in room. Addendum entered by Beatrice Greene R.N. 11/07/20 02:22: Pt continues to rest quietly in bed softly snoring. 1:1 with COOK SEAFOOD monitoring. Addendum entered by Beatrice Greene R.N. 11/06/20 23:49: Checked in with COOK SEAFOOD covering medical doctor 1:1 with this patient. Pt in bed safely sleeping without signs of distress or discomfort. Will defer any assessment until pt awake, but will allow for uninterrupted sleep. Addendum entered by Beatrice Greene R.N. 11/06/20 22:16: Pt was assisted in hs care by Consuelo BOND. Now tucked quietly in bed and has remained asleep with COOK SEAFOOD 1:1 monitoring. Original Note: Pt has been 1:1 with COOK SEAFOOD since beginning of shift and quiet and content in room until this fiction and nonfiction writer prose hears raised voices coming from pt's room. When this fiction and nonfiction writer prose arrived to pt's room, pt was speaking very loudly to staff members. Pt heard to say, I've been here three weeks and I just want to go across the street to see my . Staff present in room attempting to calm pt is unsuccessful. All staff leave room as pt scoots self around room 209 in walker chair and pt places items in belongings bags. Is stating going to leave and go across the street to home. This fiction and nonfiction writer prose enters pt room and is face to face with pt on pt's level. Allowed pt to verbalize frustration at remaining in hospital for three weeks and not able to go home to see . Pt further states is renewing wedding vows tomorrow. Pt becomes tearful and continues to speak in loud voice. Empathized with pt's frustration and encouraged pt to take this discussion up with individuals who are managing this situation in the morning. Encouraged pt to take med, continue to interact with RONDA Cordero (with whom pt has developed a cooperative rapport), sleep tonight in this dwelling and re-approach and inquire in the morning. Pt does not become threatening or physical, just verbal in describing frustration. I'm the boss of myself, I'm in charge of myself. Pt agreeable to assessment, taking meds, eating snack and then going to sleep for night. Pt is calm, cooperative and pleasant upon this fiction and nonfiction writer prose's exit from room.
--- NOTE | 2020-11-06 23:50 | PC.NURSE ---
Pt is sleeping at the moment. Will continue to monitpr pt.
[2020-11-07 07:07] VITALS: BP 119/77; PULSE 85; RESP 18; TEMP 35.8; O2SAT 96
--- NOTE | 2020-11-07 09:44 | PC.NURSE ---
Addendum entered by Selene Burnham R.N. 11/07/20 13:45: Patient is laughing and having a nice time talking to PROSPECTING DRILLER in her room. She is drawing and playing cards now. Has been appropriate this shift. Original Note: Patient refused her lovonox injection this morning. She keeps asking if she is going to go back to her home, we are being honest with her and letting her know everyday that we are working on her discharge for placement. Patient does want to go back to [facility] but this is not in her plan for discharge. She is sitting in her room and visiting with the single ending machine operator, she is in good spirits and resting comfortably in her chair. Patient has also ambulated in the halls this morning.
--- NOTE | 2020-11-07 10:29 | P.PN_ITS ---
Subjective Subjective Date Patient Seen: 11/07/20 Time Patient Seen: 10:30 Interval history: Patient is an 79-year-old female admitted to the hospital for dementia and delusions. She has been treated by Psychiatry is currently awaiting placement. Patient without complaints today other than she wants to return home across the street, continually tells us her wedding is today and needs to leave. Intermittently agitated but redirectable short term. Exam Vital Signs (past 8 hours): - 11/07/20 07:07 Temperature 96.4 F L Pulse Rate 85 Respiratory Rate 18 Blood Pressure 119/77 Pulse Oximetry 96 Oxygen Delivery Method Room Air Oxygen Flow Rate 0 Narrative Exam Narrative: Patient is calm and cooperative coloring in her chair in no acute distress Lungs: Clear to auscultation Cardiac exam regular rate and rhythm normal S1-S2 Abdomen: Soft and nontender Extremities: No edema PFSH Medical History Dementia HLD (hyperlipidemia) Social History household members: other Smoking Status: Never smoker alcohol intake: former Assessment & Plan Assessment & Plan narrative: Perri Gaytan is an 79 year old female with a past medical history of HLD and dementia admitted for difficulties with placement, continued adjustment of medications for her behavior. 1. Dementia vs psychotic disorder - She has been followed by psychiatry, appreciate recommendations. Agree with Dr. Johnson Ms. Gaytan does not have capacity to make own decisions. Patient was started on olanzapine 2.5 mg, will continue this. - TAPE COATER working on placement, maybe Monday. 2. HLD, chronic. - does not appear to be on home medications, listed as a chronic condition. No indication for lipid testing at this time. Dispo: Pending placement. DVT: Lovenox daily Code: Full per documentation. COVID-19 COVID-19 status: Negative Quality VTE Deep Vein Thrombosis/Pulmonary Embolism Present on Admission: No
--- NOTE | 2020-11-07 18:23 | PC.NURSE ---
Shift note: Patient refused her olanzapine tonight stating it makes my legs feel like they have strings.
[2020-11-08 07:00] VITALS: BP 130/84; PULSE 88; RESP 16; TEMP 37; O2SAT 98
--- NOTE | 2020-11-08 09:34 | P.PN_ITS ---
Subjective Subjective Date Patient Seen: 11/08/20 Time Patient Seen: 09:34 Interval history: Patient is an 79-year-old female admitted to the hospital for dementia and delusions. She has been treated by Psychiatry is currently awaiting placement. Patient without complaints today. Exam Vital Signs (past 8 hours): Oxygen Delivery Method Room Air Oxygen Flow Rate 0 Narrative Exam Narrative: Patient is calm and cooperative coloring in her chair in no acute distress Lungs: Clear to auscultation Cardiac exam regular rate and rhythm normal S1-S2 Abdomen: Soft and nontender Extremities: No edema PFSH Medical History Dementia HLD (hyperlipidemia) Social History household members: other Smoking Status: Never smoker alcohol intake: former Assessment & Plan Assessment & Plan narrative: Perri Gaytan is an 79 year old female with a past medical history of HLD and dementia admitted for difficulties with placement, continued adjustment of medications for her behavior. 1. Dementia vs psychotic disorder - She has been followed by psychiatry, appreciate recommendations. Agree with Dr. Johnson Ms. Gaytan does not have capacity to make own decisions. Patient was started on olanzapine 2.5 mg, will continue this. - ENDBAND SIZER working on placement, maybe Monday. 2. HLD, chronic. - does not appear to be on home medications, listed as a chronic condition. No indication for lipid testing at this time. Dispo: Pending placement. DVT: Lovenox daily, patient intermittently refusing. Code: Full per documentation. COVID-19 COVID-19 status: Negative Quality VTE Deep Vein Thrombosis/Pulmonary Embolism Present on Admission: No
[2020-11-08 12:00] VITALS: O2SAT 98
--- NOTE | 2020-11-08 12:33 | PC.NURSE ---
Addendum entered by Emmy Gray R.N. 11/08/20 14:34: Patient has walked twice in the hallway with sba; very appropriate on walk, remembering to wear mask, saying hello to passer-bys; Patient continues to color and stay occupied and calm in room; pt has eaten 2 granola bars and a protein shake; independent in the bathroom. Original Note: Patient has been calm and occupied with coloring throughout the morning. At 1230, patient is agitated and asking why isn't my here and where is his meal. This RN trying to redirect and reassure.
[2020-11-08] MEDS: OLANZapine 2.5 MG TABLET PO (19:40)
--- NOTE | 2020-11-08 19:43 | PC.NURSE ---
patient sitting in room calm and pleasant singing. Patient has spent time coloring, playing cards with 1:1 and walked in halls with SBA. Patient was agreeable to taking her medication this evening stating, yes I should take it since I didn't last evening. Patient questions if tomorrow will be the day she will get to go home with her daughter.
[2020-11-09 10:10] VITALS: BP 119/69; PULSE 72; RESP 15; TEMP 36.4; O2SAT 100
--- NOTE | 2020-11-09 11:32 | P.PN_ITS ---
Subjective Subjective Date Patient Seen: 11/09/20 Time Patient Seen: 11:32 Interval history: Patient is an 79-year-old female admitted to the hospital for dementia and delusions. She has been treated by Psychiatry is currently awaiting placement, delayed again until possibly Monday per PIPE RACKER. Patient without complaints today. Exam Vital Signs (past 8 hours): - 11/09/20 10:10 Temperature 97.6 F Pulse Rate 72 Respiratory Rate 15 Blood Pressure 119/69 Pulse Oximetry 100 Oxygen Delivery Method Room Air Oxygen Flow Rate 0 Narrative Exam Narrative: Patient is calm and cooperative coloring in her chair in no acute distress Lungs: Clear to auscultation Cardiac exam regular rate and rhythm normal S1-S2 Abdomen: Soft and nontender Extremities: No edema PFSH Medical History Dementia HLD (hyperlipidemia) Social History household members: other Smoking Status: Never smoker alcohol intake: former Assessment & Plan Assessment & Plan narrative: Perri Gaytan is an 79 year old female with a past medical history of HLD and dementia admitted for difficulties with placement, continued adjustment of medications for her behavior. 1. Dementia vs psychotic disorder - She has been followed by psychiatry, appreciate recommendations. Agree with Dr. Johnson Ms. Gaytan does not have capacity to make own decisions. Patient was started on olanzapine 2.5 mg, will continue this. - PIPE RACKER working on placement, maybe Monday. 2. HLD, chronic. - does not appear to be on home medications, listed as a chronic condition. No indication for lipid testing at this time. Dispo: Pending placement. DVT: Lovenox daily, patient intermittently refusing. Code: Full per documentation. Quality VTE Deep Vein Thrombosis/Pulmonary Embolism Present on Admission: No
[2020-11-09 12:00] VITALS: O2SAT 98
--- NOTE | 2020-11-09 16:02 | CM.DPC ---
DCP/continued: Reviewed chart. Received phone call from [facility] and she reports approval for placement has been received. Per Marianne current daily rate is $162.00. STRIPPER AND OPAQUER APPRENTICE called at [facility] in [place] this AM. reports that they need to do some bed swaps but plan to accept patient on Monday11-11-2020. STRIPPER AND OPAQUER APPRENTICE left vm with Marianne to call and provide [facility] with daily rate information. STRIPPER AND OPAQUER APPRENTICE updated CM /Denisse and EDUARDOO/Catina Hanson of above. Nursing staff aware that patient will be transferred to [facility] on Monday11-11-2020. Daughter/Yomaira to be notified prior to transfer. P: [facility] in [place]. BC Dang
[2020-11-09] MEDS: OLANZapine 2.5 MG TABLET PO (19:21)
[2020-11-10 10:00] VITALS: BP 116/70; PULSE 74; RESP 16; TEMP 36.6; O2SAT 100
[2020-11-10 12:00] VITALS: O2SAT 96
--- NOTE | 2020-11-10 14:38 | PM.PN.1 ---
Subjective Subjective Date Patient Seen: 11/10/20 Interval history: Perri is an 79-year-old female admitted to the hospital for agitation, questionable psychosis. She is adamant that she will not go to home care. She is at times agitated and anxious. She quickly calms down and is cooperative Patient reiterates that she does not want to go to home care. She is requesting that her in daughter and county attorney review this. When calm she is able to ambulate without difficulty. She has no complaints of pain. Her lungs are clear to auscultation Cardiac exam regular rate and rhythm normal S1-S2 Abdomen soft nontender Impression acute psychosis, verses dementia Plan continue medications as prescribed, await placement Exam Vital Signs (past 8 hours): - 11/10/20 10:00 11/10/20 12:00 Temperature 98 F Pulse Rate 74 Respiratory Rate 16 Blood Pressure 116/70 Pulse Oximetry 100 96 Oxygen Delivery Method Room Air Oxygen Flow Rate 0 PFSH Medical History Dementia HLD (hyperlipidemia) Social History household members: other Smoking Status: Never smoker alcohol intake: former Quality VTE Deep Vein Thrombosis/Pulmonary Embolism Present on Admission: No
--- NOTE | 2020-11-10 16:04 | PC.NURSE ---
Patient has been getting agitated and angry today and yelling I'm not going to [facility], when it is mentioned by the care management team she gets frustrated and wants to roam the halls so she can talk to someone in charge. Patient has also been talking to her invisible today about these matters and said that her is talking to a show host or hostess. When patient escalates, all nursing staff is trying to deescalate and take her mind off of things with coloring, conversations, KARAN, and re-direction. Patient remains in good spirits when there is no mention of the [facility]. Patient's daughter called today to talk to patient about going to [facility], this frustrated patient as well and nursing staff re-directed patient and soothed her frustration after the phone call.
--- NOTE | 2020-11-10 16:32 | CM.DANOTE ---
KNOCKOUT MAN updated note: Reviewed chart. Current d/c plan includes patient discharging to [facility] in [place] tomorrow 11-11-20. Received phone call from Belle at [facility] this AM. She reports that she has not yet received contract from [facility] on daily rate? Belle reports that herself and and supervisor looping have made several attempts to reach RAHUL/Marianne Osman today. KNOCKOUT MAN has also left messages to Marianne for return phone call BATSHEVA to either [facility] or [facility]. Neither has received any call backs today from [facility]. Belle reports that they cannot accept with only verbal agreement from Marianne. They need daily rate and copy of contract prior to patient admitting to [facility]. In addition to the above placed call to [facility] supervisor looping/ Tiffanie Arora phone# [phone] vm left indicating that we need the state to contact [facility] BATSHEVA to provide them with written daily rate and contract. At approximately 4:30pm today no word from Tiffanie or Marianne. Belle at [facility] reports that she will re-attempt to get information in the AM. In addition, KNOCKOUT MAN team to follow closely. Spoke with daughter/DPOA Yomaira this afternoon she confirms that she has done paperwork and agreeable to d/c plan. At this time it is unclear how much money patient will have to pay out of pocket for placement. This depends on state rate? Daughter reports that she is having difficulty assessing patient's bank account with DPOA paperwork. RAHUL/Mgr. Salcedo called [facility] to check on there specific guidelines for DPOA to withdrawal funds for long-term placement of patient. Reyna at [facility] reports that they need 2 letters from 2 different providers indicating patient unable to cognitively manage her financial affairs. Dr. Lo in agreement to do 1 letter. Message left with listed PCP/Ayanna Gloria at [place] requesting second letter. Daughter made aware of above. [facility] reports psychiatrist cannot do letter needs to be completed by providers that have seen patient on regular basis on both inpatient and outpatient basis. KNOCKOUT MAN met with patient today. Patient alert not oriented. Patient reports that she is not going to [facility] tomorrow. Patient reports that she prefers to d/c home or to her daughter's. Patient made aware several times today that [facility] cannot accommodate her needs any longer. 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 [facility] and daughter/Yomaira made aware of patient's behavior today. Daughter reiterated over the phone that patient cannot go to her house or return to [facility]. Patient paranoid and reports that you are lying. [facility] reports that they are used to this behavior at [facility], they believe that patient is sensing change is coming and regressing back to wanting to go to her previous home [facility]. Belle appreciative of update and agreeable to assist if needed. P: Currently unable to transfer this patient until state provides [facility] with rate and documentation. D/C anticipated for tomorrow 11-11-20. Dr. Lo will call Dr. Johnson to get any additional medications recommendations. D/C plan remains to transfer patient to [facility] tomorrow 11-11-20. For safety concerns and unpredictable behavior recommend BLS transport. BC Dang
[2020-11-10] MEDS: OLANZapine 2.5 MG TABLET PO (17:06)
[2020-11-11 07:00] VITALS: BP 121/74; PULSE 70; RESP 17; TEMP 36.3; O2SAT 98
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
[2020-11-11] MEDS: LORazepam 0.5 MG TABLET PO (09:29)
--- NOTE | 2020-11-11 10:51 | PC.NURSE ---
Report given to Anil at [phone]. Patient packed her belongings with HALL CLEANER this morning and is ready for transport. Denies pain or other complaint this morning. Picked up by NOEMI.
--- NOTE | 2020-11-11 11:55 | CM.DPC ---
DCP/continued: Reviewed chart. Placed call to [facility] CM/Marianne Osman, Tiffanie Arora, and Annie Alonso voice messages left for them all re: placing patient at [facility] in [place] today. Per at facility she has nor received anything from [facility] in writing confirming daily rate. As of 10:00 AM no return call from any of the [facility] employees listed above. Received call from Belle at [facility] indicating that she has spoken with someone from the [facility] (not assigned CM) that confirmed patient's daily rate. Therefore, in agreement to accept. Patient's daughter/Yomaira aware and agreeable to transfer. In addition, notified [place] (Marleny Jose Luis) of patient's transfer today. Non-urgent BLS form completed and signed by provider. Per medical team most appropriate transport mode is BLS due to patient's dementia and psychosis. Patient has displayed some agitation within the last 24hrs. RN given number to call nursing report to [facility]. Orders and copy of scripts faxed to [facility] and copy sent in packet with patient. No additional needs identified. P: [facility] in [place] today. BC Dang
[2020-11-11 13:00] LABS: COVID19 -Nasal RAPID Negative (Negative)
== END 2020-11-11 10:56 ==
LOC: ED 10-22 07:23 → AC 10-22 13:48
PROVIDERS: Admitting Provider Internal Medicine; Emergency Provider Emergency Medicine; PCP Nurse Practitioner Family; Referring Provider Emergency Medicine; Visit Provider Internal Medicine
DX: F03.91 Unspecified dementia, unspecified severity, with behavioral disturbance (principal); F05 Delirium due to known physiological condition; E78.5 Hyperlipidemia, unspecified; Z20.822 Contact with and (suspected) exposure to COVID-19
CPT/HCPCS: 36415; 70450; 80053; 80305; 80320; 81003; 84443; 85025; 87635; 90792; 93005; 96372; 97116; 97161; 97165; 97535; 99225; 99226; 99232; 99233; 99284; C9803; G0378; J1630